=== PATIENT | female | born 1990 | race Caucasian/White ===

== ENCOUNTER 2019-04-21 07:59 | Outpatient (RCR) | payer MEDICAID, SELFPAY ==
[2019-04-21 08:03] VITALS: BMI 52.9
[2019-04-21 08:11] VITALS: BMI 52.9
== END 2019-07-20 23:59 | disposition home or self-care (01) ==
LOC: ANHDMC 07:59
PROVIDERS: Visit Provider Obstetrics & Gynecology
DX: R63.5 Abnormal weight gain (principal); Z71.3 Dietary counseling and surveillance
CPT/HCPCS: 97802

== ENCOUNTER 2019-05-15 21:52 | Observation (INO) | payer MEDICAID, SELFPAY ==
[2019-05-15 22:03] VITALS: BP 149/93; PULSE 116
[2019-05-15 22:16] VITALS: BP 131/81; PULSE 106
--- NOTE | 2019-05-15 22:16 | PC.NURSE ---
pt came into L&D c/o elevated blood sugars. pt states that she has GDM-diet controlled. She checked her blood sugar 1 hour after eating- 173 and rechecked it 1 hour later and it was 189. pt states that she hasnt had any problems with blood sugars until now.
[2019-05-15 22:31] VITALS: BP 116/70; PULSE 108
[2019-05-15 22:46] VITALS: BMI 52.2
--- NOTE | 2019-05-15 22:49 | LDADM ---
This patient, Franca Galvan, was admitted to [facility] on 05/15/19 at 21:52. Plans for labor, pain management and were discussed with patient. Patient/family oriented to hospital policies and general routines including ID bracelet, bed and alarms, visiting hours, pain management, procedures, bathroom and other care routines, personal items, smoking policy, room service/diet and guest tray routines, infant security routines, and visiting hours. Patient/Family are encouraged to report perceived risks to care and to ask questions if they do not understand what they are told or what they should do. See OBIX for further documentation.
--- NOTE | 2019-05-15 22:52 | PC.NURSE ---
[id number]- Dr. Espinal paged through call service [id number]- Dr. Espinal called back. informed of patient admission, lab results discussed. d/c pt home with instructions to continue to monitor BS's and bring the list into the office at the next scheduled office visit.
[2019-05-15 23:01] LABS: Glucose Point of Care 105 (65-105)
--- NOTE | 2019-05-17 13:18 | PM.OBTRLD ---
OB - Triage/Final Diagnosis Visit Information Reason for evaluation: threatened labor Evaluation Laboratory results: Laboratory Tests 05/15/19 22:08 POC Capillary Glucose 105
== END 2019-05-15 22:50 | disposition home or self-care (01) ==
PROVIDERS: Admitting Provider Obstetrics & Gynecology; Visit Provider Obstetrics & Gynecology
DX: O47.03 False labor before 37 completed weeks of gestation, third trimester (principal); Z3A.33 33 weeks gestation of pregnancy
CPT/HCPCS: G0378; G0379

== ENCOUNTER 2019-06-09 11:20 | Outpatient (RCR) | payer MEDICAID, SELFPAY ==
[2019-06-02 11:20] VITALS: BP 138/83; PULSE 94
--- NOTE | 2019-06-02 11:49 | PC.NURSE ---
BPP 10/20 on 06/02/2019
[2019-06-06 16:24] VITALS: BP 126/82; PULSE 95
--- NOTE | ~2019-06-09 | US_ITS ---
EXAMINATION: US OB BPP wo non-stress EXAM DATE: 06/02/2019 11:45 INDICATION: Gestational diabetes. Third trimester. TECHNIQUE: Pelvic obstetrical transabdominal sonogram was performed by a technologist. There are mu ltiple grayscale and Doppler images available for interpretation. FINDINGS: There is a single fetus identified in vertex presentation with a heart rate of 165 beats pe r minute. The placenta is located in the anterior fundal position. There is no sonographic evidence of retroplacental hemorrhage identified. BIOPHYSICAL PROFILE (performed by the technologist) breathing (30 sec sustained breathing in 30 minutes): 2 out of 2 movement (3 gross body movements in 30 minutes): 2 out of 2 tone (one episode of vpgdxjc-rvijmpquy-pmrxmwp limb movement): 2 out of 2 Amniotic fluid pocket (2 cm): 2 out of 2 Total score: 8 out of 8 IMPRESSION: 1. Single fetus with heart rate of 165 bpm. 2. Normal biophysical profile score of 8 out of 8. Reviewed, dictated and finalized at location A.
--- NOTE | ~2019-06-09 | US_ITS ---
EXAMINATION: US OB BPP wo non-stress DATE: 06/06/2019 16:28 INDICATION: Gestational diabetes. Third trimester. TECHNIQUE: Real-time pelvic ultrasound was performed. COMPARISON: Ultrasound 06/02/2019, 11/10/2018 FINDINGS: There is a single living fetus in vertex presentation. The placenta is fundal. heart rate is 1 44 beats per minute (bpm). Biophysical profile performed by the technologist: breathing (30 sec sustained breathing in 30 minutes): 2 out of 2 movement (3 gross body movements in 30 minutes): 2 out of 2 tone (one episode of lpmznds-tesgvcpby-nhlyoab limb movement): 2 out of 2 Amniotic fluid pocket (2 cm): 2 out of 2 Total score: 8 out of 8 IMPRESSION: 1. Single living fetus in vertex presentation. 2. Biophysical profile 8 out of 8. Reviewed, dictated and finalized at location A.
[2019-06-09 12:46] VITALS: BP 127/77; PULSE 103
== END 2019-06-13 14:47 | disposition home or self-care (01) ==
LOC: ANHOBOP 11:20
PROVIDERS: Visit Provider Obstetrics & Gynecology
DX: O24.419 Gestational diabetes mellitus in pregnancy, unspecified control (principal); Z3A.35 35 weeks gestation of pregnancy; Z3A.36 36 weeks gestation of pregnancy
CPT/HCPCS: 59025; 76819

== ENCOUNTER 2019-06-20 11:20 | Outpatient (RCR) | payer MEDICAID, OTHER, SELFPAY ==
[2019-06-13 12:45] VITALS: PULSE 98
--- NOTE | ~2019-06-20 | US_ITS ---
EXAMINATION: US OB BPP wo non-stress DATE: 06/20/2019 12:24 INDICATION: Gestational diabetes. Third trimester. TECHNIQUE: Real-time pelvic ultrasound was performed. COMPARISON: Ultrasound 06/13/2019 FINDINGS: There is a single living fetus in vertex presentation. The placenta is anterior. heart rate is 149 beats per minute (bpm). The amniotic fluid volume is subjectively normal. Biophysical profile performed by the technologist: breathing (30 sec sustained breathing in 30 minutes): 2 out of 2 movement (3 gross body movements in 30 minutes): 2 out of 2 tone (one episode of lecpdjh-nqbnbodiu-vbgyysm limb movement): 2 out of 2 Amniotic fluid pocket (2 cm): 2 out of 2 Total score: 8 out of 8 IMPRESSION: 1. Single living fetus in vertex presentation. 2. Biophysical profile 8 out of 8. Reviewed, dictated and finalized at location A.
--- NOTE | ~2019-06-20 | US_ITS ---
EXAMINATION: US OB limited w BPP DATE: 06/13/2019 13:12 INDICATION: Gestational diabetes, third trimester TECHNIQUE: Real-time pelvic ultrasound was performed. The interpreting radiologist was not present fo r the study. COMPARISON: 06/06/2019 FINDINGS: There is a single living fetus in vertex presentation. The placenta is anterior. heart rate is 157 beats per minute (bpm). The amniotic fluid index is 12.6 cm which is normal Biophysical profile performed by the technologist: breathing (30 sec sustained breathing in 30 minutes): 2 out of 2 movement (3 gross body movements in 30 minutes): 2 out of 2 tone (one episode of wxavdar-hxljtsfqg-mlepwrd limb movement): 2 out of 2 Amniotic fluid pocket (2 cm): 2 out of 2 Total score: 8 out of 8 IMPRESSION: 1. Single living fetus in vertex presentation. 2. Biophysical profile 8 out of 8. 3. Normal amniotic fluid index. Reviewed, dictated and finalized at location A.
[2019-06-20 12:23] VITALS: BP 136/82; PULSE 98
== END 2019-06-22 07:40 | disposition home or self-care (01) ==
LOC: ANHOBOP 11:20
PROVIDERS: Visit Provider Obstetrics & Gynecology
DX: O24.419 Gestational diabetes mellitus in pregnancy, unspecified control (principal); Z3A.37 37 weeks gestation of pregnancy; Z3A.38 38 weeks gestation of pregnancy
CPT/HCPCS: 59025; 76815; 76819

== ENCOUNTER 2019-06-21 10:13 | Inpatient (IN) | payer OTHER, SELFPAY ==
[2019-06-21] VITALS (42 sets, daily range): BP systolic 104–203; BP diastolic 66–186; PULSE 77–176; RESP 16–18; TEMP 35.9–36.9; O2SAT 98–100; BMI 56.0
--- NOTE | 2019-06-21 10:58 | WPDANESEPPF ---
Anes - Initial Pre Proc Eval Procedure: Operation Date: 06/28/19 12:00 Proposed Procedures p Primary Section - Shyam Espinal MD Date/Time: 06/21/19 10:58 Surgeon: Shyam Espinal MD Pre Op Diagnosis: hypertension in pregancy/c/s Patient Data Age: 28 Gender: F Height: Weight: Last Vital Signs Pulse 112 H 06/21/19 10:46 BP 157/91 H 06/21/19 10:46 Allergies Allergy/AdvReac Type Severity Reaction Status Date / Time diphenhydramine AdvReac Hyperactive Verified 06/05/19 12:30 [From Benadryl] Home Medications Medication Instructions Recorded Confirmed Type PNV cmb#95-ferrous fumarate-FA 1 tablet PO DAILY 06/05/19 06/06/19 History [] aripiprazole [Abilify] 10 mg PO DAILY 06/05/19 06/06/19 History aspirin [Aspirin Low Dose] 81 mg PO DAILY 06/05/19 06/06/19 History Patient hx anesthesia problems: post op nausea/vomiting Family hx anesthesia problems: none PMFSH Past Medical History Medical History Achalasia Anxiety Bipolar 1 disorder Diabetes Family History Family History Mother Multiple sclerosis Hypertension Grandparent Parkinson disease Father Colon cancer Sibling Kidney stones Social History Social History Substance use: never Spiritual care concerns: No Anes - Eval Final PreProcedure Day of Procedure 06/21/19 10:58 Patient weight: morbidly obese Heart: regular rate and rhythm Lungs: clear to auscultation Airway: Mallampati scale class III Neurological: alert and oriented Last oral intake: >/= 8 hours ASA classification: III Emergent: no Anesthetic plan: proceed Anesthesia type and monitoring: regional spinal and standard monitoring Informed Consent: The patient's anesthetic plan and its attendant risks and benefits were discussed with the patient/family/POA. Questions were solicited and answers provided to the satisfaction of the patient/family/POA.
[2019-06-21 11:09] LABS: Basophils Percent Auto 0.3 % (0.2-1.2); Eosinophils Absolute Auto 0.1 K/mm3 (0-0.3); Eosinophils Percent Auto 0.7 % (0-4.4); Hemoglobin 11.5 g/dL (12.0-15.0); Immature Granulocyte Absolute 0.09 K/mm3 (0.00-0.031); Immature Granulocyte Percent A 0.6 % (0-0.5); Lymphocytes Absolute Auto 2.45 K/mm3 (0.9-3.2); Lymphocytes Percent Auto 17.6 % (18.3-44.2); Mean Corpuscular HGB Conc 31.1 g/dl (32-36); Mean Corpuscular Hemoglobin 24.3 pg (26-34); Mean Corpuscular Volume 78.1 fl (80-100); Mean Platelet Volume 10.1 fl (7.4-10.4); Monocytes Absolute Auto 0.9 K/mm3 (0.1-0.6); Monocytes Percent Auto 6.7 % (2.6-8.5); Neutrophils Absolute Auto 10.3 K/mm3 (1.3-6.7); Neutrophils Percent Auto 74.1 % (45.5-73.1); Platelet Count Result 297 k/mm3 (150-375); Red Blood Count 4.74 M/mm3 (4.2-5.4); Red Cell Distribution Width 14.7 % (11.5-14.5)
--- NOTE | 2019-06-21 11:12 | LDADM ---
This patient, Franca Galvan, was admitted to Labor/Delivery/Recovery 119 on 06/21/19 at 10:13. Plans for labor, pain management and were discussed with patient. Patient/family oriented to hospital policies and general routines including ID bracelet, bed and alarms, visiting hours, pain management, procedures, bathroom and other care routines, personal items, smoking policy, room service/diet and guest tray routines, security routines, and visiting hours. Patient/Family are encouraged to report perceived risks to care and to ask questions if they do not understand what they are told or what they should do. See OBIX for further documentation.
--- NOTE | 2019-06-21 11:13 | PM.IMHP ---
H&P: HPI History of Present Illness Chief complaint: hypertension in pregancy/c/s Narrative: Franca Galvan is a 28 year old female 1 presents for primary section. Had been followed for gestational diabetes with testing growth scans and blood sugars all of which were normal. Presented the office today with elevated blood pressures swelling and proteinuria. We had been discussing due to macrosomia vaginal delivery versus section and today she does desire to proceed with primary section. No desire for trial of labor. Review of Systems Review of Systems: All systems reviewed & are unremarkable except as noted in HPI and below PMFSH Past Medical History Medical History Achalasia Anxiety Bipolar 1 disorder Diabetes Family History Family History Mother Multiple sclerosis Hypertension Grandparent Parkinson disease Father Colon cancer Sibling Kidney stones Social History Social History Substance use: never Spiritual care concerns: No Meds Home Medications and Allergies Home Medications Medication Instructions Recorded Confirmed Type PNV cmb#95-ferrous fumarate-FA 1 tablet PO DAILY 06/05/19 06/06/19 History [] aripiprazole [Abilify] 10 mg PO DAILY 06/05/19 06/06/19 History aspirin [Aspirin Low Dose] 81 mg PO DAILY 06/05/19 06/06/19 History Allergies Allergy/AdvReac Type Severity Reaction Status Date / Time diphenhydramine AdvReac Hyperactive Verified 06/05/19 12:30 [From Benadryl] Vital Signs Vital Signs - 24 hr 06/21/19 10:46 06/21/19 11:01 Pulse Rate 112 H 114 H Blood Pressure 157/91 H 139/121 H Exam Const: General: no acute distress Resp: Auscultation: clear to auscultation bilaterally Cardio: Rate: regular rate Rhythm: regular rhythm GI: Auscultation: normal bowel sounds Other: FH 40 FHT 150 Extrem: General: pedal edema Assessment and Plan Assessment and plan (1) Delivery by elective section: Code(s): O82 - Encounter for delivery without indication Status: Acute Assessment and Plan: Will proceed with baseline labs and follow with primary delivery. (2) Gestational [-induced] hypertension without significant proteinuria, complicating childbirth: Code(s): O13.4 - Gestational [-induced] hypertension without significant proteinuria, complicating childbirth Status: Acute (3) Gestational diabetes mellitus: Code(s): O24.419 - Gestational diabetes mellitus in , unspecified control Status: Acute
[2019-06-21 11:22] LABS: Alanine Aminotransferase 9 U/L (4-35); Albumin Level 3.3 g/dL (3.5-5.1); Alkaline Phosphatase 156 U/L (38-126); Aspartate Amino Transferase 20 U/L (14-36); Bilirubin,Total 0.4 mg/dL (0.2-1.3); Blood Urea Nitrogen 7 mg/dL (7-17); Calcium 9.3 mg/dL (8.4-10.2); Carbon Dioxide 18 mmol/L (22-30); Chloride 109 mmol/L (98-107); Estimated CRCL calculation 158 ml/min; Estimated Glomerular Filt Rate > 60; Glucose 94 mg/dL (65-105); Potassium 3.9 mmol/L (3.4-5.0); Sodium 135 mmol/L (137-145); Uric Acid 5.1 mg/dL (2.5-7.5)
[2019-06-21] MEDS: LACTATED RINGERS 1,000 ML 125 ML IV CONT ×2 (11:23→12:25)
[2019-06-21] MEDS: ceFAZolin 3 GM/D5W 100 ML 100 ML IVPB (12:46)
--- NOTE | 2019-06-21 13:40 | PM.OBPRVD ---
OB - Delivery Note Procedure Delivery date: 06/21/19 Procedure: Procedures Operation Date: 06/21/19 12:00 Actual Procedures Side Surgeon p Section Shyam Espinal MD events: Gestational Diabetes and Induced HTN Route of delivery: Specimen: Yes Estimated blood loss (mL): 550 Anesthesia type: Spinal Disposition: PACU Narrative: Patient was prepped and draped in usual manner for this procedure. Pfannenstiel incision was made and carried down to the fascia. Fascial incision was extended bilaterally the length of the skin incision. Superiorly and inferiorly dissected away from the rectus muscle which were then and peritoneum was readily entered. Bladder flap was developed. Uterus scored and incised in a low transverse manner. Vertex was delivered section naso-oropharynx rest of baby was delivered cord was clamped and cut placenta removed manually. Uterus was exteriorized cleared of membranes and clots and closed using 0 Monocryl running interlocking manner. Uterus was returned to the abdominal cavity and gutters were cleared of serosanguineous fluid and clots. All subfascial tissue was noted be hemostatic and the fascia was then approximated 0 Vicryl suture from left angle to the midline a running Sineff midline good approximation hemostasis noted. Subcutaneous tissue was approximated 0 plain suture. Carole used to approximate the skin edges. This point seizure was considered terminated immediate postop condition of mother and baby were both excellent. [place] Baby Weeks of gestation at delivery: 38 Infant gender: Male Weight (pounds): 10 Weight (ounces): 6 presentation: vertex Placenta delivery description: Manual Removal cord vessel description: 3 Vessels score one minute: 8 score five minutes: 9
[2019-06-21] MEDS: OXYTOCIN 30 UNITS/NS 500 ML 30 UNITS/500 ML BAG 125 UNITS IV CONT (15:54)
--- NOTE | 2019-06-21 16:00 | PC.NURSE ---
PT arrived on unit via stretcher accompanied by her mother and and taken to room 278. PT oriented to room and surrounding area. PT introductions made and plan of care discussed per post op c section, pain management, breast feeding, daily care activities. Welcome packet reviewed and discussed. PT verbalized understanding of such care.
[2019-06-21] MEDS: KETOROLAC 30 MG/ML VIAL (*BKC) IV PUSH (17:53)
[2019-06-21] MEDS: LANOLIN (LANSINOH) 7.5 GM CREAM 1 APPLIC TOPICAL (17:54)
[2019-06-21] MEDS: SIMETHICONE 80 MG TAB.CHEW PO (17:54)
[2019-06-21] MEDS: NALBUPHINE HCL 10 MG/ML AMPUL 4 MG IV PUSH (19:20)
[2019-06-21] MEDS: DEXTROSE 5%/0.45% SOD CHL 1,000 ML 125 ML IV CONT (21:23)
[2019-06-22] VITALS: BP 134/79; PULSE 84; RESP 18; TEMP 36.6; O2SAT 99
[2019-06-22] MEDS: KETOROLAC 30 MG/ML VIAL (*BKC) IV PUSH (00:30)
[2019-06-22] MEDS: TETANUS,DIPHTHERIA,AC PERTUSSIS ADULT (0.5 ML) BOOSTRIX IM (00:30)
[2019-06-22 05:00] VITALS: BP 120/74; PULSE 85; RESP 18; TEMP 36.9; O2SAT 99
[2019-06-22] MEDS: ACETAMINOPHEN 325 MG TABLET 650 MG PO (05:14)
[2019-06-22 05:46] LABS: Basophils Percent Auto 0.2 % (0.2-1.2); Eosinophils Absolute Auto 0.1 K/mm3 (0-0.3); Eosinophils Percent Auto 0.6 % (0-4.4); Hematocrit 29.5 % (37.0-47.0); Hemoglobin 9.2 g/dL (12.0-15.0); Immature Granulocyte Percent A 0.8 % (0-0.5); Lymphocytes Absolute Auto 2.38 K/mm3 (0.9-3.2); Mean Corpuscular HGB Conc 31.2 g/dl (32-36); Mean Corpuscular Hemoglobin 24.6 pg (26-34); Mean Corpuscular Volume 78.9 fl (80-100); Mean Platelet Volume 10.4 fl (7.4-10.4); Monocytes Percent Auto 8.7 % (2.6-8.5); Neutrophils Absolute Auto 8.3 K/mm3 (1.3-6.7); Neutrophils Percent Auto 69.7 % (45.5-73.1); Platelet Count Result 227 k/mm3 (150-375); Red Blood Count 3.74 M/mm3 (4.2-5.4); Red Cell Distribution Width 14.6 % (11.5-14.5); White Blood Count 11.9 K/mm3 (4.5-10.0)
--- NOTE | 2019-06-22 08:00 | PC.NURSE ---
Pt introductions made and plan of care discussed per post op c section, pain management, daily care activities. PT verbalized understanding of such care.
[2019-06-22 08:05] VITALS: BP 134/88; PULSE 88; RESP 18; TEMP 36.9; O2SAT 99
[2019-06-22 08:26] LABS: Rapid Plasma Reagin Non-Reactive (NonReactive)
--- NOTE | 2019-06-22 08:26 | PM.OBDSVD ---
DS: Diagnosis Admitting Diagnosis Admitting Diagnosis: Encounter for delivery without indication OB - DS: Summary OB Procedures : PIH Mgmt OB Procedures Intrapartum: OB Procedures: : None Peripartum Data Procedures: Procedures Operation Date: 06/21/19 12:00 Actual Procedures Side Surgeon p Section Bilateral Shyam Espinal MD Time Spent with Patient Time attestation: Total time spent providing and/or coordinating discharge services: DS: Data Data Completed and Pending Pending studies at discharge: Pending at discharge 06/21/19 13:25 Surgical [PTH] Routine Labs on day of discharge: Labs from last 24 hours 06/22/19 06/21/19 06/21/19 04:43 10:59 10:59 WBC 11.9 H RBC 3.74 L Hgb 9.2 L Hct 29.5 L MCV 78.9 L MCH 24.6 L MCHC 31.2 L RDW 14.6 H Plt Count 227 MPV 10.4 Immature Gran % (Auto) 0.8 H Neut % (Auto) 69.7 Lymph % (Auto) 20.0 Atlantic % (Auto) 8.7 H Eos % (Auto) 0.6 Baso % (Auto) 0.2 Lymph # (Auto) 2.38 [place] # (Auto) 1.0 H Eos # (Auto) 0.1 Baso # (Auto) 0.0 Abs Immat Gran (auto) 0.10 H Absolute Neuts (auto) 8.3 H Absolute Nucleated RBC 0.0 Nucleated RBC % 0.0 Sodium 135 L Potassium 3.9 Chloride 109 H Carbon Dioxide 18 L BUN 7 Creatinine 0.60 L Estim Creat Clear Calc 158 Estimated GFR > 60 Glucose 94 Uric Acid 5.1 Calcium 9.3 Total Bilirubin 0.4 AST 20 ALT 9 Alkaline Phosphatase 156 H Total Protein 7.0 Albumin 3.3 L RPR Blood Type O Positive Antibody Screen Negative 06/21/19 06/21/19 10:59 10:59 WBC 14.0 H RBC 4.74 Hgb 11.5 L Hct 37.0 MCV 78.1 L MCH 24.3 L MCHC 31.1 L RDW 14.7 H Plt Count 297 MPV 10.1 Immature Gran % (Auto) 0.6 H Neut % (Auto) 74.1 H Lymph % (Auto) 17.6 L Atlantic % (Auto) 6.7 Eos % (Auto) 0.7 Baso % (Auto) 0.3 Lymph # (Auto) 2.45 [place] # (Auto) 0.9 H Eos # (Auto) 0.1 Baso # (Auto) 0.0 Abs Immat Gran (auto) 0.09 H Absolute Neuts (auto) 10.3 H Absolute Nucleated RBC 0.0 Nucleated RBC % 0.0 Sodium Potassium Chloride Carbon Dioxide BUN Creatinine Estim Creat Clear Calc Estimated GFR Glucose Uric Acid Calcium Total Bilirubin AST ALT Alkaline Phosphatase Total Protein Albumin RPR Pending Blood Type Antibody Screen Discharge Plan Discharge Discharging Clinician: Shyam Espinal Patient Disposition: Home, Self-Care Activity: as tolerated Diet: as tolerated Wound Care Instructions: incision open to air Discharge Instructions: office wednesday for staple removal Patient Instructions: Antibiotic Form Stand Alone Forms: General Discharge Information Follow-up/Referrals: Shyam Espinal MD [Physician] - 3 Weeks Discharge Medications: New hydrocodone-acetaminophen 5-325 mg Tablet 1 tab PO Q3H PRN (Reason: Moderate Pain (4-6)) Qty: 20 RF: 0 ibuprofen 600 mg Tablet 600 mg PO Q6H PRN (Reason: Cramping) Qty: 30 RF: 0 Continued aripiprazole [Abilify] 10 mg Tablet 10 mg PO DAILY RF: 0 PNV cmb#95-ferrous fumarate-FA [] 28 mg iron- 800 mcg Tablet 1 tablet PO DAILY RF: 0 Discontinued aspirin [Aspirin Low Dose] 81 mg Tablet,Delayed Release (Dr/Ec) 81 mg PO DAILY RF: 0 Date of admission: 06/21/19 10:13 Primary Care Provider: UNKNOWN,DOCTOR Admitting Provider: Shyam Espinal Attending physician on admission: Shyam Espinal
--- NOTE | 2019-06-22 08:55 | PC.NURSE ---
Consulted with patient,mother reports infant was sleepy during the night and was bottle fed. Mother wishes to continue to supplement after . Reviewed infant feeding cues, frequencies, duration of feedings, feeding elimination flow sheet, and signs of adequate intake. Demonstrated stimulation techniques to wake infant for feeding. Assisted with to breast. Reviewed positioning/alignment in cross cradle, holding breast in U hold and guided asymmetrical latch on. Discussed rational for each. Infant was able to latch correctly within a few attempts. Advised to stimulate to keep infant awake and nursing effectively and for increased intake and assist with maintaining deep latch. Infant nursed eagerly, with steady draws and frequent swallowing noted. Reviewed signs of a correct latch, effective nursing and suck swallow ratio. Nipple care reviewed. Instructed mother to call out for RN assistance if she is unable to latch infant for feeding or she has discomfort with nursing. Instructed feeding should be initiated three hours from start of last feeding or if feeding cues are noted before. Mother voiced understanding of information shared.
[2019-06-22] MEDS: SIMETHICONE 80 MG TAB.CHEW PO ×2 (10:51→15:02)
[2019-06-22] MEDS: POLYSACCHARIDE IRON COMPLEX 150 MG CAPSULE PO ×2 (10:51→18:21)
[2019-06-22] MEDS: MULTIVIT/MIN/PREN/FOL AC/IRON TABLET 1 TAB PO (10:51)
[2019-06-22] MEDS: DOCUSATE SODIUM 100 MG CAPSULE PO ×2 (10:51→18:21)
[2019-06-22 10:52] VITALS: PULSE 87; RESP 18; O2SAT 98
[2019-06-22] MEDS: IBUPROFEN 600 MG TABLET PO ×2 (10:52→15:01)
[2019-06-22 12:00] VITALS: BP 134/89; PULSE 87; RESP 18; TEMP 36.6; O2SAT 98
[2019-06-22] MEDS: ARIPIPRAZOLE 10 MG TABLET PO (15:01)
--- NOTE | 2019-06-22 17:00 | WPDANLDNPN2 ---
Anes-Prog Note L&D-Neuraxial Date/Time: 06/22/19 17:00 Neuraxial medications: intrathecal PF morphine Opiod-related complaints: none Patient feedback: Patient satisfied with post-operative pain management.
--- NOTE | 2019-06-22 19:24 | PC.NURSE ---
Instructed pt to feed baby more frequently and to call for assistance with feedings. PT also instructed to be ambulatory and walk in room to facilitate gas expulsion. PT became tearful and stated that it was a frustration to feed that baby . Attempted to answer questions and to encourage pt regarding the breast feeding experience and policy and that we wanted to support and assist her in whatever feeding choice she made for her baby.PT seemed to stop crying and stated that she was just tired. PT was encouraged to nap and to get the rest she needed but to ambulate and shower this evening as well as ask for assistance with feedings. PT verbalized understanding of such instructions.
[2019-06-22 20:25] VITALS: BP 117/73; PULSE 97; RESP 18; TEMP 36.6; O2SAT 99
[2019-06-23] MEDS: IBUPROFEN 600 MG TABLET PO ×2 (00:17→09:40)
[2019-06-23] MEDS: SIMETHICONE 80 MG TAB.CHEW PO (00:17)
[2019-06-23 07:35] VITALS: BP 152/89; PULSE 96; RESP 16; TEMP 37; O2SAT 100
--- NOTE | 2019-06-23 09:30 | PC.NURSE ---
Mother continues to independently attempt to latch infant each feeding. Mother demonstrates appropriate positioning/alignment. Infant makes eager attempts at times; mother will supplement EBM/formula to after each attempt. She denies any nipple discomfort, with feeding or pumping. Infant is more awake and making eager attempts latching for several minutes each feeding. is currently meeting outcomes for weight, output, jaundice and feeding frequencies. Mother states she feels confident to continue her /bottle feeding plan at home. Reviewed transition to breast milk, signs of adequate intake, and engorgement/relief. Instructed to call ICP if intake/output less than required. Reviewed regular medications mother is taking. Information provided per [facility]. Reviewed community resources on the [facility] website and in the Mom/Baby guide. Mother has a Medela pump for home use. Information on outpatient services provided. Mother is also a [facility] client, advised mother to contact [place] or call for [facility] if questions or concerns. Mother has no further questions at this time.
[2019-06-23] MEDS: POLYSACCHARIDE IRON COMPLEX 150 MG CAPSULE PO (09:39)
[2019-06-23] MEDS: ARIPIPRAZOLE 10 MG TABLET PO (09:39)
[2019-06-23] MEDS: MULTIVIT/MIN/PREN/FOL AC/IRON TABLET 1 TAB PO (09:39)
[2019-06-23] MEDS: DOCUSATE SODIUM 100 MG CAPSULE PO (09:39)
[2019-06-24 10:20] VITALS: BP 155/93; PULSE 97; RESP 20; TEMP 36.8; O2SAT 100
--- NOTE | 2019-06-26 20:28 | PM.OBDSVD ---
DS: Diagnosis Admitting Diagnosis Admitting Diagnosis: Encounter for delivery without indication OB - DS: Summary OB Procedures : None OB Procedures Intrapartum: OB Procedures: : None Peripartum Data Procedures: Procedures Operation Date: 06/21/19 12:00 Actual Procedures Side Surgeon p Section Bilateral Shyam Espinal MD Time Spent with Patient Time attestation: Total time spent providing and/or coordinating discharge services: DS: Data Data Completed and Pending Completed studies during hospitalization: Pending at discharge 06/21/19 13:25 Surgical [PTH] Routine Discharge Plan Discharge Consulting providers: Neal Wilson ; Adam Braden Discharging Clinician: Shyam Espinal Patient Disposition: Home, Self-Care Activity: as tolerated Diet: as tolerated Wound Care Instructions: incision open to air Discharge Instructions: Education: Mom and Baby Guide Given to: Patient Follow-Up: Call your delivering provider's office for an appointment to be seen in: Wednesday06/26/2019 Mom and baby should come to the [facility] for the follow-up appointment. Appointment Date/Time: Wednesday06/24/2019 at 10:00 am Call [phone] if you are unable to keep your appointment time. BREAST CARE: 1. Wear a snug supportive bra. 2. For engorgement discomfort: Breast Feeding: A. Apply warm moist washcloths B. Express milk as needed to relieve engorgement C. Wear loose clothing Bottle Feeding: A. May apply ice packs 3. For sore nipples: A. Identify correct latch-on B. Apply warm moist washcloths before and after nursing C. Air dry nipples after nursing D. May apply Lansinoh cream to nipples ABDOMINAL INCISION: (if applicable) 1. Allow incision to air dry 2. Do NOT use lotions for powders on your incision 3. When showering, allow soap and water to run over the incision, but do not wash incision PERINEAL CARE: 1. Until bleeding stops, use your nu bottle after urinating 2. Change your pad frequently throughout the day 3. No tub baths until seen by your physician - You may shower ACTIVITY: 1. Rest as much as possible. 2. Do not exercise or lift anything heavier than your baby (such as laundry or other children.) 3. Avoid stairs or driving as much as possible. 4. Do not put anything into the vagina. No douching, tampons, or sexual activity until seen by physician. NOTIFY PHYSICIAN IF YOU HAVE ANY QUESTIONS OR IF ANY OF THE FOLLOWING SYMPTOMS OCCUR: 1. If your episiotomy or incision becomes red, swollen, or more painful than what you have experienced in the hospital. 2. If your vaginal bleeding becomes foul smelling. 3. If your vaginal bleeding becomes more heavy than a period or if your bleeding changes from pink to bright red. However, you may pass an occasional walnut-sized clot once or twice for the first week . 4. If you experience a sharp, shooting pain in you calves. 5. If you discover a hard, reddened area on your breast or if you experience flu-like symptoms. DIET: 1. Eat regular, well-balanced meals. 2. Drink plenty of fluids daily. If , drink to thirst.office wednesday for staple removal Follow-up/Referrals: Shyam Espinal MD [Physician] - 3 Weeks Discharge Medications: New hydrocodone-acetaminophen 5-325 mg Tablet 1 tab PO Q3H PRN (Reason: Moderate Pain (4-6)) Qty: 20 RF: 0 ibuprofen 600 mg Tablet 600 mg PO Q6H PRN (Reason: Cramping) Qty: 30 RF: 0 Continued aripiprazole [Abilify] 10 mg Tablet 10 mg PO DAILY RF: 0 PNV cmb#95-ferrous fumarate-FA [] 28 mg iron- 800 mcg Tablet 1 tablet PO DAILY RF: 0 Discontinued aspirin [Aspirin Low Dose] 81 mg Tablet,Delayed Release (Dr/Ec) 81 mg PO DAILY RF: 0 Date of admission: 06/21/19 10:13
== END 2019-06-23 15:01 | disposition home or self-care (01) | DRG 540 ==
LOC: ANHLDR 11:04 → ANHOB2 16:49
PROVIDERS: Admitting Provider Obstetrics & Gynecology; Visit Provider Obstetrics & Gynecology
DX: O13.4 Gestational [pregnancy-induced] hypertension without significant proteinuria, complicating childbirth (principal); Z37.0 Single live birth; Z3A.38 38 weeks gestation of pregnancy; O24.429 Gestational diabetes mellitus in childbirth, unspecified control; O99.214 Obesity complicating childbirth; E66.01 Morbid (severe) obesity due to excess calories; O99.344 Other mental disorders complicating childbirth; F31.9 Bipolar disorder, unspecified; F41.9 Anxiety disorder, unspecified
CPT/HCPCS: 36415; 80053; 84550; 85025; 86592; 86850; 86900; 86901; 88307; 90715; A9270; J0131; J0690; J1885; J2274; J2300; J2370; J2405; J2590; J7120

== ENCOUNTER 2020-04-02 09:55 | Emergency (ER) | payer OTHER, SELFPAY ==
--- NOTE | ~2020-04-02 | US_ITS ---
EXAMINATION: US OB <=14 wk fetus w TV DATE: 04/02/2020 11:02 INDICATION: Spotting. TECHNIQUE: Real-time transabdominal and transvaginal pelvic ultrasound was performed. COMPARISON: None. FINDINGS: TRANSABDOMINAL ULTRASOUND: The uterus measures 9.0 x 6.5 x 5.0 cm. TRANSVAGINAL ULTRASOUND: There is a cyst in the endometrial complex with mean diameter of 1.1 cm with intradecidual sign. There is a small hematoma in the endometrial complex adjacent to this cyst. A cu rvilinear echo in the cyst may be a yolk sac. No pole is identified. The right ovary measures 3 .6 x 2.3 x 1.7 cm. The left ovary measures 3.6 x 2.3 x 1.8 cm. There is no free fluid in the pelvis. IMPRESSION: 1. Cyst in the endometrial complex that may be a gestational sac with small subchorionic hematoma wi th estimated gestational age of 5 weeks and 5 days and estimated date of delivery of 11/28/2020. Ectop ic and spontaneous are not excluded. Serial beta-hCGs are recommended. Reviewed, dictated and finalized at location B. SFUSION NURSE IMPRESSION: 1. Cyst in the endometrial complex that may be a gestational sac with small osorio bchorionic hematoma with estimated gestational age of 5 weeks and 5 days and es timated date of delivery of 11/28/2020. Ectopic and spontaneous aborti on are not excluded. Serial beta-hCGs are recommended.
[2020-04-02 10:05] VITALS: BP 153/95; PULSE 88; RESP 16; TEMP 36.7; O2SAT 97
--- NOTE | 2020-04-02 10:50 | ED.GENADULT ---
HPI - General Adult General Chief complaint: Vaginal Bleeding Stated complaint: 8 wks , spotting Time Seen by Provider: 04/02/20 10:07 Source: patient Mode of arrival: ambulatory Limitations: no limitations History of Present Illness HPI narrative: Patient G2, P1 presents with chief complaint of vaginal spotting over the past 4 days. Patient's last menstrual period was 02/02/2019. Her [employer]ACT[employer] PROFESSOR is Dr. Espinal and when she called his office to inform her of her symptoms accompanied by mild pelvic cramping right worse than left, she was instructed to present for outpatient ultrasound. Patient states that she presented to the imaging center here in [place] however there was issues getting prior authorization by the insurance so she was told by imaging center staff to come to the emergency department. Patient states she has had mild headache but otherwise denies any nausea, vomiting, passage of blood clots, changes in stools, chest pain, shortness of breath or any other symptoms. Patient states that her last was 9 months ago and resulted in healthy live . Patient reports her only chronic medical condition is achalasia. Patient reports taking a daily vitamin. Related Data Home Medications Medication Instructions Recorded Confirmed PNV b#95-ferrous fumarate-FA 1 tablet PO DAILY 06/05/19 06/21/19 [] Allergies Allergy/AdvReac Type Severity Reaction Status Date / Time diphenhydramine AdvReac Hyperactive Verified 04/02/20 10:09 [From Carlos] Review of Systems Review of Systems: Narrative: CONSTITUTIONAL: Denies fever, chills, or sweats. EYES: Denies visual changes, redness, or discharge. ENT: Denies rhinorrhea, congestion, sore throat, or otalgia. CARDIOVASCULAR: Denies chest pain, palpitations, or edema. RESPIRATORY: Denies cough or dyspnea. GASTROINTESTINAL: Denies abdominal pain, nausea, vomiting, or diarrhea. GENITOURINARY: Reports vaginal bleeding and pelvic cramping denies dysuria or hematuria. SKIN: Denies rash or itching. MUSCULOSKELETAL: Denies back pain, joint pain, or myalgia. NEUROLOGIC: Denies headache, numbness, dizziness, or weakness. PSYCHIATRIC: Denies anxiety or depression. [facility] Past Medical History Medical History (Updated 04/02/20 @ 12:53 by Maru Lopez PA-C) Achalasia Anxiety Bipolar 1 disorder Diabetes Family History Family History Mother Multiple sclerosis Hypertension Grandparent Parkinson disease Father Colon cancer Sibling Kidney stones Social History Social History Smoking status: Never smoker Substance use: never Spiritual care concerns: No Exam Narrative: Exam Narrative: GENERAL: Well-appearing, well-nourished, and in no acute distress. Patient talking & smiling during exam. HEAD: Normocephalic, atraumatic. EYES: PERRLA and EOMI. CHEST: Clear to auscultation. No respiratory distress. No wheezes rales or rhonchi. HEART: Regular rate and rhythm. ABDOMEN: Soft, nontender, nondistended, normal active bowel sounds. Pelvic declined. EXTREMITIES: Normal range of motion. No edema. SKIN: Warm, dry, no rash. NEURO: No focal deficits. Alert and oriented x3. PSYCH: Normal mood and affect. Course Vital Signs Vital signs: Vital Signs Temperature 98.1 F 04/02/20 10:05 Pulse Rate 88 04/02/20 10:05 Respiratory Rate 16 04/02/20 10:05 Blood Pressure 153/95 H 04/02/20 10:05 Pulse Oximetry 97 04/02/20 10:05 Temperature 98.1 F 04/02/20 10:05 Pulse Rate 88 04/02/20 10:05 Respiratory Rate 16 04/02/20 10:05 Blood Pressure 153/95 H 04/02/20 10:05 Pulse Oximetry 97 04/02/20 10:05 Medical Decision Making MDM Narrative Medical decision making narrative: Consult with Dr. Espinal regarding patient's presentation, lab work, ultrasound. He states that there is not any additional wor
[2020-04-02 11:11] LABS: Basophils Percent Auto 0.4 % (0.2-1.2); Eosinophils Absolute Auto 0.3 K/mm3 (0-0.3); Eosinophils Percent Auto 2.8 % (0-4.4); Hemoglobin 14.9 g/dL (12.0-15.0); Immature Granulocyte Absolute 0.06 K/mm3 (0.00-0.031); Immature Granulocyte Percent A 0.6 % (0-0.5); Lymphocytes Absolute Auto 2.83 K/mm3 (0.9-3.2); Lymphocytes Percent Auto 26.5 % (18.3-44.2); Mean Corpuscular HGB Conc 31.7 g/dl (32-36); Mean Corpuscular Volume 88.2 fl (80-100); Mean Platelet Volume 9.3 fl (7.4-10.4); Monocytes Absolute Auto 0.7 K/mm3 (0.1-0.6); Monocytes Percent Auto 6.6 % (2.6-8.5); Neutrophils Absolute Auto 6.8 K/mm3 (1.3-6.7); Neutrophils Percent Auto 63.1 % (45.5-73.1); Platelet Count Result 326 k/mm3 (150-375); Red Blood Count 5.33 M/mm3 (4.2-5.4); Red Cell Distribution Width 13.6 % (11.5-14.5); White Blood Count 10.7 K/mm3 (4.5-10.0)
[2020-04-02 11:18] LABS: Add Urine Microscopic? YES; Appearance Urine Clear (Clear); Bacteria Urine Trace /hpf; Bilirubin Urine Negative (Negative); Blood Urine 2+ (Negative); Color Urine Straw (Yellow); Glucose Urine UA Negative (Negative); Ketones Urine Negative (Negative); Leukocyte Esterase Ur Negative LEU/UL (Negative); Mucus Urine Rare /lpf; Nitrate Urine Negative (Negative); Protein Urine Negative (Negative); Specific Grav Ur 1.009 (1.001-1.035); Squamous Epithelial Cell Urine Occasional /hpf (Few); Urobilinogen Urine Negative mg/dL (<2.0); WBC Urine 0-3 /hpf
[2020-04-02 11:22] LABS: Alanine Aminotransferase 20 U/L (4-35); Albumin Level 4.2 g/dL (3.5-5.1); Alkaline Phosphatase 75 U/L (38-126); Anion Gap 6 mmol/L (8-16); Aspartate Amino Transferase 24 U/L (14-36); Bilirubin,Total 0.9 mg/dL (0.2-1.3); Blood Urea Nitrogen 8 mg/dL (7-17); Carbon Dioxide 24 mmol/L (22-30); Chloride 104 mmol/L (98-107); Estimated CRCL calculation 119 ml/min; Estimated Glomerular Filt Rate > 60; Glucose 97 mg/dL (65-105); Potassium 4.2 mmol/L (3.4-5.0); Sodium 134 mmol/L (137-145)
== END 2020-04-02 13:41 | disposition home or self-care (01) ==
PROVIDERS: Physician Assistant; Emergency Provider Emergency Medicine; PCP Obstetrics & Gynecology
DX: O20.9 Hemorrhage in early pregnancy, unspecified (principal); Z3A.01 Less than 8 weeks gestation of pregnancy
CPT/HCPCS: 36415; 76801; 76817; 80053; 81001; 84702; 85025; 99284

== ENCOUNTER 2020-04-04 18:19 | Emergency (ER) | payer OTHER, SELFPAY ==
[2020-04-04 19:49] VITALS: BP 173/90; PULSE 92; RESP 18; TEMP 36.4; O2SAT 100
[2020-04-04 20:03] LABS: Basophils Absolute Auto 0.1 K/mm3 (0.0-0.1); Basophils Percent Auto 0.4 % (0.2-1.2); Eosinophils Absolute Auto 0.4 K/mm3 (0-0.3); Eosinophils Percent Auto 3.1 % (0-4.4); Hematocrit 44.1 % (37.0-47.0); Hemoglobin 14.3 g/dL (12.0-15.0); Immature Granulocyte Absolute 0.07 K/mm3 (0.00-0.031); Immature Granulocyte Percent A 0.5 % (0-0.5); Lymphocytes Absolute Auto 3.63 K/mm3 (0.9-3.2); Lymphocytes Percent Auto 26.8 % (18.3-44.2); Mean Corpuscular HGB Conc 32.4 g/dl (32-36); Mean Corpuscular Hemoglobin 27.8 pg (26-34); Mean Corpuscular Volume 85.8 fl (80-100); Mean Platelet Volume 9.2 fl (7.4-10.4); Monocytes Absolute Auto 0.9 K/mm3 (0.1-0.6); Monocytes Percent Auto 6.9 % (2.6-8.5); Neutrophils Absolute Auto 8.4 K/mm3 (1.3-6.7); Neutrophils Percent Auto 62.3 % (45.5-73.1); Platelet Count Result 325 k/mm3 (150-375); Red Blood Count 5.14 M/mm3 (4.2-5.4); Red Cell Distribution Width 13.4 % (11.5-14.5); White Blood Count 13.5 K/mm3 (4.5-10.0)
--- NOTE | 2020-04-04 22:01 | ED.FEMALEGU ---
HPI - Female Genitourinary General Chief complaint: Vaginal Bleeding Stated complaint: Vaginal Bleeding/Cramping Time Seen by Provider: 04/04/20 21:08 Source: patient Mode of arrival: ambulatory Limitations: no limitations History of Present Illness HPI Narrative: A 29-year-old female comes into the emergency department tonight with complaints of pelvic pain, vaginal bleeding and stating that she is very sure she is having a miscarriage. Patient was seen here the other day, worked up and evaluated. She stated that her pain started earlier today along with a vaginal bleeding. She notes a quarter to larger sized clots along with what she thought may have been tissue. Related Data Home Medications Medication Instructions Recorded Confirmed 04/04/20 Allergies Allergy/AdvReac Type Severity Reaction Status Date / Time diphenhydramine AdvReac Hyperactive Verified 04/04/20 19:54 [From Carlos] Review of Systems Review of Systems: Narrative: CONSTITUTIONAL: Denies fever, chills, or sweats. EYES: Denies visual changes, redness, or discharge. ENT: Denies rhinorrhea, congestion, sore throat, or otalgia. CARDIOVASCULAR: Denies chest pain, palpitations, or edema. RESPIRATORY: Denies cough or dyspnea. GASTROINTESTINAL: Denies abdominal pain, nausea, vomiting, or diarrhea. GENITOURINARY: Endorses pelvic pain and vaginal bleeding. SKIN: Denies rash or itching. MUSCULOSKELETAL: Denies back pain, joint pain, or myalgia. NEUROLOGIC: Denies headache, numbness, dizziness, or weakness. PSYCHIATRIC: Denies anxiety or depression. [facility] Past Medical History Medical History (Updated 04/04/20 @ 22:30 by Frandy Strong DO) Achalasia Anxiety Bipolar 1 disorder Diabetes Family History Family History Mother Multiple sclerosis Hypertension Grandparent Parkinson disease Father Colon cancer Sibling Kidney stones Social History Social History Smoking status: Never smoker Substance use: never Gender identity (if verbalized by the patient): Female Spiritual care concerns: No Exam Narrative: Exam Narrative: GENERAL: Well-appearing, well-nourished, and in no acute distress. HEAD: Normocephalic, atraumatic. EYES: PERRLA and EOMI. ENT: Nares clear, no rhinorrhea or epistaxis. Mucous membranes moist. Oropharynx without tonsillar hypertrophy exudate or other lesions. Bilateral TMs pearly buckner nonbulging NECK: Supple. No adenopathy or masses. No carotid bruits or JVD CHEST: Clear to auscultation. No respiratory distress. No wheezes rales or rhonchi HEART: Regular rate and rhythm. No murmur heard. Normal peripheral pulses. ABDOMEN: Soft, nontender, nondistended, normal active bowel sounds. : (Chaperoned by Melissa LOPEZ) dilated os, cervical bleeding, small clots seen. EXTREMITIES: Normal range of motion. No edema. SKIN: Warm, dry, no rash. NEURO: No focal deficits. Alert and oriented x3. PSYCH: Normal mood and affect. Course Reevaluation(s) Reevaluation #1: Pelvic exam did confirm active miscarriage. Patient educated on symptomatic management. Time: 22:28 Vital Signs Vital signs: Vital Signs Temperature 36.4 C L 04/04/20 19:49 Pulse Rate 92 04/04/20 19:49 Respiratory Rate 18 04/04/20 19:49 Blood Pressure 173/90 H 04/04/20 19:49 Pulse Oximetry 100 04/04/20 19:49 Temperature 36.4 C L 04/04/20 19:49 Pulse Rate 92 04/04/20 19:49 Respiratory Rate 18 04/04/20 19:49 Blood Pressure 173/90 H 04/04/20 19:49 Pulse Oximetry 100 04/04/20 19:49 MDM - Female Genitourinary MDM Narrative Medical decision making narrative: A 29-year-old female in brief came in to the emergency department with complaints of pelvic pain and vaginal bleeding. It does appear unfortunately as the patient is actively miscarrying. hCG levels today compared to the other day are declining. She has
[2020-04-04] MEDS: IBUPROFEN 600 MG TABLET PO (22:29)
[2020-04-04] MEDS: oxyCODONE/ACETAMINOPHEN (*CRX) 5-325 MG TABLET 1 TABLET PO (22:29)
[2020-04-04 22:44] VITALS: BP 146/97; PULSE 87; RESP 16; TEMP 36.8; O2SAT 99
== END 2020-04-04 22:48 | disposition home or self-care (01) ==
PROVIDERS: Emergency Medicine; Emergency Provider Emergency Medicine; PCP Obstetrics & Gynecology
DX: O03.9 Complete or unspecified spontaneous abortion without complication (principal); E11.9 Type 2 diabetes mellitus without complications
CPT/HCPCS: 36415; 84702; 85025; 85461; 99284; A9270

== ENCOUNTER 2021-02-24 20:07 | Observation (INO) | payer OTHER, SELFPAY ==
[2021-02-24] VITALS (17 sets, daily range): BP systolic 140–156; BP diastolic 71–92; PULSE 86–98; TEMP 36.8; O2SAT 98–100; BMI 64.0
--- NOTE | 2021-02-24 22:00 | OBADM ---
This patient, Franca Buck, admitted to the OB room Labor/Delivery/Recovery 119 for observation. Patient/family oriented to hospital policies and general routines including ID bracelet, bed and alarms, visiting hours, pain management, procedures, bathroom and other care routines, personal items, smoking policy, room service/diet, and visiting hours. Patient/Family are encouraged to report perceived risks to care and to ask questions if they do not understand what they are told or what they should do.
--- NOTE | 2021-02-26 13:48 | PM.OBTRLD ---
OB - Triage/Final Diagnosis Visit Information Comments/Additional reasons for admission: I have assessed the risk for this patient, Franca Buck, and determined that she would benefit from observation care. Final Diagnosis (1) Uterine contractions: Code(s): O47.9 - False labor, unspecified Status: Acute
== END 2021-02-24 21:54 | disposition home or self-care (01) ==
PROVIDERS: Admitting Provider Obstetrics & Gynecology; Visit Provider Obstetrics & Gynecology
DX: O47.9 False labor, unspecified (principal); Z3A.00 Weeks of gestation of pregnancy not specified
CPT/HCPCS: G0378; G0379

== ENCOUNTER 2021-03-03 14:37 | Outpatient (CLI) | payer OTHER, SELFPAY ==
--- NOTE | 2021-03-03 | ECHO_ITS ---
Patient Info Name: Franca Galvan Age: 30 years : 1990 Gender: Female Ht: 62 in Wt: 330 lbs BSA: 2.67 m2 HR: 88 bpm BP: 173 / 96 mmHg Heart Rhythm: Sinus Rhythm Technical Quality: Fair Exam Date: 03/03/2021 3:34 PM Exam Location: [facility] Pulmonary Patient Status: Outpatient Admit Date: 03/03/2021 Staff Ordering Physician: Karen De La Torre Staff Technologist: Lety Fermin RDCS Attending Provider: Karen De La Torre Exam Type: CA echo doppler color flow Study Info Indications - sob 36 weeks gestational Complete two-dimensional, color flow and Doppler transthoracic echocardiogram is performed. Summary 1. Complete two-dimensional, color flow and Doppler transthoracic echocardiogram is performed. 2. Normal left ventricular size with mild concentric hypertrophy and good systolic function of all segments. Ejection fraction is 65-70%. No segmental wall motion abnormalities. Grade 2 diastolic dysfunction is present. 3. Left atrial chamber dimension is mildly enlarged. 4. There is mild mitral valve regurgitation. 5. Pulmonary pressure could not be evaluated well in this study because of lack of sufficient tricuspid regurgitant jet. 6. Normal sinus rhythm. 7. Elevated blood pressure, 173/96 mmHg. 8. Cannot exclude a small PFO noted by color flow. Consider a limited exam with a bubble study to re-evaluate, if clinically indicated. Left Ventricle Left ventricular chamber dimension is normal. Left ventricular systolic function is normal, estimated at 65-70%. There is mildly increased left ventricular wall thickness. Left ventricular septal wall motion is normal. The left ventricular diastolic function is grade II diastolic dysfunction. Right Ventricle Right ventricular chamber dimension is normal. Right ventricular systolic function is normal. Left Atria Left atrial chamber dimension is mildly enlarged. Right Atria Right atrial chamber dimension is normal. Aortic Valve The aortic valve is trileaflet. There is no aortic valve sclerosis. There is no aortic valve stenosis. There is no aortic valve regurgitation. Pulmonic Valve The pulmonic valve is normal. There is no pulmonic valve stenosis. There is no pulmonic regurgitation. Mitral Valve The mitral valve has normal leaflets. There is no mitral valve stenosis. There is mild mitral valve regurgitation. Tricuspid Valve The tricuspid valve leaflets are normal. There is no significant tricuspid valve stenosis. There is trace tricuspid valve regurgitation. No pulmonary hypertension, estimated pulmonary arterial systolic pressure is Empty. Pericardium/Pleural The pericardium appears normal. There is no pericardial effusion. Inferior Vena Cava Normal inferior vena cava with >50% collapse upon inspiration consistent with Empty right atrial pressure, Empty. Aorta The aortic root size at the sinus of Valsalva is normal. The prox ascending aorta size is normal. Left Ventricular Outflow Tract Name Value Normal LVOT 2D LVOT Diameter 2.0 cm LVOT Doppler LVOT Peak Gradient 10 mmHg
== END 2021-03-03 14:38 | disposition home or self-care (01) ==
LOC: ANHCARD 14:42
DX: R06.02 Shortness of breath (principal)
CPT/HCPCS: 93306

== ENCOUNTER 2021-03-07 08:26 | Outpatient (RCR) | payer OTHER, SELFPAY ==
[2021-02-07 10:25] VITALS: BP 147/91; PULSE 97
[2021-03-07 09:07] VITALS: BP 133/79; PULSE 90
== END 2021-05-08 23:59 | disposition home or self-care (01) ==
LOC: ANHOBOP 08:26
PROVIDERS: Visit Provider Obstetrics & Gynecology
DX: O24.419 Gestational diabetes mellitus in pregnancy, unspecified control (principal); O16.3 Unspecified maternal hypertension, third trimester; Z3A.32 32 weeks gestation of pregnancy; Z3A.36 36 weeks gestation of pregnancy
CPT/HCPCS: 59025

== ENCOUNTER 2021-10-03 16:04 | Emergency (ER) | payer OTHER, SELFPAY ==
[2021-10-03 16:11] VITALS: BP 140/103; PULSE 103; RESP 18; TEMP 37.1; O2SAT 99
[2021-10-03 16:19] VITALS: BP 140/103; PULSE 103; RESP 18; TEMP 37.1; O2SAT 99
--- NOTE | 2021-10-03 16:22 | ED.LOWEXIN ---
HPI - Extremity Injury (Lower) General Chief Complaint: Extremity Injury, Lower Stated Complaint: Left Knee Pain Time Seen by Provider: 10/03/21 16:15 Source: patient and RN notes reviewed History of Present Illness HPI Narrative: Patient is a 30-year-old female who presents the urgent care with complaints of left knee pain radiating down the left calf. Patient states that started on Wednesday without any injury or trauma. Denies any shortness of breath or chest pain. Patient states that she has taken Tylenol for the pain without any relief. No other acute complaints. Denies of history of DVT. No acute distress noted. Patient aware of the plan of care. Some parts of this dictation were generated by voice recognition software and may contain typographical and/or grammatical inaccuracies. Related Data Home Medications Medication Instructions Recorded Confirmed amlodipine 10 mg tablet 10 mg PO DAILY 09/17/21 10/03/21 Allergies Allergy/AdvReac Type Severity Reaction Status Date / Time diphenhydramine AdvReac Hyperactive Verified 10/03/21 16:19 [From Carlos] Review of Systems Review of Systems: CONSTITUTIONAL: Denies fever, chills, or sweats. EYES: Denies visual changes, redness, or discharge. ENT: Denies rhinorrhea, congestion, sore throat, or otalgia. CARDIOVASCULAR: Denies chest pain, palpitations, or edema. RESPIRATORY: Denies cough or dyspnea. GASTROINTESTINAL: Denies abdominal pain, nausea, vomiting, or diarrhea. GENITOURINARY: Denies dysuria or hematuria. SKIN: Denies rash or itching. MUSCULOSKELETAL: Reports of left knee pain radiating to the left lower leg NEUROLOGIC: Denies headache, numbness, or weakness. All other systems reviewed are negative, except as documented in HPI. [facility] Past Medical History Medical History Achalasia Anxiety Bipolar 1 disorder Depression Diabetes Gestational diabetes mellitus Gestational [-induced] hypertension without significant proteinuria, complicating childbirth History of PCOS Surgical History Surgical History History of appendectomy History of 06/21/19 03/10/21 History of esophageal hernia repair (~2012) Family History Family History Mother Multiple sclerosis Hypertension Malignant neoplasm of uterus Grandparent Parkinson disease Father Colon cancer Sibling Kidney stones Social History Social History Smoking status: Never smoker Alcohol intake: never Substance use: never Substance use type: does not use Additional living arrangements comments: 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 There is no relevant family history pertinent to the patient complaint. Exam Narrative: GENERAL: This is a well-nourished, well-developed patient, in no apparent distress. HEAD: normocephalic, atraumatic. EYES: PERRL. Sclera clear/white. Vision is grossly intact. EARS: External ears normal NOSE: External nose normal with no obvious nasal discharge, nares without redness, no rhinorrhea. THROAT: Mucous membranes moist NECK: Neck supple CARDIOVASCULAR: Regular rate and rhythm without murmurs, gallops, or rubs. RESPIRATORY: Clear to auscultation. Breath sounds equal bilaterally. No wheezes, rales, or rhonchi. SKIN: warm, intact with no suspicious lesions or rash, good texture and turgor. NEURO: awake, alert, and oriented to person, place and time. There were no obvious focal neurologic abnormaliti
== END 2021-10-03 16:50 | disposition short-term general hospital (02) ==
PROVIDERS: Emergency Provider Nurse Practitioner Family
DX: M25.562 Pain in left knee (principal); M79.662 Pain in left lower leg; E28.2 Polycystic ovarian syndrome
CPT/HCPCS: 99213; G0463

== ENCOUNTER 2021-12-04 01:04 | Day surgery (SDC) | payer OTHER, SELFPAY ==
[2021-11-27 14:15] VITALS: BMI 58.6
--- NOTE | 2021-11-27 14:34 | SUR.PREOP ---
Report to the Outpatient Waiting Room, entrance under the green pavilion located off [facility], at time 0800 on date 12/04/2021. OR Time: 1000. Time changes happen often and if your time is changed the preop area will call you the afternoon before. - You and your visitor will be asked to self-screen and do not enter if you have any COVID symptoms. - Only one visitor and NO children visitors are allowed at this time. - The patient visitor is requested to leave or wait in car when not with patient due to restrictions. - A mask is required within the hospital. Patients may have clear liquids (water, carbonated beverages, clear teas, apple juice) until 3 hours prior to surgery (0700) with a maximum of 20 ounces. - No food from midnight until time of surgery - Infants may have breast milk until 4 hours before surgery, infant formula 6 hours prior to surgery. - Children will be allowed to drink immediately following surgery. If applicable, please bring a bottle or sippy cup to assist with drinking. Juice, water, soda, and popsicles are readily available. For infants on formula, please bring formula the day of surgery. Pacifiers are allowed. Take the following medications with a SIP of water the morning of surgery: N/A Medications to discontinue per physician N/A Date to take last dose N/A Please no make-up, nail welsh, hairspray, perfume, deodorant, or body powder the day of surgery. No jewelry (including any body piercings) or valuables the day of surgery, leave them at home. Please take a shower or bath the night before, or the morning of, surgery with an antibacterial soap. Wear comfortable, loose fitting clothing. Children are encouraged to wear pajamas. - Jewelry must be removed prior to entering the operating room. Rings and piercings that are not removed may be cut off. - The hospital will not accept responsibility for valuables. - Please leave all valuables, including medications, at home the day of surgery. If you are going home after surgery, a licensed security patrol driver must drive you home. - NO public transportation without another adult. - We recommend that an adult stay with you for 24 hours following discharge. - We also recommend that you do not drive, make important decision, drink alcoholic beverages, or take any drugs that were not prescribed by your health care provider for at least 24 hours after your discharge time. For Pediatric surgeries, we recommend two adults accompany the child home (only one inside the building at this time). Follow any additional instructions given to you from your surgeon. If you or anyone in your household have experienced Covid symptoms in the past week, please notify your surgeon or the nurse liaison at the phone number below for possible testing. Telephone instructions given to patient and asked if any additional questions and then verbalized understanding. Patient advised to call surgeon office or pre surgery nurse liaison [phone] if any additional questions.
--- NOTE | 2021-12-03 16:27 | PM.IMHP ---
H&P: HPI History of Present Illness Date/Time: 12/03/21 16:27 31-year-old female presents for evaluation of heavy vaginal bleeding as well as abnormality on ultrasound. Cycles lasting 5-7 days with 3-5 days very heavy clotting cramping. Ultrasound revealed thickened endometrial cavity a 15mm, which will proceed with evaluation tissue sample. Eventually with like to proceed with endometrial ablation and tubal ligation but this will be scheduled in the future. Chief Complaint: Menometrorrhagia PMFSH Past Medical History Medical History Achalasia Anxiety Bipolar 1 disorder Depression Diabetes Gestational diabetes mellitus Gestational [-induced] hypertension without significant proteinuria, complicating childbirth History of PCOS Surgical History Surgical History History of appendectomy History of 06/21/19 03/10/21 History of esophageal hernia repair (~2012) Family History Family History Mother Multiple sclerosis Hypertension Malignant neoplasm of uterus Grandparent Parkinson disease Father Colon cancer Sibling Kidney stones Social History Social History Years smoked: 2 Smoking status: Current every day smoker Tobacco type: e-cigarettes/vaping Alcohol intake: current Alcohol use details: Very rarely Substance use: never Substance use type: does not use Living arrangements: with family Additional living arrangements comments: 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 Gender identity (if verbalized by the patient): Female Sexual Orientation (if Verbalized by the Patient): Straight or Heterosexual Spiritual care concerns: No Meds Home Medications and Allergies Home Medications Medication Instructions Recorded Confirmed Type amlodipine 10 mg tablet 10 mg PO DAILY 09/17/21 11/27/21 History aripiprazole 5 mg tablet 5 mg PO USEASDIRECTD 11/27/21 11/27/21 History Allergies Allergy/AdvReac Type Severity Reaction Status Date / Time latex Allergy Intermediate Rash Verified 11/27/21 14:13 diphenhydramine AdvReac Mild Hyperactive Verified 11/27/21 14:13 [From Benadryl] Exam Const: General: cooperative, healthy appearing and comfortable Resp: Effort & Inspection: normal respiratory effort Auscultation: clear to auscultation bilaterally Cardio: Rate: regular rate Rhythm: regular rhythm GI: Inspection: normal to inspection Auscultation: normal bowel sounds : External Female Exam: normal external appearance Speculum Exam - Vagina: normal appearance of the vagina Speculum Exam - Cervix: normal appearance of the cervix Bimanual exam- vagina & uterus: enlarged Bimanual Exam- Adnexa, other: normal adnexae Assessment and Plan Assessment and plan (1) Menometrorrhagia: Code(s): N92.1 - Excessive and frequent menstruation with irregular cycle Status: Acute (2) Endometrial thickening on ultrasound: Code(s): R93.89 - Abnormal findings on diagnostic imaging of other specified body structures Status: Acute Plan proceed with hysteroscopy with uterine curettings for tissue sample.
[2021-12-04] VITALS (9 sets, daily range): BP systolic 125–146; BP diastolic 74–94; PULSE 75–93; RESP 13–20; TEMP 37.1–37.2; O2SAT 96–100
--- NOTE | 2021-12-04 08:54 | WPDHPUPDATE1 ---
History and Physical Update Update Date/Time: 12/04/21 08:54 History and Physical has been reviewed, including an updated exam of the patient. There are NO changes in the patient's condition. Risks, benefits, and alternatives have been discussed and questions answered. Patient agrees to proceed with procedure.
[2021-12-04] MEDS: ACETAMINOPHEN 500 MG TABLET 1000 MG PO (08:57)
--- NOTE | 2021-12-04 09:45 | WPDANESEPPF ---
Anes - Initial Pre Proc Eval Procedure: Operation Date: 12/04/21 10:30 Proposed Procedures p Hysteroscopy with Dilation and Curettage - Shyam Espinal MD Date/Time: 12/04/21 09:45 Surgeon: Shyam Espinal MD Pre Op Diagnosis: Endometrial Hyperplasia Patient Data Age: 31 Gender: F Height: 1.57 m Weight: 146.4 kg Last Vital Signs Temp 37.1 C 12/04/21 09:19 Pulse 93 12/04/21 09:19 Resp 18 12/04/21 09:19 BP 129/74 12/04/21 09:19 Pulse Ox 99 12/04/21 09:19 O2 Del Method Room Air 12/04/21 09:19 Allergies Allergy/AdvReac Type Severity Reaction Status Date / Time latex Allergy Intermediate Rash Verified 12/04/21 09:00 diphenhydramine AdvReac Mild Hyperactive Verified 12/04/21 09:00 [facility] Home Medications Medication Instructions Recorded Confirmed Type amlodipine 10 mg tablet 10 mg PO DAILY 09/17/21 12/04/21 History aripiprazole 5 mg tablet 5 mg PO USEASDIRECTD 11/27/21 12/04/21 History tamsulosin 0.4 mg capsule (Flomax) 0.4 mg PO DAILY 12/04/21 12/04/21 History Patient hx anesthesia problems: none Family hx anesthesia problems: none Results Review: All pre-operative results and documents have been reviewed as part of the pre-operative evaluation. [facility] Past Medical History Medical History Achalasia Anxiety Bipolar 1 disorder Depression Diabetes Gestational diabetes mellitus Gestational [-induced] hypertension without significant proteinuria, complicating childbirth History of PCOS Surgical History Surgical History History of appendectomy History of 06/21/19 03/10/21 History of esophageal hernia repair (~2012) Family History Family History Mother Multiple sclerosis Hypertension Malignant neoplasm of uterus Grandparent Parkinson disease Father Colon cancer Sibling Kidney stones Social History Social History Years smoked: 2 Smoking status: Current every day smoker Tobacco type: e-cigarettes/vaping Alcohol intake: current Alcohol use details: Very rarely Substance use: never Substance use type: does not use Living arrangements: with family Additional living arrangements comments: 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 Gender identity (if verbalized by the patient): Female Sexual Orientation (if Verbalized by the Patient): Straight or Heterosexual Spiritual care concerns: No Anes - Eval Final PreProcedure Day of Procedure 12/04/21 09:45 Patient weight: super morbidly obese Heart: regular rate and rhythm Lungs: clear to auscultation Airway: Mallampati scale class III Neurological: alert and oriented Last oral intake: >/= 8 hours Anesthetic plan: proceed Anesthesia type and monitoring: general LMA Results Review: All pre-operative results and documents have been reviewed as part of the pre-operative evaluation. Informed Consent: The patient's anesthetic plan and its attendant risks and benefits were discussed with the patient/family/POA. Questions were solicited and answers provided to the satisfaction of the patient/family/POA.
[2021-12-04] MEDS: LACTATED RINGERS 1,000 ML 30 ML IV CONT (09:57)
--- NOTE | 2021-12-04 10:52 | W.PM.PROC2 ---
Procedure Note - Detailed Date of Procedure 12/04/21 Pre-op Diagnosis Endometrial Hyperplasia Post-op Diagnosis Same Procedure Performed 1. Hysteroscopy with uterine curettings Surgeon Shyam Espinal MD Anesthesia MAC Findings Hypervascularity polypoid appearing endometrial cavity tissue. Description of Procedure Patient prepped drains manner for this procedure. Cervix was dilated to allow the hysteroscope placed. Findings were noted as above with hypervascular the anterior wall as well as polypoid appearing lesions on posterior wall. Curettings were obtained with a moderate amount of tissue removed. Patient tolerated the procedure well and was sent to the recovery in stable condition. Estimated Blood Loss 20 Drains No Packing No Pathology Yes Complications No immediate complications Condition Stable Disposition PACU [facility] Billing Surgery - Charge Forward: Surgery Billing
[2021-12-04] MEDS: fentaNYL CITRATE INJ (*CRX) 100 MCG/2 ML VIAL 25 MCG IV PUSH (11:09)
== END 2021-12-04 12:52 | disposition home or self-care (01) ==
PROVIDERS: Visit Provider Obstetrics & Gynecology
PROC: 0U5B8ZZ Destruction of Endometrium, Via Natural or Artificial Opening Endoscopic (ICD-10-PCS; CPT 58563; principal; 2021-12-04 10:30)
DX: N92.1 Excessive and frequent menstruation with irregular cycle (principal); F31.9 Bipolar disorder, unspecified; F41.9 Anxiety disorder, unspecified; E11.9 Type 2 diabetes mellitus without complications; F17.290 Nicotine dependence, other tobacco product, uncomplicated; E66.01 Morbid (severe) obesity due to excess calories; Z68.43 Body mass index [BMI] 50.0-59.9, adult
CPT/HCPCS: 58558; 88305; A9270; J1100; J2250; J2405; J2704; J3010; J7120

== ENCOUNTER 2021-12-19 09:20 | Outpatient (CLI) | payer OTHER, SELFPAY ==
--- NOTE | 2021-12-19 09:32 | ECG_ITS ---
Measurements Intervals [place] Rate: 89 P: 31 NC: 162 QRS: 14 QRSD: 94 T: 45 QT: 369 QTc: 449 Interpretive Statements SINUS RHYTHM FOR R-WAVE PROGRESSION OTHERWISE UNREMARKABLE ECG NO PREVIOUS ECG AVAILABLE FOR COMPARISON Electronically Signed On 12-19-2021 13:45:14 CDT by Gucci Wayne M.D.
== END 2021-12-19 09:21 | disposition home or self-care (01) ==
LOC: ANHSURGERY 09:26
PROVIDERS: Visit Provider Obstetrics & Gynecology
DX: Z01.810 Encounter for preprocedural cardiovascular examination (principal); I10 Essential (primary) hypertension
CPT/HCPCS: 93005

== ENCOUNTER 2021-12-25 03:05 | Day surgery (SDC) | payer OTHER, SELFPAY ==
[2021-12-15 14:57] VITALS: BMI 59.6
--- NOTE | 2021-12-15 15:32 | PC.NURSE ---
Report to the Outpatient Waiting Room, entrance under the green pavilion located off [facility], at time _0700_ on date 12/15/21. OR Time: _0900__. Time changes happen often and if your time is changed the preop area will call you the afternoon before. - You and your visitor will be asked to self-screen and do not enter if you have any COVID symptoms. - Only one visitor and NO children visitors are allowed at this time. - The patient visitor is requested to leave or wait in car when not with patient due to restrictions. - A mask is required within the hospital. Patients may have clear liquids (water, carbonated beverages, clear teas, apple juice) until 3 hours prior to surgery with a maximum of 20 ounces. - No food from midnight until time of surgery - Take the following medications with a SIP of water the morning of surgery: _AMLODIPINE Medications to discontinue per physician N/A Date to take last dose Please no make-up, nail slovenian, hairspray, perfume, deodorant, or body powder the day of surgery. No jewelry (including any body piercings) or valuables the day of surgery, leave them at home. Please take a shower or bath the night before, or the morning of, surgery with an antibacterial soap. Wear comfortable, loose fitting clothing. - Jewelry must be removed prior to entering the operating room. Rings and piercings that are not removed may be cut off. - The hospital will not accept responsibility for valuables. - Please leave all valuables, including medications, at home the day of surgery. If you are going home after surgery, a licensed escort car driver must drive you home. - NO public transportation without another adult. - We recommend that an adult stay with you for 24 hours following discharge. - We also recommend that you do not drive, make important decision, drink alcoholic beverages, or take any drugs that were not prescribed by your health care provider for at least 24 hours after your discharge time. Follow any additional instructions given to you from your surgeon. If you or anyone in your household have experienced Covid symptoms in the past week, please notify your surgeon or the nurse liaison at the phone number below for possible testing. Telephone instructions given to __TASHA and asked if any additional questions and then verbalized understanding. Patient advised to call surgeon office or pre surgery nurse liaison [phone] if any additional questions.
--- NOTE | 2021-12-24 13:36 | WPDHPUPDATE1 ---
History and Physical Update Update Date/Time: 12/24/21 13:36 31-year-old female presents for endometrial ablation and tubal ligation. Was seen 3 weeks ago for hysteroscope D and C which revealed benign tissue. Today treatment of her menometrorrhagia in the form of endometrial ablation, as well as tubal ligation via electrocautery for sterilization. no change in physical exam and no other significant changes noted other than the pathology report noted from her procedure 3 weeks ago. History and Physical has been reviewed, including an updated exam of the patient. There are NO changes in the patient's condition. Risks, benefits, and alternatives have been discussed and questions answered. Patient agrees to proceed with procedure.
[2021-12-25] VITALS (8 sets, daily range): BP systolic 132–149; BP diastolic 82–97; PULSE 85–94; RESP 12–20; TEMP 37.1–37.7; O2SAT 98–100
[2021-12-25] MEDS: LACTATED RINGERS 1,000 ML 30 ML IV CONT ×2 (07:10→09:22)
--- NOTE | 2021-12-25 07:26 | P.HPUP_ITS ---
History and Physical Update Update Date/Time: 12/25/21 07:26 As per 12 24 update we will be proceeding with endometrial ablation with hysteroscopic exam as well as bilateral tubal ligation via electrocautery. History and Physical has been reviewed, including an updated exam of the maria eugenia ent. There are NO changes in the patient's condition. Risks, benefits, and alternatives have been discussed and questions answered. Patient agrees to proceed with procedure.
[2021-12-25] MEDS: ACETAMINOPHEN 500 MG TABLET 1000 MG PO (07:30)
--- NOTE | 2021-12-25 07:31 | P.PNAN_ITS ---
Anes - Initial Pre Proc Eval Procedure: Operation Date: 12/25/21 08:30 Proposed Procedures p Hysteroscopy, [place] Endometrial Ablation, Bilateral Laparoscopic Tubal Ligation - Shyam Espinal MD Date/Time: 12/25/21 07:31 Surgeon: Shyam Espinal MD Pre Op Diagnosis: Menometrorrhagia, Desire Sterilization Patient Data Age: 31 Gender: F Height: 1.57 m Weight: 148 kg Allergies Allergy/AdvReac Type Severity Reaction Status Date / Time latex Allergy Intermediate Rash Verified 12/04/21 09:00 diphenhydramine AdvReac Mild Hyperactive Verified 12/04/21 09:00 [From Benadryl] Home Medications Medication Instructions Recorded Confirmed Type amlodipine 10 mg tablet 10 mg PO DAILY 09/17/21 12/15/21 History aripiprazole 5 mg tablet 10 mg PO USEASDIRECTD 11/27/21 12/15/21 History Patient hx anesthesia problems: none Family hx anesthesia problems: none Results Review: All pre-operative results and documents have been reviewed as part of the pre- operative evaluation. [facility] Past Medical History Medical History Achalasia Anxiety Bipolar 1 disorder Depression Diabetes Gestational diabetes mellitus Gestational [-induced] hypertension without significant proteinuria, complicating childbirth History of PCOS Surgical History Surgical History History of appendectomy History of 06/21/19 03/10/21 History of esophageal hernia repair (~2012) History of hysteroscopy (12/04/21) Hscope D&C Family History Family History Mother Multiple sclerosis Hypertension Malignant neoplasm of uterus Grandparent Parkinson disease Father Colon cancer Sibling Kidney stones Social History Social History Years smoked: 2 Smoking status: Current some day smoker Tobacco type: e-cigarettes/vaping Alcohol intake: current Alcohol use details: Very rarely Substance use: never Substance use type: does not use Living arrangements: with family Additional living arrangements comments: 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 Gender identity (if verbalized by the patient): Female Sexual Orientation (if Verbalized by the Patient): Straight or Heterosexual Spiritual care concerns: No Anes - Eval Final PreProcedure Day of Procedure 12/25/21 07:31 Patient weight: super morbidly obese Heart: regular rate and rhythm Lungs: clear to auscultation Airway: Mallampati scale class III Neurological: alert and oriented ASA classification: III Emergent: no Anesthetic plan: proceed Anesthesia type and monitoring: general ETT and standard monitoring Results Review: All pre-operative results and documents have been reviewed as part of the pre-operative evaluation. Informed Consent: The patient's anesthetic plan and its attendant risks and benefits were discussed with the patient/family/POA. Questions were solicited and answers provided to the satisfaction of the patient/family/POA.
[2021-12-25] MEDS: KETOROLAC 15 MG/ML VIAL (*BKC) IV PUSH (07:45)
[2021-12-25] MEDS: fentaNYL CITRATE INJ (*CRX) 100 MCG/2 ML VIAL 25 MCG IV PUSH ×4 (09:45→10:05)
--- NOTE | 2021-12-25 10:09 | W.PM.PROC2 ---
Procedure Note - Detailed Date of Procedure 12/25/21 Pre-op Diagnosis Menometrorrhagia, Desire Sterilization Post-op Diagnosis Same Procedure Performed 1. Laparoscopic bilateral tubal ligation via electrocautery 2. Hysteroscopy with endometrial ablation Surgeon Shyam Espinal MD Anesthesia General Findings 1. Endometrial cavity without abnormality 2. Uterus tubes ovaries without abnormality other than small adhesions of the uterus to the anterior abdominal wall Description of Procedure Patient was prepped in usual manner for this procedure and cervical instruments placed for uterine mobility throughout the case. Abdominal trocar sites were placed under direct visualization and the patient was placed in Trendelenburg position. Using electrocautery on both tubes in 3 places the tubes were cauterized. Care was taken to not come into contact with normal adjacent tissue during the cautery process. Gas was allowed to escape trocars removed incisions approximated using 4-0 Monocryl. Cervix was then dilated to allow the hysteroscope to be placed and after evaluation of the cavity the endometrial ablation instrument was placed as well. Cavity assessment was performed and the instrument was activated. At the end the procedure destruction was noted throughout the endometrial cavity. At this point the patient was sent to recovery room in stable condition. Estimated Blood Loss 20 Drains No Packing No Pathology None sent Complications No immediate complications Condition Stable Disposition PACU [facility] Billing Surgery - Charge Forward: Surgery Billing
[2021-12-25] MEDS: oxyCODONE HCL (*CRX) 5 MG TAB IR PO (10:52)
== END 2021-12-25 11:40 | disposition home or self-care (01) ==
PROVIDERS: Visit Provider Obstetrics & Gynecology
PROC: 0UDB8ZZ Extraction of Endometrium, Via Natural or Artificial Opening Endoscopic (ICD-10-PCS; CPT 58558; principal; 2021-12-25 08:30)
DX: N92.1 Excessive and frequent menstruation with irregular cycle (principal); Z30.2 Encounter for sterilization; N73.6 Female pelvic peritoneal adhesions (postinfective); F31.9 Bipolar disorder, unspecified; F17.290 Nicotine dependence, other tobacco product, uncomplicated; E66.01 Morbid (severe) obesity due to excess calories; Z68.44 Body mass index [BMI] 60.0-69.9, adult
CPT/HCPCS: 58670; 58563; A9270; J0330; J1100; J1885; J2250; J2405; J2704; J3010; J7120

== ENCOUNTER 2024-08-05 11:14 | Outpatient (CLI) | payer OTHER, SELFPAY ==
--- OUTSIDE RECORDS SUMMARY | 2024-08-05 11:17 | XMS_ITS | Referral Summary ---
Author Organization [facility] Address [address] [place] [address] Care Team Providers Care Fuel Verification Technician Name Role Phone Jyothi Villegas DO Unavailable No, Physician Primary Care Provider [phone] Encounters Date Type Department Care Team Description 05/10/2024 9:15 AM DIRECTOR TRADE Office Visit [facility] [address] [place] [address] Zenobia Guerrero, KAREN Acute bacterial sinusitis (Primary Dx); Non-recurrent acute suppurative otitis media of right ear without spontaneous rupture of tympanic membrane; Acute swimmer's ear of right side; Bronchitis from Last 3 Months Allergies Active Allergy Reactions Criticality Noted Date Comments Diphenhydramine Agitation,Rash,Unknown Medium 04/16/19 13 hyperactivity Hyperactivity, pt st. hyperactivity Hyperactivity, pt st. hyperactivity Hyperactivity, pt st. Latex Rash Medium 12/17/2017 Medications 25/iron fum/folic/dha (-1 ORAL) Take by mouth Active aspirin 81 mg enteric coated tablet Take 81 mg by mouth 2 (two) times a day Active OneTouch Verio strip U TO TEST D UTD 0 Active Dexcom G6 Sensor device CHANGE SENSOR EVERY 10 DAYS DIRECTED 1 Active labetaloL (NORMODYNE,GIRON DATE) 300 mg tablet Take 300 mg by mouth 3 (three) times a day 1 Active metFORMIN XR (GLUCOPHAGE XR) 500 mg 24 hr tablet Take 500 mg by mouth 2 (two) times a day 1 Active HumaLOG 100 unit/mL pen for injectionIndica tions:Gestation al Diabetes Mellitus 34 units with breakfast 44 units with lunch 68 units with dinner 1 Active HumuLIN N 100 unit/mL (3 mL) pen for injection 34 units in the morning 30 units at noon 88 units at bedtime 1 Active Ferrex 150 150 mg iron capsule 1 Active ARIPiprazole (Abilify) 20 mg tablet Take 1 tablet (20 mg total) by mouth daily Active atorvastatin (LIPITOR) 10 mg tablet Take 1 tablet (10 mg total) by mouth daily 4 Active buPROPion XL (WELLBUTRIN XL) 300 mg 24 hr tablet Take 1 tablet (300 mg total) by mouth daily 5 Active ketoconazole (NIZORAL) 2 % cream Apply topically daily 3 Active Vyvanse 70 mg capsule Take 1 capsule (70 mg total) by mouth every morning Active lisinopriL (PRINIVIL,ZESTR IL) 20 mg tablet Take 1 tablet (20 mg total) by mouth daily 4 Active naltrexone (DEPADE) 50 mg tablet Take 1 tablet (50 mg total) by mouth daily 5 Active triamcinolone (KENALOG) 0.1 % cream Apply topically as needed 3 Active Victoza 2-Neil 0.6 mg/0.1 mL (18 mg/3 mL) injection Inject 0.6 mg under the skin daily 5 05/16/19 26 Active albuterol HFA (PROVENTIL HFA,VENTOLIN HFA,PROAIR HFA) 90 mcg/actuation inhalerIndicati ons:Bronchitis Inhale 2 puffs every 4 (four) hours as needed for wheezing or shortness of breath (cough) 18 g 5 Active inhalational spacing device (Aerochamber MV) spacerIndicatio ns:Bronchitis Use with albuterol inhaler 1 each 5 Active Active Problems Problem Noted Date Diagnosed Date Gestational diabetes mellitus (GDM) in third [facility] [place] 05/05/2019 Overview (05/05/2019): Recently diagnosed via abnormal 3 hour Fastings adequately controlled and 1 hours adequately controlled Will give logs so she can email to use SmartMove Currently diet controlled only Binge eating disorder 04/07/2019 Overview (05/05/2019): Has a history of binge eating disorder, now with 40 lbs weight gain since beginning of Established with psychiatry, planning to see in next week to evaluate for therapeutic options Mood good Antepartum excessive growth 04/07/2019 Overview (05/05/2019): - 04/07: EFW 1505 g, 99%ile, AC 98%ile -05/05/2019 2654 grams >99%ile S/p counseling, aware of risk of primary CS if continued accelerated growth [ ] Growth US q 4 weeks Assessment & Plan (04/07/2019 12:04 PM DIRECTOR TRADE): We discussed that the current growth pattern is consistent with accelerated growth, and this is often seen with GDM. Ms. Galvan has an elevated 1 hr GTT and will be getting her 3 hr GTT early next week. We discussed a potential recommendation for primary CS if EFW near delivery is > 5000 g (no GDM) or >66856 g (with GDM). We discussed the risk of labor dystocia and shoulder dystocia with macrosomia. There is also a risk of metabolic abnormalities with accelerated growth. Supervision of high-risk , [facility] 04/04/2019 Overview (05/05/2019): [x] Co-management vs. [] Full [facility] Care; Referring Provider: Dr Villegas #[phone] [] Dating Criteria: [x] Labs: [12/06/2018]Rh O+ , Ab neg, Rubella Im , HIV neg , HepBSAg neg , RPR NR, GC/CT [not avail] [] Genetic Screening: [x] CBC/Hgb electrophoresis (if indicated) 12/06/2018 H/H 42.5/13.7, plat. 300 [] Early 1hr GTT (if indicated) HA1C 5.6% [12/06/2018] [] UCx [x] Pap: NILM 08/30/2017 [] LD ASA (if indicated) starting at 12 weeks [] EPDS ; PNBHS referral (if indicated) 2nd Tri Labs: [] Anatomy ultrasound [x] CBC/1hr gtt at 24-28wks: abnl 3 hour--GDM [] Flu Shot (Nov-Feb) [] Tdap (27-36wks) [] Rhogam at 28 wks (if Rh neg): 3rd Tri Labs: [] CBC/HIV/RPR/T&S [] GBS [] GC/CT (if indicated) Counselling [] MOD: [] Place of delivery: [] MOC: [] Method of feeding: [] Stringed Instrument Repairer: [] PP Depression Discussed, EPDS Possible cHTN 12/06/2018 Overview (04/07/2019): S/p MFM consult on 12/06/18 Normotensive today Baseline labs normal Suspect prior elevation may have been due to donta Will continue to monitor E-cigarettes/Vaping use 12/06/2018 Overview (05/05/2019): Previously conseled Has decreased significantly - as of 03/10/19 almost off and plans to quit by mid Bulmaro Encouraged cessation and congratulated her on decrease Obesity with body mass index 30 or greater 07/17 Overview (05/05/2019): Weight gain a little high so far Discussed today works two jobs and eats some fast food Discussed healthy choices but right now prioritizing mental health and stop vaping Continue to follow Normal A1C BMI 52 Total weight gain as of 04/07/19 ~40 lbs (pre- weight 243 lbs) [ ] Continue growth ultrasounds every 4 weeks --LGA grwoth [ ] Recommend NSTs starting at 32 weeks (discussed on 04/07)--started [ ] Can consider anesthesia consultation prior to delivery [ ] Recommend safety administrator visit (pt to schedule next week) [ ] Recommend meeting with psychiatrist re: binge eating disorder and excessive weight gain- options for therapy. Pt trying to get reestablished with psychiatrist Assessment & Plan (04/07/2019 11:53 AM DIRECTOR TRADE): We discussed that excessive weight gain and maternal obesity is associated with gestational diabetes, macrosomia, and intrapartum complications such as increased risk of section and dysfunctional labor. Further, hypertensive diseases in are more commonly diagnosed in obese women. Achalasia, esophageal 05/13/2016 Bipolar affective disorder 07/29/2013 Overview (05/05/2019): Previously counseled S/p use of Abilify and Vyvanse Restarted Abilify and doing much better. Lost insurance so has to find a new psychiatrist and new counselor which the patient is working on. Follow mood Will need close surveillance Polycystic ovaries 07/29/2013 Eczema 10/07/2011 Resolved Problems Problem Noted Date Diagnosed Date Resolved Date High risk due to s moking in first trimester 11/29/2018 12/06/2018 Overview (11/29/2018): [] Co-management vs. [] Full [facility] Care; Referring Provider: Jyothi Villegas [phone] [x] Dating Criteria: LMP 08/16/18 JOSÉ ANTONIO 05/23/19 [] Labs: Rh [O+], Ab [negative], Rubella [immune], HIV [negative], HepBSAg [negative], RPR [non-reactive], GC/CT [ ] [] Genetic Screening: [x] CBC/Hgb e14.0/43.4/plt 313 [] Early 1hr GTT (if indicated) [] UCx: [x] Pap: 08/30/17 negative [] LD ASA (if indicated) starting at 12 weeks: [] EPDS [ ]; PNBHS referral (if indicated) 2nd Tri Labs: [] Anatomy ultrasound: [] CBC/1hr gtt at 24-28wks: [] Flu Shot (Nov-Feb): [] Tdap (27-36wks): [] Rhogam at 28 wks (if Rh neg): 3rd Tri Labs: [] CBC/HIV/RPR/T&S: [] GBS: [] GC/CT (if indicated): Counselling [] MOD: [] Place of delivery: [] MOC: [] Method of feeding: [] Stringed Instrument Repairer: [] PP Depression Discussed: Achalasia of esophagus 05/27/201608/30 Immunizations Immunization Administration Dates Next Due Influenza, Split 12/20/2009 Influenza, Unspecified 11/28/2020 Social History Tobacco Use Types Packs/Day Years Used Date Smoking Tobacco: Never Cigarettes E-cigarettes Smokeless Tobacco: Current Tobacco Cessation:Ready to Q uit: No; Counseling Given: No Comments:e cig Alcohol Use Standard Drinks/Week Comments Not Currently 0 (1 standard drink = 0.6 oz pur e alcohol) AUDIT-C Answer Date Recorded Q1: How often do you have a drink containing alc ohol? 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 Not on file Not on yuli e Last Filed Vital Signs Vital Sign Reading Time Taken Comments Blood Pressure 134/86 05/10/2024 9:20 AM DIRECTOR TRADE Pulse 87 05/10/2024 9:20 AM DIRECTOR TRADE Temperature 36.4 C (97.6 F) 05/10/2024 9:20 AM DIRECTOR TRADE Respiratory Rate 18 05/10/2024 9:20 AM DIRECTOR TRADE Oxygen Saturation 98% 05/10/2024 9:20 AM DIRECTOR TRADE Inhaled Oxygen Concentration - - Weight 145.2 kg (320 lb) 05/10/2024 9:20 AM DIRECTOR TRADE Height 157.5 cm (5' 2 ) 05/10/2024 9:20 AM DIRECTOR TRADE Body Mass Index 58.53 05/10/2024 9:20 AM DIRECTOR TRADE Plan of Treatment Not on file Procedures Procedure Name Priority Date/Time Associated Diagnosis Comments EGFR STAT 10/03/2021 5:48 PM CDT HEMOGLOBIN A1C Routine 12/06/2018 2:40 PM CDT Obesity, unspecified classification, unspecified obesity type, unspecified whether serious comorbidity present Bipolar affective disorder, remission status unspecified (HCC) THINPREP IMAGING PAP REFLEX HPV MRNA E6/E7 Routine 08/30/2017 1:03 PM CDT from Last 3 Months or Most Recently Relevant to Health Maintenance Results * eGFR (10/03/2021 5:48 PM CDT) eGFR 123 mL/min/1. 73 m2 [facility] [place] Comment: Interpretive Data Reference Interval Normal >/= 90 mL/min/1.73m2 Mildly decreased* 60 - 89 mL/min/1.73m2 Mildly to moderately decreased 45 - 59 mL/min/1.73m2 Moderately to severely decreased 30 - 44 mL/min/1.73m2 Severely decreased 15 - 29 mL/min/1.73m2 Kidney Failure < 15 mL/min/1.73m2 *Relative to young adult level Estimated glomerular filtration rate is determined by the 2020 CKD-EPI equation recommended by the National Kidney Foundation (A Unifying Approach to GFR Estimation: Recommendations of the NKF-ASK Task Force on Reassessing the Inclusion of Race in Diagnosing Kidney Disease, JASN 2020). The CKD-EPI equation should not be used for patients with unstable renal function and has not been validated in children and those over 70. Current interpretive data was last reviewed 2021. Blood 10/03/2021 5:48 PM CDT 10/03/2021 5:51 PM CDT us Narcisa Diaz BOOKMOBILE CLERK LAB BLOOD ORDERABLES Final R esult [facility] 1 [facility] [place] [address] * Hemoglobin A1c (12/06/2018 2:40 PM CDT) Hgb A1C 5.6 4.0 - 5.6 % [facility] Estimated Average Glucose 114 mg/dL [facility] Comment: The ADA recommends reporting an estimated Average Glucose (eAG) with all Hemoglobin A1c results using the equation derived from a study of 507 normal and diabetic adults. Minority populations were underrepresented and children were not included. (Diabetes Care 31:9081-9454, 2008). The eAG is not equivalent to a fasting glucose. Blood specimen (specimen) 12/06/2018 2:40 PM CDT 12/06/2018 3:37 PM CDT us Ethan Gil MD LAB BLOOD ORDERABLES Final Result Performing Organization Address City/State/[facility] Co de Phone Number [facility] [address] [place] [address] * ThinPrep Imaging Pap Reflex HPV mRNA E6/E7 (08/30/2017 1:03 PM CDT) Report status [facility]CELED [facility] [place] Comment:Result canceled by t tali ancillary CLINICAL INFORMATION: [facility] [place] Comment:Routine exam LMP APR 2017 [facility] [place] Previous Pap NONE GIVEN [facility] Prev. Bx NONE GIVEN [facility] SOURCE: [facility] Comment:Cervix, Endocervix Pap, specimen adequacy [facility] [place] Comment: Satisfactory for evaluation. Endocervical/transformation zone component absent. Age and/or menstrual status not provided Pap, general categorization [facility]CELED [facility] [place] Comment:Result canceled by t tali ancillary HPV interp [facility] [place] Comment:Negative for intraep ithelial lesion or malignancy. Infection: CANCELED [facility] [place] Comment:Result canceled by t he ancillary COMMENTS [facility] [place] Comment: This Pap test has been evaluated with computer assisted technology. Spot Sprayer [facility] - Comment: MLO, CT(ASCP) CT screening location: [place] [address] [place] [address] Review brush cutter CANCELED [facility] [place] Comment:Result canceled by t tali ancillary Pathologist [facility]CELED [facility] [place] Comment:Result canceled by t he ancillary Comment [facility] [place] Comment: EXPLANATORY NOTE: The Pap is a screening test for cervical cancer. It is not a diagnostic test and is subject to false negative and false positive results. It is most reliable when a satisfactory sample, regularly obtained, is submitted with relevant clinical findings and history, and when the Pap result is evaluated along with historic and current clinical information. 08/30/2017 1:03 PM CDT 08/31/2017 5:23 AM CDT Narrative Resulting Agency Comment Performing Organization Information: Site ID: [place] Name: [facility] Address: [address] [place] [address] Director: Ibrahima Cook Addis Walker MD LAB PATHOLOGY ORDER ANILA Final Result [facility] [place] Kumar from Last 3 Months or Most Recently Relevant to Health Maintenance Insurance [facility] COUNT INCLUDES THE [facility] Advance Directives For more information, please contact: [phone] * Full Code (Latest Code Status on File) Date Activated Date Inactivated Comments 11/02/2018 11:38 AM 11/02/2018 5:16 PM * Full Code Date Activated Date Inactivated Comments 08/26/2017 11:12 AM 08/26/2017 3:04 PM Care Teams Fuel Verification Technician Relationship Specialty Start Date End Date No, Physician PCP - General 03/10/19 Jyothi Villegas DO [address] [facility] [id number] [place] [address] Referring Physician Obstetrics and Gynecology 11/09/18
--- OUTSIDE RECORDS SUMMARY | 2024-08-05 11:17 | XMS_ITS | Clinical Summary ---
Author Organization [facility] Address [address] [place] [address] Care Team Providers Care Ore Crushing Dust Collector Name Role Phone Jyothi Villegas DO Unavailable No, Physician Primary Care Provider [phone] Allergies Active Allergy Reactions Criticality Noted Date [...] Date Gestational diabetes mellitus (GDM) [facility] 05/05/2019 Overview (05/05/2019): Recently diagnosed via abnormal 3 hour Fastings adequately controlled and 1 hours adequately controlled Will give logs so she can email to use Webroot Currently diet controlled only Binge eating disorder [...] weeks Assessment & Plan (04/07/2019 12:04 PM NETWORK SUPPORT TECHNICIAN): We discussed that the current growth pattern is consistent with accelerated growth, and this is often seen with GDM. Ms. Galvan has an elevated 1 hr GTT and will be getting her 3 hr GTT early next week. We discussed a potential recommendation for primary CS if EFW near delivery is > 5000 g (no GDM) or >24259 g (with GDM). We discussed the risk of labor dystocia and shoulder dystocia with macrosomia. There is also a risk of metabolic abnormalities with accelerated growth. Supervision of high-risk , third [facility] ter 04/04/2019 Overview (05/05/2019): [x] Co-management vs. [] Full [facility] Care; Referring Provider: Dr Villegas #[phone] [] Dating Criteria: [x] Labs: [12/06/2018]Rh O+ [...] [] MOC: [] Method of feeding: [] Intake Clerk: [] PP Depression Discussed, EPDS Possible cHTN [...] consultation prior to delivery [ ] Recommend scrum coach visit (pt to schedule next week) [ ] Recommend meeting with psychiatrist re: binge eating disorder and excessive weight gain- options for therapy. Pt trying to get reestablished with psychiatrist Assessment & Plan (04/07/2019 11:53 AM NETWORK SUPPORT TECHNICIAN): We discussed that excessive weight gain and [...] Overview (11/29/2018): [] Co-management vs. [] Full [facility] Care; Referring Provider: Jyothi Villegas [phone] [x] Dating Criteria: LMP 08/16/18 JOSÉ ANTONIO [...] [] MOC: [] Method of feeding: [] Intake Clerk: [] PP Depression Discussed: Achalasia of esophagus 05/27/201608/30 Encounters Date Type Department Care Team Description 05/10/2024 9:15 AM NETWORK SUPPORT TECHNICIAN Office Visit [facility] [place] [address] [place] [address] Zenobia Guerrero, KAREN Acute bacterial sinusitis (Primary Dx); Non-recurrent acute suppurative otitis media of right ear without spontaneous rupture of tympanic membrane; Acute swimmer's ear of right side; Bronchitis from Last 3 Months Immunizations Immunization Administration Dates Next Due Influenza, Split 12/20/2009 Influenza, Unspecified 11/28/2020 Surgical History Surgery Date Site/Laterality Comments APPENDECTOMY 01/14/2012 - 02/12/2012 LAPAROSCOPIC HELLER MYOTOMY 06/13/2016 - 07/12/2016 LAPAROSCOPIC APPENDECTOMY 03/15/2011 - 03/14/2012 SECTION 2019 Medical History Medical History Date Comments Achalasia 2017 Eczema PCOS (polycystic ovarian syndrome) Seasonal allergies Anxiety and depression Bipolar disorder (HCC) Binge eating disorder GERD (gastroesophageal reflux disease) ADHD (attention deficit hyperactivity disorder) Diabetes mellitus (HCC) Chronic kidney disease Complication of anesthesia intra ctable nausea Hypertension gestational Abnormal Pap smear of cervix whe n 18 y.o. 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 Not on yuli e Obstetrics History Para Term AB IAB SAB Ectopic Multiple Livin g Live Births 3 1 1 0 1 0 0 0 0 1 1 Date Outcome GA Total Labor Labor/2nd/3rd Weight Sex Type Anes PTL Ame A1 A5 Name Clin Term AB Last Filed Vital Signs Vital Sign Reading Time Taken Comments Blood Pressure 134/86 05/10/2024 9:20 AM NETWORK SUPPORT TECHNICIAN Pulse 87 05/10/2024 9:20 AM NETWORK SUPPORT TECHNICIAN Temperature 36.4 C (97.6 F) 05/10/2024 9:20 AM NETWORK SUPPORT TECHNICIAN Respiratory Rate 18 05/10/2024 9:20 AM NETWORK SUPPORT TECHNICIAN Oxygen Saturation 98% 05/10/2024 9:20 AM NETWORK SUPPORT TECHNICIAN Inhaled Oxygen Concentration - - Weight 145.2 kg (320 lb) 05/10/2024 9:20 AM NETWORK SUPPORT TECHNICIAN Height 157.5 cm (5' 2 ) 05/10/2024 9:20 AM NETWORK SUPPORT TECHNICIAN Body Mass Index 58.53 05/10/2024 9:20 AM NETWORK SUPPORT TECHNICIAN Plan of Treatment Health Maintenance Due Date Last Done Comments Albumin Creatinine Ratio, Urine 1988 Hepatitis C Screening 1988 Dilated Eye Exam 1988 Foot Exam 1988 Lipid Panel 1988 Varicella Vaccines (1 of 2 - 13+ 2-dose series) 2001 Hepatitis B Screening 2006 Pneumococcal vaccine <65 (1 of 2 - PCV) 10/29/2007 Depression Screening 09/24/2017 09/24/2016, 08/26/19 17 Cervical Cancer Screening 08/30/20182017, 08/25/2016, 08/25/2016, Additional history exists Regular Well Visit/Exam 18-64 08/30/2018 08/30/2017, 08/25/2016 Hemoglobin A1C 09/11/2022 03/14/2022, 11/0 03/2020, 12/06/2018 eGFR 10/03/2022 10/03/2021, 02/25/2021 Influenza Vaccine (Season Ended) 2024 03/23/2023, 11/28/2020, 01/06/2019, Additional history exists DTaP/Tdap/Td Vaccine (3 - Td or Tdap) 02/28/2031 02/28/2021, 06/22/2019 HPV Vaccines Aged Out No longer eligi ble based on patient's age to complete this topic Procedures Procedure Name Priority Date/Time Associated Diagnosis [...] eGFR 123 mL/min/1. 73 m2 [facility] ([place]) Comment: Interpretive Data Reference Interval Normal >/= [...] 10/03/2021 5:51 PM CDT us Narcisa Diaz NP LAB BLOOD ORDERABLES Final R esult [facility] ([place]) 1 [facility] Department [place] [address] * Hemoglobin A1c (12/06/2018 2:40 [...] and children were not included. (Diabetes Care 31:2785-2975, 2008). The eAG is not equivalent to a fasting glucose. Blood specimen (specimen) 12/06/2018 2:40 PM CDT 12/06/2018 3:37 PM CDT Ethan Gil MD LAB BLOOD ORDERABLES Final Result [facility] [address] [facility] [place] [address] * ThinPrep Imaging Pap Reflex HPV mRNA [...] [facility] - [place] Comment:Result canceled by t ancillary COMMENTS [facility] [place] Comment: This Pap test has been evaluated with computer assisted technology. [place] [facility] - Comment: MLO, CT(ASCP) CT screening location: [place] [address] [place] [address] Review trim machine operator [facility]CELED [facility] [place] Comment:Result canceled by t tali ancillary Pathologist [facility] [place] Comment:Result canceled by t tali ancillary Comment [facility] [place] Comment: [...] Agency Comment Performing Organization Information: Site ID: Name: [facility] Address: [address] [place] [address] Director: Ibrahima Cook Addis Walker MD LAB PATHOLOGY ORDER ANILA Final Result [facility] [place] Kumar from Last 3 Months or Most Recently Relevant to Health Maintenance Insurance [facility] Advance Directives For more information, please contact: [phone] * Full Code (Latest Code Status on File) Date Activated Date Inactivated Comments 11/02/2018 11:38 AM 11/02/2018 5:16 PM * Full Code Date Activated Date Inactivated Comments 08/26/2017 11:12 AM 08/26/2017 3:04 PM Care Teams Ore Crushing Dust Collector Relationship Specialty Start Date End Date No, Physician PCP - General 03/10/19 Jyothi Villegas DO [address] [facility] [id number] [place] [address] Referring Physician Obstetrics and Gynecology 11/09/18
--- OUTSIDE RECORDS SUMMARY | 2024-08-05 11:17 | XMS_ITS | Clinical Summary ---
Author Organization 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,non-owned Affiliates and Associated Physician Practices is amultiple site organization consisting of ambulatory clinics and hospital sitesin [place], [place], [place] and [place]. This disclosure is being madepursuant to the Care Everywhere program and may not contain all information available regarding this patient. Last updated 17.[facility] Allergies Active Allergy Reactions Criticality Noted Date Comments Diphenhydramine Urticaria,Rash,Other ,Unk nown,Dizziness,Psychiatr ic Medium 04/16/2012 agitation Latex Rash Medium 12/17/2017 Dulaglutide Rash Medium 04/17/2024 injection site reaction Medications * This document contains information received from the source organization and may not represent a complete record from that organization. * Be aware that medications may not be up to date on this document. Alwaysverify current medications with the patient. Blood Pressure Monitoring (BLOOD PRESSURE CUFF) MISC Use 1 Units 2 times daily Use to check blood pressure at home twice daily. 1 Each 021 Active triamcinolone acetonide (Kenalog) 0.1 % creamIndications :Other eczema Apply to affected areas on trunk & extremities up to twice daily as needed. Avoid on face/armpits/geronimo in. Limit use to 2 weeks per month. 30 days supply. 454 g 5 023 Active ketoconazole (Nizoral) 2 % creamIndications :Intertrigo Apply to groin/abdomen twice daily until clear, then continue twice weekly as maintenance. 30 days supply. 60 g 5 023 Active Ferrous Gluconate (Ferate) 240 (27 Fe) MG tabletIndication s:Iron deficiency anemia, unspecified iron deficiency anemia type,Fatigue, unspecified type Take 2 (two) tablets by mouth once daily for 90 days 180 tablet 3 024 Active Additional Information Patient not taking.Reason: Patient adjusted, Reported on 07/18/2024 atorvastatin (Lipitor) 10 MG tabletIndication s:Type 2 diabetes mellitus without complication, unspecified whether alf insulin use (HCC) Take 1 (one) tablet by mouth once daily 100 tablet 4 024 Active lisinopril (Prinivil; Zestril) 20 MG tabletIndication s:Essential hypertension Take 1 (one) tablet by mouth once daily 100 tablet 4 024 Active buPROPion XL 24hr (Wellbutrin-XL) 300 MG tabletIndication s:Depression Take 1 (one) tablet by mouth once daily Reasons: Depression 30 tablet 3 025 Active TRUEplus 5-Bevel Pen [place] 31G X 6 MM MISC 1 (ONE) EACH BY INJECTION ROUTE ONCE DAILY 025 Active Semaglutide(0.25 or 0.5MG/DOS) 2 MG/3ML Solution Pen-injector (Ozempic (0.25 or 0.5 MG/DOSE))Indicat ions:Type 2 diabetes mellitus with stage 3 chronic kidney disease, without long-term current use of insulin, unspecified whether stage 3a or 3b CKD ([facility]) Inject 0.5 mg subcutaneously every 7 days 3 mL 5 025 Active Additional Information Patient not taking.Reason: Other, Reported on 07/18/2024 ARIPiprazole (Abilify) 10 MG tabletIndication s:Manic Phase of Bipolar Mood Disorder Take 1 (one) tablet by mouth once daily for 90 days Reasons: Manic Phase of Manic-Depression 90 tablet 025 2024 Active lisdexamfetamine (Vyvanse) 70 MG capsuleIndicatio ns:Attention Deficit Hyperactivity Disorder,Binge Eating Disorder Take 1 (one) capsule by mouth every morning Reasons: Attention Deficit Hyperactivity Disorder, Binge Eating Disorder 30 capsule 025 Active lisdexamfetamine (Vyvanse) 70 MG capsuleIndicatio ns:Attention Deficit Hyperactivity Disorder,Binge Eating Disorder Take 1 (one) capsule by mouth every morning Reasons: Attention Deficit Hyperactivity Disorder, Binge Eating Disorder 30 capsule 025 Active lisdexamfetamine (Vyvanse) 70 MG capsuleIndicatio ns:Attention Deficit Hyperactivity Disorder,Binge Eating Disorder Take 1 (one) capsule by mouth every morning Reasons: Attention Deficit Hyperactivity Disorder, Binge Eating Disorder 30 capsule 025 Active liraglutide (Victoza) 18 MG/3ML penIndications:T ype 2 diabetes mellitus with stage 3 chronic kidney disease, without long-term current use of insulin, unspecified whether stage 3a or 3b CKD (HCC) Inject 1.8 mg subcutaneously once daily for 30 days 9 mL 5 025 2024 Active ARIPiprazole (Abilify) 20 MG tabletIndication s:Manic Phase of Bipolar Mood Disorder Take 1 (one) tablet by mouth once daily Reasons: Manic Phase of Manic-Depression 60 tablet 1 025 2024 Discontinued naltrexone (Revia) 50 MG tablet Take 1 (one) tablet by mouth once daily 30 tablet 4 025 2024 Discontinued(L ist Clean-Up) liraglutide (Victoza) 18 MG/3ML penIndications:T ype 2 diabetes mellitus with stage 3 chronic kidney disease, without long-term current use of insulin, unspecified whether stage 3a or 3b CKD (HCC) Inject 0.6 mg subcutaneously once daily for 28 days, THEN 1.2 mg once daily. 9 mL 3 025 2024 Discontinued(L ist Clean-Up) lisdexamfetamine (Vyvanse) 70 MG capsuleIndicatio ns:Attention Deficit Hyperactivity Disorder,Binge Eating Disorder Take 1 (one) capsule by mouth every morning Reasons: Attention Deficit Hyperactivity Disorder, Binge Eating Disorder 30 capsule 025 2024 Discontinued Active Problems Patient Care Coordination No te Formatting of this note migh t be different from the original. [employer] form completed. Diapers given. 04/24/2021 Problem Noted Date Diagnosed Date Severe binge-eating disorder 03/31/2024 Secondary nephrogenic diabetes insipidus 024 Essential hypertension 12/14/2023 Leg edema 12/14/2023 Edema of both lower extremit ies due to peripheral venous insufficiency 03/23/2023 Tachycardia 03/23/2023 Shortness of breath 03/23/2023 Metabolic syndrome 02/10/2023 Type 2 diabetes mellitus wit h stage 3 chronic kidney disease, without long-term current use of insulin, unspecified whether stage 3a or 3b CKD 10/02/2022 Metabolic dysfunction-associ ated steatotic liver disease (MASLD) 03/06/2022 Overview (04/04/2024): 12/03/21 CT: severe steatosis 03/31/24 Fibroscan CAP 374, LSM 21.8 kPa Class 3 severe obesity with serious comorbidity and body mass index (BMI) of 40.0 to 44.9 in adult 03/06/2022 Prediabetes 03/06/2022 Kidney stones 03/06/2022 Other specified dermatitis 04/29/2021 Dyspnea 02/12/2021 Nonintractable headache 02/12/2021 Bipolar disorder 01/15/2021 ADHD 01/15/2021 Chronic hypertension affecting 021 Overview (12/04/2020): 24 hour urine: 247mg of protein, 11/15 CMP: creatinine: 0.57. AST: 19, ALT: 13. BUN: 10 11/28/20 labs: CMP: creatinine: 0.59, AST: 16, ALT: 13, BUN: 8 CBC: H/H/P 12.2/37.2/238 Assessment & Plan (01/29/2021 5:55 PM BEEF GRINDER): Recent 24 hour urine [Jan 2021] without macroproteinuria. No convincing signs of superimposed preeclampsia. Started on nifedipine within the last week. BP within goal on nifedipine 30 mg daily. Having new-onset headaches-likely side effect of nifedipine. Recommendations 1. magnesium for headache prevention--prescription provided 2. BP goal 130-154/70-94--no dose adjustment needed for nifedipine today 3. Monitor for the development of superimposed preeclampsia 1. serum laboratory criteria, persistent preeclampsia symptoms or severe uncontrolled hypertension is the preferred criteria for the diagnosis of superimposed preeclampsia, rather than mild gradual increases in blood pressure, in the 3rd trimester, with a need for medication adjustments 4. Twice weekly NST and weekly BPP 5. Delivery initiation at 39 weeks 6. Would benefit from Assessment & Plan (11/27/2020 4:20 PM CDT): 24 hour urine: 247mg of protein, 11/15 CMP: creatinine: 0.57. AST: 19, ALT: 13. BUN: 10, 11/08 Labile home blood pressure values with some severe range systolic values. Asymptomatic for preeclampsia. Home cuff assessed in our office too, and elevated value that was normal with manual evaluation. Objective criteria may need to be office values. Recommendations: Baseline 24 urine for total protein, CMP: completed. Should be seen by provider weekly at this juncture for blood pressure log review and assessment. Goal blood pressures <150/100, per Dr. Jean-Baptiste. Instructed to seek evaluation or call primary OB with elevated values, if >160/110, should seek evaluation. Discussed when we would add antihypertensive medications. Aspirin ( 162 mg) to be continued Serial growth every four weeks after 24 weeks Daily kick count starting at 28 weeks Weekly 10 point biophysical profile starting at 32 weeks Serum laboratory criteria, persistent preeclampsia symptoms or severe uncontrolled hypertension is the preferred criteria for the diagnosis of superimposed preeclampsia, rather than mild gradual increases in blood pressure, in the 3rd trimester, with a need for medication adjustments Delivery initiation at 39 weeks Would benefit from Pruritus 11/27/2020 Overview (12/11/2020): Bile acids: 7. 11/28 Dermatology appointment: 12/23 Assessment & Plan (11/27/2020 4:11 PM CDT): Intense itching, worse at night and awakens her. PUPPP rash present with striae on her abdomen. No vesicles noted or areas concerning for infection. Also having eczema flare on forearms, hands, feet, does not have spouter. Recommendations: CMP and bile acids, prefer fasting values. Likely not cholestasis of , but will assess. More likely PUPPP rash and exacerbation of eczema. Dermatology referral. RX provided for Ursodiol as this can help with pruritis even if not cholestasis. Hydroxyzine as needed, and topical steroid. Insulin controlled gestation al diabetes mellitus (GDM) in third trimester 10/29/2020 Overview (01/14/2021): (08/14/20) 1 hr GCT: 216 3hr GTT: (10/02/20) HgA1c: 6.2 (01/13/21) HgA1c: 6.0 Assessment & Plan (01/29/2021 5:51 PM BEEF GRINDER): Diabetes difficult to control. Now on TID NPH and TIDAC novolog. Improved fasting values and a low today. Still with some difficulty with postprandial dinner elevations. Recommendations 1. See Pizza Chef note for insulin changes 2. Continue checking blood glucose 4 times daily and keeping a food diary and blood glucose log 3. Send diary and logs weekly for review to the Diabetic Nurse Educator 4. Twice weekly nonstress tests, with weekly BPP due to cHTN 5. Serial growth every 4 weeks with last assessment at 38 weeks for mode of delivery 6. Delivery initiation between 39-40 weeks 7. Would benefit from and weight loss 8. Diabetes testing 4-5 weeks after delivery with review at 6 week visit Assessment & Plan (01/15/2021 12:11 PM CDT): Continued hyperglycemia with fasting and most post prandial values. True fasting values appear to be at 0600 when range is 80-90. May be having late kvng affect. Now wearing CGM (continuous glucose monitor) Reports diagnosis of PCOS at early age. No medications prior to . Compliant with insulin regimen. AGA growth with incomplete survey, 12/27. echocardiogram with pediatric cardiology, 01/06: Structurally normal heart Mild color flow turbulence across the aortic valve/ascending aorta. Recommend outpatient cardiology follow up at 1 mo of age. Recommendations: Perform 4 times daily blood glucose measurements Close contact with our community nutrition educator to optimize glycemic control on at least once weekly basis Insulin: [place] regimen: NPH 66 units in the morning and 88 units at bedtime. Novalog with meals to be: 22 units with breakfast, 28 lunch, 38 dinner. Advised to give NPH later in the night to see if that improves fasting values. Insulin changes reviewed with Dr. Mcdonald's input today. Will hold Metformin at 500mg BID given GI side effects with starting medication. Reviewed continuous glucose monitor readings with patient, again advised to treat hypoglycemia and seek evaluation if not increasing appropriately with intervention. Again encouraged adherence to carbohydrate counting, showed pattern of elevations on CGM with meals, especially dinner. Praised her efforts with carbohydrate counting this week. Dilated retinal exam: reports completed, we have not received kick counts twice daily, seek evaluation with decreased movement Twice weekly surveillance starting at 32 weeks. Reviewed this today, will begin in 3 weeks. Close surveillance for preeclampsia Typical delivery recommended at 39 weeks in uncomplicated diabetic ; further recommendations on timing of delivery will depend on glycemic control and surveillance. Asprin 162 mg daily to be continued. Assessment & Plan (12/11/2020 1:39 PM CDT): GDM vs. Prediabetes Continued hyperglycemia with fasting and most post prandial values. Inconsistent with carbohydrate counting. Eager to improve glucose control. Reports diagnosis of PCOS at early age. No medications prior to . AGA growth today with incomplete survey. Recommendations: Perform 4 times daily blood glucose measurements Close contact with our community nutrition educator to optimize glycemic control on at least once weekly basis Insulin: Increase Lantus: to 50 units BID. Increase Novalog with meals to 12 units with breakfast, 18 lunch, 22 dinner. Start Metformin titration. Reviewed possible GI side effects. Encouraged adherence to carbohydrate counting, especially when eating out. Encouraged exercise, consider swimming if walking is challenging. Discussed we can provide a PT referral as well. Discussed we may consider a pump if there is continued need to increase insulin dosages. Dilated retinal exam: encouraged to complete. Reviewed risk of stillbirth with persistent elevations. Alert us promptly of any hypoglycemia, reviewed treatment. Baseline labs: 24-hour urine collection for protein, CMP, TSH: completed. Comprehensive scan at 18 to 20 weeks and echocardiogram is scheduled for 12/13. kick counts twice daily at 28 weeks. Twice weekly surveillance starting at 32 weeks. Close surveillance for gestational hypertension and preeclampsia Typical delivery recommended at 39 weeks in uncomplicated diabetic ; further recommendations on timing of delivery will depend on glycemic control and surveillance. Asprin 162 mg daily to be continued. Assessment & Plan (11/27/2020 4:26 PM CDT): Continued hyperglycemia with fasting and most post prandial values. Reports following diet well. AGA growth today with incomplete survey. Recommendations: Perform 4 times daily blood glucose measurements Close contact with our community nutrition educator to optimize glycemic control on at least once weekly basis Insulin: Increase Lantus: to 36 units BID. Increase Novalog with meals to 8 units with breakfast, lunch, dinner. Dilated retinal exam: encouraged to complete. Alert us promptly of any hypoglycemia, reviewed treatment. Baseline labs: 24-hour urine collection for protein, CMP, TSH: completed. Comprehensive scan at 18 to 20 weeks and echocardiogram is scheduled for 12/13. Twice weekly surveillance starting at 32 weeks. Close surveillance for gestational hypertension and preeclampsia Typical delivery recommended at 39 weeks in uncomplicated diabetic ; further recommendations on timing of delivery will depend on glycemic control and surveillance. Asprin 162 mg daily to be continued. Supervision of high-risk of lina vazquez 10/29/2020 Overview (10/29/2020): O+, Negative, Immune, Rpr-NR, Hbsag-NR, HIV-NR H/h/p: 13.8, 42.6, 293 Maternal morbid obesity, antepartum 10/23/2020 Assessment & Plan (11/27/2020 4:28 PM CDT): See plans for cHTN and gestational diabetes. 3lb interval weight gain since last office visit. Recommendations: Limit weight gain to 15 pounds. testing driven by other co-morbidities. Would benefit from and weight reduction. History of macrosomia in inf ant in prior , currently in second trimester 10/23/2020 Assessment & Plan (01/29/2021 6:03 PM BEEF GRINDER): Last AC measurement at the 95th percentile. History of 10/23/2020 Resolved Problems Problem Noted Date Diagnosed Date Resolved Date malpresentation 03/03/20212024 33 weeks gestation of 02/25/2021 03/03/2021 35 weeks gestation of 02/12/2021 03/03/2021 Encounter for screenin g for congenital cardiac abnormalities 03/03/2021 24 weeks gestation of 01/15/2021 Encounters * This document contains information received from the source organization and may not represent a complete record from that organization. Date Type Department Care Team Description 07/25/2024 Telephone [facility] - Internal Med [address] [place] [address] Bigg Saavedra III, MD Medication Prior Auth Request 07/18/2024 Travel 07/17/2024 10:30 AM CDT Office Visit [facility] - Internal Med [address] [place] [phone] Bigg Saavedra III, MD Type 2 diabetes mellitus with stage 3 chronic kidney disease, without long-term current use of insulin, unspecified whether stage 3a or 3b CKD (HCC) (Primary Dx); Menorrhagia with regular cycle; Metabolic dysfunction-associat ed steatotic liver disease (MASLD); Class 3 severe obesity with serious comorbidity and body mass index (BMI) of 40.0 to 44.9 in adult, unspecified obesity type (HCC); Metabolic syndrome; Routine health maintenance; Family history of colon cancer in father; Polydipsia 07/17/2024 Travel 07/03/2024 Telephone [facility] - Centralized Scheduling [address] [place] [phone] Anel Land MD Appointment 06/05/2024 4:00 PM CDT Office Visit [facility] - Sleep Services [address] [place] [address] Naeem Lay MD Iron deficiency (Primary Dx); Elevated ALT measurement 06/05/2024 Travel from Last 3 Months Immunizations Immunization Administration Dates Next Due INFLUENZA VACCINE 01/06/2019,01/27/2017 INFLUENZA VACCINE, QUADR. (A FLURIA, FLUZONE QUADRIVALENT; 6MO+) (IIV4) 12/20/2009 INFLUENZA VACCINE, QUADR. (F LUZONE; FLULAVAL; FLUARIX; AFLURIA QUADRIVALENT; 6MO+), 0.5 ML (IIV4) 03/23/2023 MMR 03/12/2021() PNEUMOCOCCAL PCV20 CONJ VAC IM 06/14/2023 TDAP (7yrs+) 03/12/2021(Deferred: See Comments - has had),02/28/2021,06/22/2019 Family History Medical History Relation Name Comments None Known Brother Diabetes - Type 2 Father None Known Maternal Aunt None Known Maternal Grandfather None Known Maternal Grandmother None Known Maternal Uncle Hypertension Mother None Known Other None Known Paternal Aunt None Known Paternal Grandfather None Known Paternal Grandmother None Known Paternal Uncle None Known Sister Asthma Neg Hx CVA Neg Hx Cancer - Breast Neg Hx Cancer - Other Neg Hx Cancer - Skin, Melanoma Neg Hx Cancer - Skin, Non Melanoma Neg Hx Eczema Neg Hx Hemophilia Neg Hx Psoriasis Neg Hx Relation Name Status Comments Brother Father Maternal Aunt Maternal Grandfather Maternal Grandmother Maternal Uncle Mother Alive Other Paternal Aunt Paternal Grandfather Paternal Grandmother Paternal Uncle Sister Alive Social History Tobacco Use Types Packs/Day Years Used Date Smoking Tobacco: Never Smokeless Tobacco: Current Tobacco Cessation:Ready to Q uit: Not Asked; Counseling Given: Not Answered Alcohol Use Standard Drinks/Week Comments Not Currently 0 (1 standard drink = 0.6 oz pur e alcohol) almost never PHQ-2 Answer Date Recorded Patient Health Questionnaire-2 Score 2 07/18/2024 [place] Depression Scale Answer Date Recorded RETIRED 04/22/2022 Total Score 6 12/2021 Last EPDS Self Harm Result Not on file 04/24 Comments No Sex and Gender Information Value Date Recorded Sex Assigned at Not on file Legal Sex Female 4:02 PM CDT Gender Identity Not on file Sexual Orientation Not on file Occupation Industry Job Start Date Job End Date [employer] Not on file Not on file Not on file Last Filed Vital Signs Vital Sign Reading Time Taken Comments Blood Pressure 127/81 07/18/2024 9:07 AM CDT Pulse 107 07/18/2024 9:07 AM CDT Temperature 37 C (98.6 F) 07/17/2024 10:20 AM CDT Respiratory Rate 16 01/19/2024 9:39 AM BEEF GRINDER Oxygen Saturation 100% 07/18/2024 9:07 AM CDT Inhaled Oxygen Concentration - - Weight 145.2 kg (320 lb) 07/18/2024 9:07 AM CDT Height 157.5 cm (5' 2 ) 07/17/2024 10:20 AM CDT Body Mass Index 58.53 07/17/2024 10:20 AM CDT Plan of Treatment Upcoming Encounters Date Type Department Care Team (Latest Contact Info) Description 09/11/2024 6:30 AM CDT Appointment [facility] MRI [address] [place] [address] Bigg Saavedra III, MD [address] [place] [address] [address] [place] [phone] 10/10/2024 10:30 AM CDT Hospital Encounter [facility] ENDOSCOPY [address] [place] [phone] Zacarias Saleh MD [address] [place] [address] [address] [place] [address] Surgery General 10/10/2024 10:30 AM CDT - 10/10/2024 11:15 AM CDT Surgery [facility] [address] [place] [phone] Zacarias Saleh MD [address] [place] [address] [address] [place] [address] COLONOSCOPY SCREEN---PAT needed 10/16/2024 9:00 AM CDT Office Visit [facility] - Internal Med [address] [place] [address], [place] [address] Ivette Palma PA-C [address] [place] [address] DEPT [place] [phone] 10/25/2024 9:00 AM CDT Office Visit [facility] - GI [address] [place] [address], [place] [phone] Osiris Herring MD [address] [place] [address] 12/06/2024 4:00 PM CDT Office Visit [facility] - Sleep Services [address] [place] [address] Naeem Lay MD [address] DIV OF PULMONARY/[place] [address] Scheduled Procedures Name Priority Associated Diagnoses Date/Ti me COLONOSCOPY SCREEN Family history of colon cancer 10/10/2024 10:30 AM CDT Health Maintenance Due Date Last Done Comments COVID-19 VACCINE ( season) 2023 11/28/2020, 10/30/2020 DIABETES - URINE PROTEIN SCREENING 03/15/2024 02/01/2024, 03/10/2021, 02/12/2021, Additional history exists INFLUENZA VACCINE (Season Ended) 2024 03/23/2023, 11/28/2020, 01/06/2019, Additional history exists DIABETES-HGB A1C 01/17/2025 07/17/2024, 03/2024, 04/17/2024, Additional history exists DIABETES RETINOPATHY SCREENING 06/13/2025 06/14/2023 DIABETES-SERUM CREATININE 07/13/20252024, 07/13/2024, 07/13/2024, Additional history exists DIABETES-FOOT EXAM WITH MONOFILAMENT 07/17/2025 07/17/2024, 06/14/2023, 06/14/2023 PAP SMEAR 01/19/2026 01/19/2023 (Done Outside Per Report) DTAP/TDAP/TD VACCINES (3 - Td or Tdap) 02/28/2031 02/28/2021, 06/22/2019 ZOSTER VACCINE (1 of 2) 2038 HEPATITIS C SCREENING Completed 10/06/2022 HIV SCREENING Completed 10/06/2022, 01/13/2021 PNEUMOCOCCAL VACCINE Completed 06/14/2023 HEPATITIS B VACCINE Discontinued HIB VACCINE Aged Out No longer eligi ble based on patient's age to complete this topic HPV VACCINE Aged Out No longer eligi ble based on patient's age to complete this topic MENINGOCOCCAL (Group B) VACCINE SHARED DECISION-MAKING Aged Out No longer eligible based on patient's age to complete this topic MENINGOCOCCAL GROUPS A/C/Y/W VACCINE Aged Out No longer eligible based on patient's age to complete this topic Procedures Procedure Name Priority Date/Time Associated Diagnosis Comments HEMOGLOBIN A1C - POINT OF CARE (AMB) [facility] Routine 07/17/2024 10:30 AM CDT Type 2 diabetes mellitus with stage 3 chronic kidney disease, without long-term current use of insulin, unspecified whether stage 3a or 3b CKD (HCC) COMPREHENSIVE METABOLIC PANEL 02/01/2024 7:47 AM BEEF GRINDER MICROALB/CREAT RATIO URINE RANDOM PANEL 02/01/2024 7:43 AM BEEF GRINDER PROC OPH DIAB BILAT RET SCRN WCOMP INTERP Routine 06/14/2023 12:04 PM CDT Type 2 diabetes mellitus without complication, 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 HEPATITIS C AB W/RFLX TO HCV RNA QN PCR 10/06/2022 9:58 AM CDT HIV-1 HIV-2 ANTIBODY + HIV P24 AG PANEL 10/06/2022 9:58 AM CDT from Last 3 Months or Most Recently Relevant to Health Maintenance Results * HEMOGLOBIN A1C - POINT OF CARE (AMB) [facility] (07/17/2024 10:30 AM CDT) Hemoglobin A1c POCT 7.2 % [facility] [address] [place] [address] BLOOD SPECIMEN / Unknown 07/17/2024 10:30 AM CDT Bigg Saavedra III, MD LAB - POINT OF CARE ORDER ANILA Final Result [facility] [address] [place] [address] [address] [facility], [place] [address], [facility] [phone] * (ABNORMAL) COMPREHENSIVE METABOLIC PANEL (02/01/2024 7:47 AM BEEF GRINDER) Glucose 141(H) 65 - 99 mg/dL [facility] Comment: Fasting reference interval For someone without known diabetes, a glucose value >125 mg/dL indicates that they may have diabetes and this should be confirmed with a follow-up test. BUN 10 7 - 25 mg/dL [facility] Creatinine 0.68 0.50 - 0.97 mg/dL [facility] eGFR by Cystatin C 116 > OR = 60 mL/min/1. 73m2 [facility] BUN/Creatinine Ratio SEE NOTE: 6 - 22 (calc) [facility] Comment: Not Reported: BUN and Creatinine are within reference range. Sodium 138 135 - 146 mmol/L [facility] Potassium 4.6 3.5 - 5.3 mmol/L [facility] Chloride 104 98 - 110 mmol/L [facility] CO2 25 20 - 32 mmol/L [facility] Calcium 8.9 8.6 - 10.2 mg/dL [facility] Protein Total 6.9 6.1 - 8.1 g/dL [facility] Albumin 4.0 3.6 - 5.1 g/dL [facility] Globulin Total 2.9 1.9 - 3.7 g/dL (calc) [facility] Albumin/Globulin Ratio 1.4 1.0 - 2.5 (calc) [facility] Bilirubin Total 0.6 0.2 - 1.2 mg/dL [facility] Alkaline Phosphatase 68 31 - 125 U/L [facility] AST 32(H) 10 - 30 U/L [facility] ALT 25 6 - 29 U/L [facility] Comment: REPORT COMMENT: FASTING:YES Test Performed at: [address] [facility] [address] [place] [id number] AMY DAVIDSON MD 02/01/2024 7:47 AM BEEF GRINDER 02/01/2024 7:47 AM BEEF GRINDER Norma Márquez MD LAB - CHEMISTRY ORDERABL ES Final Result [facility] [id number] [place] [address] * MICROALB/CREAT RATIO URINE RANDOM PANEL (02/01/2024 7:43 AM BEEF GRINDER) Creatinine Urine 168 20 - 275 mg/dL [facility] Microalbumin Urine 1.5 mg/dL [facility] Comment: Reference Range Not established Microalbumin/Creat inine Ratio 9 <30 mg/g creat [facility] Comment: The ADA defines abnormalities in albumin excretion as follows: Albuminuria Category Result (mg/g creatinine) Normal to Mildly increased <30 Moderately increased 30-299 Severely increased > OR = 300 The ADA recommends that at least two of three specimens collected within a 3-6 month period be abnormal before considering a patient to be within a diagnostic category. REPORT COMMENT: FASTING:YES Test Performed at: [facility] [address] [facility] [place] [address] AMY DAVIDSON MD 02/01/2024 7:43 AM BEEF GRINDER 02/01/2024 7:43 AM BEEF GRINDER Bigg Saavedra III, MD LAB - URINE CHEMISTRY ORD ERABLES Final Result Performing Organization Address [facility] Co de Phone Number [facility] [address] [place] [phone] * Diabetes Retinopathy Screening (06/14/2023 12:04 PM CDT) [facility] IDX DR SCREEN No Diabetic Retinopathy Detected: ETDRS level 20 or lower and no Diabetic Macular Edema [facility] Comment: Next Steps: Retest in 12 months IDx Submission ID: [id number] Results were produced by a system that provides an artificial intelligence (AI) interpretation A positive result indicates a high risk of diabetic retinopathy with a severity of ETDRS level 35 or higher and/or macular edema. IDx-DR diabetic retinopathy exam does not replace a comprehensive eye exam. 06/14/2023 12:0 4 PM CDT Bigg Saavedra III, MD PROCEDURE/MINOR SURGICAL ORDERABLES Final Result Performing Organization Address City/[facility]/ZIP Co de Phone Number [facility] DR [facility] * HEPATITIS C AB W/RFLX TO HCV RNA QN PCR (10/06/2022 9:58 AM CDT) [facility] Hepatitis C Antibody NON-REACTI VE NON-REACT LISANDRA [facility] Comment: HCV antibody was non-reactive. There is no laboratory evidence of HCV infection. In most cases, no further action is required. However, if recent HCV exposure is suspected, a test for HCV RNA (test code 39779) is suggested. For additional information please refer to http://Litehouse.Verenium/faq/BHG06m7 (This link is being provided for informational/ educational purposes only.) Test Performed at: [facility] [place] [address] AMY DAVIDSON MD 10/06/2022 9:58 AM CDT 10/06/2022 9:59 AM CDT Bigg Saavedra III, MD LAB - CHEMISTRY ORDERABLE S Final Result Performing Organization Address City/State/[facility] Co de Phone Number [facility] [address] [place] [address] * HIV-1 HIV-2 ANTIBODY + HIV P24 AG PANEL (10/06/2022 9:58 AM CDT) Pathologist [facility] HIV Screen 4th Generation w Reflex NON-REACT LISANDRA NON-REACT LISANDRA [facility] Comment: HIV-1 antigen and HIV-1/HIV-2 antibodies were not detected. There is no laboratory evidence of HIV infection. PLEASE NOTE: This information has been disclosed to you from records whose confidentiality may be protected by state law. If your state requires such protection, then the state law prohibits you from making any further disclosure of the information without the specific written consent of the person to whom it pertains, or as otherwise permitted by law. A general authorization for the release of medical or other information is NOT sufficient for this purpose. For additional information please refer to http://Litehouse.Verenium/faq/HPY293 (This link is being provided for informational/ educational purposes only.) The performance of this assay has not been clinically validated in patients less than 2 years old. Test Performed at: [facility] [address] [place] [address] AMY DAVIDSON MD 10/06/2022 9:58 AM CDT 10/06/2022 9:59 AM CDT Bigg Saavedra III, MD LAB - CHEMISTRY ORDERABLE S Final Result [facility] [address] [place] [address] from Last 3 Months or Most Recently Relevant to Health Maintenance Insurance [facility] Advance Directives * Full Code (Latest Code Status on File) Date Activated Date Inactivated Comments 04/14/2021 3:42 PM 04/14/2021 8:14 PM * Full Code Date Activated Date Inactivated Comments 03/10/2021 9:05 PM 03/12/2021 7:22 AM * Full Code Date Activated Date Inactivated Comments 03/10/2021 8:18 PM 03/10/2021 9:05 PM * Full Code Date Activated Date Inactivated Comments 02/26/2021 4:02 PM 02/28/2021 5:51 PM * Full Code Date Activated Date Inactivated Comments 01/26/2021 3:41 AM 01/27/2021 4:28 PM Care Teams [employer]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
--- OUTSIDE RECORDS SUMMARY | 2024-08-05 11:17 | XMS_ITS | Clinical Summary ---
Author Organization [facility] [employer] [facility] Address [address] [place] [address] [address] [place], [place] [address] Phone Care Team Providers Care Substance Abuse Specialist Name Role Phone Unavailable Primary Care Provider Unavailabl e Allergies Active Allergy Reactions Criticality Noted Date Comments Diphenhydramine Hcl Other (See Comments) 2012 Hyperactivity, pt st. Medications No known medications Active Problems Problem Noted Date Diagnosed Date Dysphagia, idiopathic 05/06/2016 Family History Medical History Relation Name Comments Healthy Mother Hypertension Mother Relation Name Status Comments Father Mother Alive Social History Tobacco Use Types Packs/Day Years Used Date Smoking Tobacco: Never Smokeless Tobacco: Never Alcohol Use Standard Drinks/Week Comments No 0 (1 standard drink = 0.6 oz pur e alcohol) rare Comments No Sex and Gender Information Value Date Recorded Sex Assigned at Not on file Legal Sex Female 10:23 AM LEARNING CENTER COORDINATOR Gender Identity Not on file Sexual Orientation Not on file Occupation Industry Job Start Date Job End Date Not on file Not on file Not on file Not on file Last Filed Vital Signs Vital Sign Reading Time Taken Comments Blood Pressure 148/87 05/12/2016 12:07 PM LEARNING CENTER COORDINATOR Pulse 61 05/12/2016 12:07 PM LEARNING CENTER COORDINATOR Temperature 36.6 C (97.8 F) 05/12/2016 11:57 AM LEARNING CENTER COORDINATOR Respiratory Rate 16 05/12/2016 12:07 PM LEARNING CENTER COORDINATOR Oxygen Saturation 100% 05/12/2016 12:07 PM LEARNING CENTER COORDINATOR Inhaled Oxygen Concentration - - Weight 88.5 kg (195 lb) 05/12/2016 11:09 AM LEARNING CENTER COORDINATOR Height 157.5 cm (5' 2 ) 05/08/2016 2:18 PM LEARNING CENTER COORDINATOR Body Mass Index 35.67 05/08/2016 2:18 PM LEARNING CENTER COORDINATOR Plan of Treatment Health Maintenance Due Date Last Done Comments DTAP/TDAP/TD VACCINES (1 - Tdap) 10/29/2007 HEPATITIS B VACCINES (1 of 3 - 19+ 3-dose series) 10/29/2007 HPV/Cotest (21-29) 2009 CERVICAL CANCER SCREENING 2018 HPV/Cotest (30-65) 2018 PAP SMEAR 2018 INFLUENZA VACCINE (#1) 2023 HPV VACCINES Aged Out No longer eligi ble based on patient's age to complete this topic Insurance O Advance Directives For more information, please contact: [phone] * Full Code (Latest Code Status on File) Date Activated Date Inactivated Comments 05/12/2016 11:27 AM 05/12/2016 2:27 PM * Full Code Date Activated Date Inactivated Comments 05/12/2016 11:01 AM 05/12/2016 11:27 AM
--- OUTSIDE RECORDS SUMMARY | 2024-08-05 11:17 | XMS_ITS | Clinical Summary ---
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 90 Tablet 2 Active Additional Information Patient taking differently:10 mg OralEVERY MORNING, Reported on 03/18/2022 ARIPiprazole (ABILIFY) 10 MG Tablet 20 mg every morning. 2 Active Lisdexamfetamin e Dimesylate (Vyvanse) 30 MG Capsule Take 30 mg by mouth every morning. Active metFORMIN (GLUCOPHAGE) 500 MG Tablet Take 500 mg by mouth 2 times daily (with meals). Active Vyvanse 50 MG Capsule TAKE 1 (ONE) CAPSULE BY MOUTH EVERY MORNING FOR 30 DAYS REASONS: BINGE EATING DISORDER 3 Active Progesterone 200 MG Capsule 3 Active lamoTRIgine (LaMICtal) 100 MG Tablet TAKE 1 (ONE) TABLET BY MOUTH ONCE DAILY FOR 90 DAYS 3 Active HYDROcodone-kit taminophen (NORCO) 5-325 MG TabletIndicatio ns:Kidney stone Take 1 Tablet by mouth every 6 hours as needed for Moderate or more severe pain. 12 Tablet 5 Active ondansetron (ZOFRAN) 4 MG TabletIndicatio ns:Nausea and Vomiting Take 1 Tablet by mouth every 8 hours as needed for Nausea - 1st line. Indications: Nausea and Vomiting 10 Tablet 5 Active Active Problems No known active problems Encounters Date Type Department Care Team Description 07/13/2024 7:11 PM CDT - 07/13/2024 9:58 PM CDT Emergency [facility] Emergency [address] [place] [address] Kalen Thacker, SCARLET Polydipsia Discharge Disposition: Discharged to home or Selfcare 07/13/2024 Travel 06/21/2024 7:58 AM CDT - 06/21/2024 10:48 AM CDT Emergency [facility] Emergency [address] [place] [address] Uday Mazariegos MD Kidney stone Discharge Disposition: Discharged to home or Selfcare 06/21/2024 Travel from Last 3 Months Family History Medical History Relation Name Comments Diabetes Father Hypertension Mother Multiple Sclerosis Mother Relation Name Status Comments Father Mother Alive Social History Tobacco Use Types Packs/Day Years Used Date Smoking Tobacco: Former Cigarettes Q uit: 2018 Smokeless Tobacco: Never Alcohol Use Standard Drinks/Week Comments Yes 0 (1 standard drink = 0.6 oz pur e alcohol) RARELY Sexually Active Control Partners Comments Yes Surgical Male Comments No Sex and Gender Information Value Date Recorded Sex Assigned at Not on file Legal Sex Female 10:48 PM CDT Gender Identity Not on file Sexual Orientation Not on file Last Filed Vital Signs Vital Sign Reading Time Taken Comments Blood Pressure 139/84 07/13/2024 9:45 PM CDT Pulse 85 07/13/2024 9:45 PM CDT Temperature 36.3 C (97.4 F) 07/13/2024 6:09 PM CDT Respiratory Rate 16 07/13/2024 9:45 PM CDT Oxygen Saturation 98% 07/13/2024 9:45 PM CDT Inhaled Oxygen Concentration - - Weight 145.2 kg (320 lb) 07/13/2024 6:07 PM CDT Height 157.5 cm (5' 2 ) 07/13/2024 6:07 PM CDT Body Mass Index 58.53 07/13/2024 6:07 PM CDT Plan of Treatment Health Maintenance Due Date Last Done Comments Hepatitis C Virus (HCV) Screening 1988 Hepatitis B Immunization (1 of 3 - 19+ 3-dose series) 10/29/2007 Pap Smear 2009 Cervical Cancer Screening (CCS) 2018 HPV/Cotest 2018 SARS-COV-2 Immunization (2023- season) 2023 11/28/2020, 10/30/2020 Influenza Immunization (Season Ended) 2024 03/23/2023, 11/28/2020, 01/06/2019, Additional history exists Respiratory Syncytial Virus (RSV) Immunization (Adult) (1 - 1-dose 75+ series) 10/29/2063 DTaP/Tdap/Td Immunization Discontinued 02/28/2021, 11/2019 TdaP Immunization Completed 02/28/2021, 06/22/2019 Pneumococcal Immunization Combined Aged Out 06/14/2023 No longer eligible based on patient's age to complete this topic Human Papillomavirus (HPV) Immunization Aged Out No longer eligible based on patient's age to complete this topic Meningococcal Immunization (ACWY) Aged Out No longer eligible based on patient's age to complete this topic Rotavirus Immunization Aged Out No lo nger eligible based on patient's age to complete this topic Procedures Procedure Name Priority Date/Time Associated Diagnosis Comments URINE DRUG SCREEN STAT 07/13/2024 7:4 0 PM CDT URINALYSIS REFLEX IF INDICATED BY ABNORMAL RESULTS STAT 07/13/2024 7:40 PM CDT CBC WITH AUTO DIFFERENTIAL STAT 07/13/2024 6:12 PM CDT HEMOGLOBIN A1C W/ ESTIMATED GLUCOSE STAT 07/13/2024 6:12 PM CDT THYROID STIMULATING HORMONE (TSH) STAT 07/13/2024 6:12 PM CDT CMP (COMPREHENSIVE METABOLIC PANEL) STAT 07/13/2024 6:12 PM CDT COMPLETE BLOOD COUNT (CBC) WITH DIFF STAT 07/13/2024 6:12 PM CDT POCT GLUCOSE STAT 07/13/2024 6:[address] RENAL STONE STUDY (ABDOMEN AND PELVIS W/O CONTRAST) Stat with Interpretation 06/21/2024 9:19 AM CDT URINALYSIS REFLEX IF INDICATED BY ABNORMAL RESULTS STAT 06/21/2024 8:20 AM CDT GOLD TOP TUBE STAT 06/21/2024 8:07 AM CDT BLUE TOP TUBE STAT 06/21/2024 8:07 AM CDT CBC WITH AUTO DIFFERENTIAL STAT 06/21/2024 8:07 AM CDT EXTRA TUBES STAT 06/21/2024 8:07 AM CDT LIPASE STAT 06/21/2024 8:07 AM CDT MAGNESIUM (MG) STAT 06/21/2024 8:07 AM CDT CMP (COMPREHENSIVE METABOLIC PANEL) STAT 06/21/2024 8:07 AM CDT COMPLETE BLOOD COUNT (CBC) WITH DIFF STAT 06/21/2024 8:07 AM CDT POCT URINE HCG () STAT 06/21/2024 8:06 AM CDT from Last 3 Months Results * (ABNORMAL) Urinalysis w/ Reflex (07/13/2024 7:40 PM CDT) Only the most recent of2 resultswithin the time period is included. SPECIFIC GRAVITY 1.025 1.003 - 1.030 07/13/2024 8:14 PM CDT [facility] URINE PH 6.0 5.0 - 9.0 07/13/2024 8:14 PM CDT [facility] WBC ESTERASE Negative Negative 07/13/2024 8:14 PM CDT [facility] NITRITE Negative Negative 07/13/2024 8:14 PM CDT [facility] PROTEIN, RANDOM URINE 15 mg/dL(A) Negative 07/13/2024 8:14 PM CDT [facility] URINE GLUCOSE, QUAL Negative Negative 07/13/2024 8:14 PM CDT [facility] URINE KETONES Negative Negative 07/13/2024 8:14 PM CDT [facility] UROBILINOGEN Normal Normal mg/dL 07/13/2024 8:14 PM CDT [facility] URINE BLOOD Negative Negative kiet/ul 07/13/2024 8:14 PM CDT [facility] URINALYSIS COLOR Yellow 07/14/19 8:14 PM CDT [facility] URINALYSIS CLARITY Slightly Cloudy 07/13/2024 8:14 PM CDT [facility] Urine URINE SPECIMEN / Unknown Non-Phlebotomy Collection / Unknown 07/13/2024 7:40 PM CDT 07/13/2024 7:54 PM CDT us Kalen Thacker PAC URINE ORDERABLES Fin al Result Performing Organization Address City/State/[facility] Co de Phone Number [facility] [address] [place] [address] * (ABNORMAL) Urine Drug Screen (07/13/2024 7:40 PM CDT) [facility] UR AMPHETAMINE DETECTED(A) NON DETECTED 07/13/2024 8:28 PM CDT [facility] Comment: FOR MEDICAL USE ONLY. CUTOFF CONCENTRATION FOR DETECTED RESULT: AMPHETAMINE: 500 NG/ML UR BENZODIAZEPINES NON DETECTED NON DETECTED 07/13/2024 8:28 PM CDT [facility] Comment: FOR MEDICAL USE ONLY. CUTOFF CONCENTRATION FOR DETECTED RESULT: BENZODIAZAPINE: 200 NG/ML UR COCAINE METABOLITE NON DETECTED NON DETECTED 07/13/2024 8:28 PM CDT [facility] Comment: FOR MEDICAL USE ONLY. CUTOFF CONCENTRATION FOR DETECTED RESULT: COCAINE: 150 NG/ML UR OPIATES NON DETECTED NON DETECTED 07/13/2024 8:28 PM CDT [facility] Comment: FOR MEDICAL USE ONLY. CUTOFF CONCENTRATION FOR DETECTED RESULT: OPIATES: 300 NG/ML UR PHENCYCLIDINE NON DETECTED NON DETECTED 07/13/2024 8:28 PM CDT [facility] Comment: FOR MEDICAL USE ONLY. CUTOFF CONCENTRATION FOR DETECTED RESULT: PCP: 25 NG/ML UR CANNABINOID NON DETECTED NON DETECTED 07/13/2024 8:28 PM CDT [facility] Comment: FOR MEDICAL USE ONLY. CUTOFF CONCENTRATION FOR DETECTED RESULT: THC (MARIJUANA): 50 NG/ML UR BARBITURATE NON DETECTED NON DETECTED 07/13/2024 8:28 PM CDT [facility] Comment: FOR MEDICAL USE ONLY. CUTOFF CONCENTRATION FOR DETECTED RESULT: BARBITUATES: 200 NG/ML UR FENTANYL NON DETECTED NON DETECTED 07/13/2024 8:28 PM CDT [facility] Comment: FOR MEDICAL USE ONLY. CUTOFF CONCENTRATION FOR DETECTED RESULT: FENTANYL: 1.0 NG/ML Urine Non-Phlebotomy Collection / Unknown 07/13/2024 7:40 PM CDT 07/13/2024 8:15 PM CDT us Kalen Thacker PAC URINE ORDERABLES Fin al Result [facility] [address] [place] [address] * (ABNORMAL) Hemoglobin A1C w/ Estimated Glucose (07/13/2024 6:12 PM CDT) HGB-A1C 7.0(H) 4.0 - 6.0 % 07/13/2024 9:27 PM CDT [facility] Est Average Glucose 154.2 mg/dL 07/13/2024 9:27 PM CDT [facility] Blood Venipuncture / Unknown 07/13/2024 6:12 PM CDT 07/13/2024 6:21 PM CDT Narrative [facility] - 07/13/2024 9:27 PM CDT HEMOGLOBIN A1C: DIABETIC PATIENTS: WELL-CONTROLLED: 6.2 - 7.0 INTERMEDIATE WELL-CONTROLLED: 7.0 - 9.0 POORLY-CONTROLLED: >9.0 Specimens containing greater than 5% of Hemoglobin F may result in lower than expected % HbA1C results. us Kalenекатерина Duckworth Kedar PAC CHEMISTRY ORDERABLES Final Result [facility] [address] [place] [address] * (ABNORMAL) CBC with Auto Differential (07/13/2024 6:12 PM CDT) Only the most recent of2 resultswithin the time period is included. WBC 11.07 4.00 - 12.00 10(3)/mcL 07/13/2024 6:24 PM CDT [facility] RBC 4.84 3.80 - 5.30 10(6)/mcL 07/13/2024 6:24 PM CDT [facility] HEMOGLOBIN (HGB) 13.6 12.0 - 15.8 g/dL 07/13/2024 6:24 PM CDT [facility] HEMATOCRIT (HCT) 41.5 36.0 - 47.0 % 07/13/2024 6:24 PM CDT [facility] MCV 85.7 82.0 - 96.0 fL 07/13/2024 6:24 PM CDT [facility] MCH 28.1 26.0 - 34.0 pg 07/13/2024 6:24 PM CDT [facility] MCHC 32.8 31.0 - 36.0 g/dL 07/13/2024 6:24 PM CDT [facility] PLATELET COUNT 326 140 - 440 10(3)/mcL 07/13/2024 6:24 PM CDT [facility] RDW 13.3 11.8 - 15.5 % 07/13/2024 6:24 PM CDT [facility] MPV 9.6(L) 9.7 - 12.4 fL 07/13/2024 6:24 PM CDT [facility] NEUTROPHILS 60.0 47.0 - 73.0 % 07/13/2024 6:24 PM CDT [facility] LYMPHOCYTES 32.2 18.0 - 42.0 % 07/13/2024 6:24 PM CDT [facility] MONOCYTES 6.2 4.0 - 12.0 % 07/13/2024 6:24 PM CDT [facility] EOSINOPHILS 1.1 0.0 - 5.0 % 07/13/2024 6:24 PM CDT [facility] BASOPHILS 0.5 0.0 - 1.0 % 07/13/2024 6:24 PM CDT [facility] ABSOLUTE NEUTROPHILS 6.65 1.60 - 7.70 10(3)/[facility] 07/13/2024 6:24 PM CDT [facility] ABSOLUTE LYMPHOCYTES 3.56(H) 1.30 - 3.20 10(3)/[facility] 07/13/2024 6:24 PM CDT [facility] ABSOLUTE MONOCYTES 0.69 0.20 - 1.00 10(3)/[facility] 07/13/2024 6:24 PM CDT [facility] ABSOLUTE EOSINOPHIL 0.12 0.00 - 0.40 10(3)/[facility] 07/13/2024 6:24 PM CDT [facility] ABSOLUTE BASOPHILS 0.05 0.00 - 0.10 10(3)/[facility] 07/13/2024 6:24 PM CDT [facility] NRBC PER 100 WBC 0 07/14/19 6:24 PM [facility] Blood Venipuncture / Unknown 07/13/2024 6:12 PM CDT 07/13/2024 6:21 PM CDT us Uday Mazariegos MD HEMATOLOGY ORDERABLES Fin al Result [facility] [address] [place] [address] * Thyroid Stimulating Hormone (TSH) [id number] (07/13/2024 6:12 PM CDT) Pathologist [facility] TSH 1.682 0.300 - 5.000 mIU/L 07/13/2024 8:02 PM CDT [facility] Blood Venipuncture / Unknown 07/13/2024 6:12 PM CDT 07/13/2024 6:21 PM CDT us Kalen Thacker PAC CHEMISTRY ORDERABLES Final Result Performing Organization Address City/[facility]/ZIP Co de Phone Number [facility] [address] [place] [address] * (ABNORMAL) Comprehensive Metabolic Panel (Cmp) [id number] (07/13/2024 6:12 PM CDT) Only the most recent of2 resultswithin the time period is included. Pathologist [facility] SODIUM 133(L) 136 - 145 mmol/L 07/13/2024 6:43 PM CDT [facility] POTASSIUM 4.2 3.5 - 5.1 mmol/L 07/13/2024 6:43 PM CDT [facility] CHLORIDE 102 98 - 107 mmol/L 07/13/2024 6:43 PM CDT [facility] CO2, VENOUS 22 22 - 30 mmol/L 07/13/2024 6:43 PM CDT [facility] ANION GAP 13.2 <18.0 mmol/L 07/13/2024 6:43 PM CDT [facility] GLUCOSE 131(H) 70 - 99 mg/dL 07/13/2024 6:43 PM CDT [facility] BUN 14 5 - 18 mg/dL 07/13/2024 6:43 PM CDT [facility] CREATININE, BLOOD 0.83 0.60 - 1.00 mg/dL 07/13/2024 6:43 PM CDT [facility] BUN/CREATININE RATIO 17 12 - 20 ratio 07/13/2024 6:43 PM CDT [facility] TOTAL PROTEIN 7.9 6.0 - 8.0 g/dL 07/13/2024 6:43 PM CDT [facility] ALBUMIN 4.1 3.5 - 5.0 g/dL 07/13/2024 6:43 PM T [facility] A/G RATIO 1.1 1.0 - 2.2 07/13/2024 6:43 PM CDT [facility] CALCIUM 9.6 8.7 - 10.5 mg/dL 07/13/2024 6:43 PM CDT [facility] T BILI 0.7 0.2 - 1.2 mg/dL 07/13/2024 6:43 PM T [facility] SGOT (AST) 51(H) <43 U/L 07/13/2024 6:43 PM [facility] SGPT (ALT) 41 <56 U/L 07/13/2024 6:43 PM [facility] ALKALINE PHOSPHATASE 70 40 - 150 U/L 07/13/2024 6:43 PM T [facility] GFR, ESTIMATED >60 >=60 07/13/2024 6:43 PM T [facility] Comment: Creatinine Clearance is the preferred criteria for selecting drug dose adjustments in renally impaired patients. The GFR is provided as additional pertinent clinical information. GFR is reported in mL/min/1.73 sq m. Calculation based on the Chronic Kidney Disease Epidemiology Collaboration (CKD- EPI) equation refit without adjustment for race. GFR, EST. >60 >=60 025 6:43 PM T [facility] GFR, EST. NONAFRICAN >60 >=60 07/13/2024 6:43 PM CDT [facility] Blood Venipuncture / Unknown 07/13/2024 6:12 PM CDT 07/13/2024 6:21 PM CDT us Uday Mazariegos MD CHEMISTRY ORDERABLES Carline l Result Performing Organization Address [facility] Co de Phone Number [facility] [address] [place] [address] * (ABNORMAL) POCT Glucose (07/13/2024 6:07 PM CDT) GLUCOSE,BEDSID E POCT 125(H) 70 - 99 mg/dL 07/13/2024 6:13 PM CDT [facility] Comment:Patient RN Performed Blood 07/13/2024 6:07 PM CDT 07/13/2024 6:13 PM CDT us None Provider POINT OF CARE TESTING Final Resu lt Performing Organization Address [facility] Co de Phone Number [facility] [address] [place] [address] * CT RENAL STONE STUDY (ABDOMEN AND PELVIS W/O CONTRAST) (06/21/2024 9:19 AM CDT) Anatomical Region Laterality Modality Abdomen N/A Computed Tomogra phy 06/21/2024 10:2 2 AM CDT Impressions 06/21/2024 10:25 AM CDT IMPRESSION: 4 mm calculus in the distal right ureter at the level of the UVJ with associated mild right hydronephrosis. Narrative 06/21/2024 10:25 AM CDT EXAM DESCRIPTION: CT RENAL STONE STUDY (ABDOMEN AND PELVIS W/O CONTRAST) REASON FOR STUDY: pt c/o RT flank pain that radiates into abd, increased frequency with dribbling/straining, with some N/V thats started this morning. TECHNIQUE: CT scan of the abdomen and pelvis performed without intravenous and without oral contrast using helical scanning technique. Reconstructed coronal and sagittal MPR images reviewed. All images stored on PACS. Automated exposure control was used as a dose optimization technique for this examination. COMPARISON: CT abdomen pelvis 12/03/2021 FINDINGS: The sensitivity for detection of visceral lesions is diminished without the use of intravenous contrast. LOWER CHEST: No significant pulmonary abnormalities. No effusion. LIVER: Decreased attenuation as seen with fibrofatty changes GALLBLADDER: Stones. No wall thickening or pericholecystic fluid BILE DUCTS: No intrahepatic or extrahepatic ductal dilatation. SPLEEN: Normal size. No focal lesions. PANCREAS: No identified cystic or solid masses. No significant calcifications. No adjacent inflammation or peripancreatic fluid collections. Pancreatic duct not dilated. ADRENALS: Normal. KIDNEYS/URINARY TRACT: Previously seen 4 mm calculus in the right kidney appears to have migrated into the distal right ureter at the level of the UVJ (4/150). There is associated mild right hydronephrosis. No suspicious renal lesion bilaterally.. Urinary bladder is unremarkable. GI: No dilated bowel loops. No obvious wall thickening. No significant diverticular disease. PERITONEUM: No ascites or free air. RETROPERITONEUM: No mass or adenopathy. REPRODUCTIVE: No significant abnormality. VASCULATURE: No abdominal aortic aneurysm. MUSCULOSKELETAL: Fat containing anterior abdominal wall hernia. No suspicious osseous findings OTHER: No other abnormality. THIS IS AN ELECTRONICALLY VERIFIED FINAL REPORT 06/21/2024 10:22 AM - Electronically signed by Roxana Paula M.D. FT: FT Report ID: [id number] Reading Location: [place] [address] Procedure Note Roxana Duran MD - 06/21/2024 EXAM DESCRIPTION: CT RENAL STONE STUDY (ABDOMEN AND PELVIS W/O CONTRAST) REASON FOR STUDY: pt c/o RT flank pain that radiates into abd, increased frequency with dribbling/straining, with some N/V thats started this morning. TECHNIQUE: CT scan of the abdomen and pelvis performed without intravenous and without oral contrast using helical scanning technique. Reconstructed coronal and sagittal MPR images reviewed. All images stored on PACS. Automated exposure control was used as a dose optimization technique for this examination. COMPARISON: CT abdomen pelvis 12/03/2021 FINDINGS: The sensitivity for detection of visceral lesions is diminished without the use of intravenous contrast. LOWER CHEST: No significant pulmonary abnormalities. No effusion. LIVER: Decreased attenuation as seen with fibrofatty changes GALLBLADDER: Stones. No wall thickening or pericholecystic fluid BILE DUCTS: No intrahepatic or extrahepatic ductal dilatation. SPLEEN: Normal size. No focal lesions. PANCREAS: No identified cystic or solid masses. No significant calcifications. No adjacent inflammation or peripancreatic fluid collections. Pancreatic duct not dilated. ADRENALS: Normal. KIDNEYS/URINARY TRACT: Previously seen 4 mm calculus in the right kidney appears to have migrated into the distal right ureter at the level of the UVJ (4/150). There is associated mild right hydronephrosis. No suspicious renal lesion bilaterally.. Urinary bladder is unremarkable. GI: No dilated bowel loops. No obvious wall thickening. No significant diverticular disease. PERITONEUM: No ascites or free air. RETROPERITONEUM: No mass or adenopathy. REPRODUCTIVE: No significant abnormality. VASCULATURE: No abdominal aortic aneurysm. MUSCULOSKELETAL: Fat containing anterior abdominal wall hernia. No suspicious osseous findings OTHER: No other abnormality. THIS IS AN ELECTRONICALLY VERIFIED FINAL REPORT 06/21/2024 10:22 AM - Electronically signed by Roxana Paula M.D. FT: FT Report ID: [id number] Reading Location: [id number] IMPRESSION: 4 mm calculus in the distal right ureter at the level of the UVJ with associated mild right hydronephrosis. Uday Mazariegos MD IMG CT ORDERABLES Final R esult * Gold Top Tube (06/21/2024 8:07 AM CDT) Blood No Phlebotomy Charged / Unknown 06/21/2024 8:07 AM CDT 06/21/2024 9:20 AM CDT Uday Mazariegos MD CHEMISTRY ORDERABLES Carline alvares Result [facility] [address] [place] [address] * Blue Top Tube (06/21/2024 8:07 AM CDT) Blood No Phlebotomy Charged / Unknown 06/21/2024 8:07 AM CDT 06/21/2024 9:20 AM CDT us Uday Mazariegos MD HEMATOLOGY ORDERABLES Fin al Result Performing Organization Address City/[facility]/ZIP Co de Phone Number [facility] [address] [place] [address] * Magnesium (06/21/2024 8:07 AM CDT) MAGNESIUM 1.8 1.6 - 2.6 mg/dL 06/21/2024 9:25 AM CDT [facility] Blood Venipuncture / Unknown 06/21/2024 8:07 AM CDT 06/21/2024 8:45 AM CDT us Uday Mazariegos MD CHEMISTRY ORDERABLES Carline l Result Performing Organization Address City/[facility] Co de Phone Number [facility] [address] [place] [address] * Lipase (06/21/2024 8:07 AM CDT) LIPASE 24 8 - 78 U/L 06/21/2024 9:25 AM CDT [facility] Blood Venipuncture / Unknown 06/21/2024 8:07 AM CDT 06/21/2024 8:45 AM CDT us Uday Mazariegos MD CHEMISTRY ORDERABLES Carline l Result Performing Organization Address City/[facility]/ZIP Co de Phone Number [facility] [address] [place] [address] * POCT Urine HCG () (06/21/2024 8:06 AM CDT) POC URINE Negative POC URINE CONTROL [employer]yl[employer] Urine 06/21/2024 8:06 AM CDT Uday Mazariegos MD POINT OF CARE TESTING (DON JARVIS) Final Result from Last 3 Months Insurance MEDICAID [place] Care Teams Waiter/Waitress Cafeteria Relationship Specialty Start Date End Date Provider, Not On File [place] PCP - General 03/14/23 Carl Leblanc MD [address] [facility] [address] [place] [address] Consulting Physician Urology 12/09/21
--- NOTE | 2024-08-05 11:28 | ECG_ITS ---
Test Date: 2024-08-05 11:42:04 Measurements Intervals [place] Rate: 76 P: 33 IN: 148 QRS: 5 QRSD: 91 T: 41 QT: 366 QTc: 414 Interpretive Statements SINUS RHYTHM LOW QRS VOLTAGE IN PRECORDIAL LEADS [QRS DEFLECTION < 1.0 mV IN CHEST LEADS] No previous ECG available for comparison Electronically Signed On 08-05-2024 17:17:08 CDT by Kleber Yanes M.D.
[2024-08-05 11:32] LABS: Hematocrit 42.4 % (37.0-47.0); Hemoglobin 13.6 g/dL (12.0-15.0); Mean Corpuscular HGB Conc 32.1 g/dl (32-36); Mean Corpuscular Hemoglobin 27.8 pg (26-34); Mean Corpuscular Volume 86.7 fl (80-100); Mean Platelet Volume 9.1 fl (7.4-10.4); Platelet Count Result 291 k/mm3 (150-375); Red Blood Count 4.89 M/mm3 (4.2-5.4); Red Cell Distribution Width 13.3 % (11.5-14.5); White Blood Count 7.6 K/mm3 (4.5-10.0)
[2024-08-05 11:47] LABS: Anion Gap 9 mmol/L (4-12); Blood Urea Nitrogen 12 mg/dL (7-17); Calcium 9.2 mg/dL (8.4-10.2); Carbon Dioxide 26 mmol/L (22-30); Chloride 102 mmol/L (98-107); Estimated Glomerular Filt Rate > 60; Glucose 149 mg/dL (65-110); Potassium 4.7 mmol/L (3.4-5.0); Sodium 137 mmol/L (137-145)
== END 2024-08-05 11:15 | disposition home or self-care (01) ==
LOC: ANHLAB 11:16
PROVIDERS: Referring Provider Obstetrics & Gynecology; Visit Provider Anesthesiology
DX: N92.6 Irregular menstruation, unspecified (principal); E11.9 Type 2 diabetes mellitus without complications; I10 Essential (primary) hypertension
CPT/HCPCS: 36415; 80048; 85027; 86850; 86900; 86901; 93005

== ENCOUNTER 2024-08-10 03:01 | Day surgery (SDC) | payer OTHER, SELFPAY ==
[2024-08-01 10:25] VITALS: BMI 58.6
--- NOTE | 2024-08-01 10:32 | PC.NURSE ---
Report to the Outpatient Waiting Room, entrance under the green pavilion located off [facility], at time _0600_ on date _[id number]_. Planned Procedure Time: _0730_.? Time changes happen often and if your time is changed the preop area will call you the afternoon before. - You and your visitor will be asked to self-screen and do not enter if you have any COVID symptoms. Please call surgeon if you need to reschedule. - A mask is optional within the hospital at this time. Patients may have clear liquids (water, carbonated beverages, clear teas, apple juice) until 3 hours prior to surgery with a maximum of 20 ounces. - No food from midnight until time of surgery and no smoking, or chewing tobacco (or any form of nicotine). No chewing gum, candy or mints. Take only the following medications with a SIP of water on the morning of surgery: ___None DO NOT STOP ANY OF YOUR OTHER PRESCRIPTION MEDICATIONS PRIOR TO SURGERY EXCEPT THE FOLLOWING Hold all vitamins and supplements for 3 days per anesthesiologist. Medications to discontinue per physician Date to take last dose Please no make-up, nail burundian, hairspray, perfume, deodorant, or body powder the day of surgery.? No jewelry (including any body piercings) or valuables the day of surgery, leave them at home.? Please take a shower or bath the night before, or the morning of, surgery with an antibacterial soap.? Wear comfortable, loose fitting clothing.? - Jewelry must be removed prior to entering the operating room.? Rings and piercings that are not removed may be cut off. - The hospital will not accept responsibility for valuables.? - Please leave all valuables, including medications, at home the day of surgery. If you are going home after surgery, a licensed explosives truck driver must drive you home.? - NO public transportation without another adult if you receive anesthesia. - We recommend that an adult stay with you for 24 hours following discharge. - We also recommend that you do not drive, make important decision, drink alcoholic beverages, or take any drugs that were not prescribed by your health care provider for at least 24 hours after your discharge time. Follow any additional instructions given to you from your surgeon. Telephone instructions given to __Franca___and asked if any additional questions and then verbalized understanding. Patient advised to call surgeon office or pre surgery nurse liaison [phone] if any additional questions.
[2024-08-10] VITALS (17 sets, daily range): BP systolic 105–137; BP diastolic 51–88; PULSE 58–78; RESP 16–23; TEMP 36.4–36.9; O2SAT 92–100; BMI 58.1
--- OUTSIDE RECORDS SUMMARY | 2024-08-10 03:03 | XMS_ITS | Clinical Summary ---
Author Organization [facility] Address [address] [place] [address] Phone Care Team Providers Care Cyber Incident Responder Name Role Phone Carl Leblanc MD Unavailable [...] 07/13/2024 9:58 PM CDT Emergency [facility] Emergency [address] [place] [address] Kalen Thacker, SCARLET Polydipsia Discharge Disposition: Discharged to home or Selfcare 07/13/2024 Travel 06/21/2024 7:58 AM CDT - 06/21/2024 10:48 AM CDT Emergency [facility] Emergency [address] [place] [address] Uday Mazariegos MD Kidney stone Discharge Disposition: [...] 6:07 PM CDT Height 157.5 cm (5' 2) 07/13/2024 6:07 PM CDT Body Mass Index [...] - 1.030 07/13/2024 8:14 PM CDT [facility] URINE PH 6.0 5.0 - 9.0 07/13/2024 8:14 PM CDT [facility] WBC ESTERASE Negative Negative 07/13/2024 8:14 PM CDT [facility] NITRITE Negative Negative 07/13/2024 8:14 PM CDT [facility] PROTEIN, RANDOM URINE 15 mg/dL(A) Negative 07/13/2024 8:14 PM CDT [facility] URINE GLUCOSE, QUAL Negative Negative 07/13/2024 8:14 PM CDT [facility] URINE KETONES Negative Negative 07/13/2024 8:14 PM CDT [facility] UROBILINOGEN Normal Normal mg/dL 07/13/2024 8:14 PM CDT [facility] URINE BLOOD Negative Negative kiet/ul 07/13/2024 8:14 PM CDT [facility] URINALYSIS COLOR Yellow 07/14/19 8:14 PM CDT [facility] URINALYSIS CLARITY Slightly Cloudy 07/13/2024 8:14 PM CDT [facility] Urine URINE SPECIMEN / Unknown Non-Phlebotomy Collection / Unknown 07/13/2024 7:40 PM CDT 07/13/2024 7:54 PM CDT us Kalen Thacker PAC URINE ORDERABLES Fin al Result Performing Organization Address City/State/[facility] Co de Phone Number [facility] [address] [place] [address] * (ABNORMAL) Urine Drug Screen (07/13/2024 7:40 PM CDT) [facility] UR AMPHETAMINE DETECTED(A) NON DETECTED 07/13/2024 8:28 PM CDT [facility] Comment: FOR MEDICAL USE ONLY. CUTOFF CONCENTRATION FOR DETECTED RESULT: AMPHETAMINE: 500 NG/ML UR BENZODIAZEPINES NON DETECTED NON DETECTED 07/13/2024 8:28 PM CDT [facility] Comment: FOR MEDICAL USE ONLY. CUTOFF CONCENTRATION FOR DETECTED RESULT: BENZODIAZAPINE: 200 NG/ML UR COCAINE METABOLITE NON DETECTED NON DETECTED 07/13/2024 8:28 PM CDT [facility] Comment: FOR MEDICAL USE ONLY. CUTOFF CONCENTRATION FOR DETECTED RESULT: COCAINE: 150 NG/ML UR OPIATES NON DETECTED NON DETECTED 07/13/2024 8:28 PM CDT [facility] Comment: FOR MEDICAL USE ONLY. CUTOFF CONCENTRATION FOR DETECTED RESULT: OPIATES: 300 NG/ML UR PHENCYCLIDINE NON DETECTED NON DETECTED 07/13/2024 8:28 PM CDT [facility] Comment: FOR MEDICAL USE ONLY. CUTOFF CONCENTRATION FOR DETECTED RESULT: PCP: 25 NG/ML UR CANNABINOID NON DETECTED NON DETECTED 07/13/2024 8:28 PM CDT [facility] Comment: FOR MEDICAL USE ONLY. CUTOFF CONCENTRATION FOR DETECTED RESULT: THC (MARIJUANA): 50 NG/ML UR BARBITURATE NON DETECTED NON DETECTED 07/13/2024 8:28 PM CDT [facility] Comment: FOR MEDICAL USE ONLY. CUTOFF CONCENTRATION FOR DETECTED RESULT: BARBITUATES: 200 NG/ML UR FENTANYL NON DETECTED NON DETECTED 07/13/2024 8:28 PM CDT [facility] Comment: FOR MEDICAL USE ONLY. CUTOFF CONCENTRATION FOR DETECTED RESULT: FENTANYL: 1.0 NG/ML Urine Non-Phlebotomy Collection / Unknown 07/13/2024 7:40 PM CDT 07/13/2024 8:15 PM CDT us Kalen Thacker PAC URINE ORDERABLES Fin al Result [facility] [address] [place] [address] * (ABNORMAL) Hemoglobin A1C w/ Estimated Glucose (07/13/2024 6:12 PM CDT) HGB-A1C 7.0(H) 4.0 - 6.0 % 07/13/2024 9:27 PM CDT [facility] Est Average Glucose 154.2 mg/dL 07/13/2024 9:27 PM CDT [facility] Blood Venipuncture / Unknown 07/13/2024 6:12 PM CDT 07/13/2024 6:21 PM CDT Narrative [facility] - 07/13/2024 9:27 PM CDT HEMOGLOBIN A1C: DIABETIC PATIENTS: WELL-CONTROLLED: 6.2 - 7.0 INTERMEDIATE WELL-CONTROLLED: 7.0 - 9.0 POORLY-CONTROLLED: >9.0 Specimens containing greater than 5% of Hemoglobin F may result in lower than expected % HbA1C results. us Kalenекатерина Duckworth Kedar PAC CHEMISTRY ORDERABLES Final Result [facility] [address] [place] [address] * (ABNORMAL) CBC with Auto Differential (07/13/2024 6:12 PM CDT) Only the most recent of2 resultswithin the time period is included. WBC 11.07 4.00 - 12.00 10(3)/mcL 07/13/2024 6:24 PM CDT [facility] RBC 4.84 3.80 - 5.30 10(6)/mcL 07/13/2024 6:24 PM CDT [facility] HEMOGLOBIN (HGB) 13.6 12.0 - 15.8 g/dL 07/13/2024 6:24 PM CDT [facility] HEMATOCRIT (HCT) 41.5 36.0 - 47.0 % 07/13/2024 6:24 PM CDT [facility] MCV 85.7 82.0 - 96.0 fL 07/13/2024 6:24 PM CDT [facility] MCH 28.1 26.0 - 34.0 pg 07/13/2024 6:24 PM CDT [facility] MCHC 32.8 31.0 - 36.0 g/dL 07/13/2024 6:24 PM CDT [facility] PLATELET COUNT 326 140 - 440 10(3)/mcL 07/13/2024 6:24 PM CDT [facility] RDW 13.3 11.8 - 15.5 % 07/13/2024 6:24 PM CDT [facility] MPV 9.6(L) 9.7 - 12.4 fL 07/13/2024 6:24 PM CDT [facility] NEUTROPHILS 60.0 47.0 - 73.0 % 07/13/2024 6:24 PM CDT [facility] LYMPHOCYTES 32.2 18.0 - 42.0 % 07/13/2024 6:24 PM CDT [facility] MONOCYTES 6.2 4.0 - 12.0 % 07/13/2024 6:24 PM CDT [facility] EOSINOPHILS 1.1 0.0 - 5.0 % 07/13/2024 6:24 PM CDT [facility] BASOPHILS 0.5 0.0 - 1.0 % 07/13/2024 6:24 PM CDT [facility] ABSOLUTE NEUTROPHILS 6.65 1.60 - 7.70 10(3)/[facility] 07/13/2024 6:24 PM CDT [facility] ABSOLUTE LYMPHOCYTES 3.56(H) 1.30 - 3.20 10(3)/[facility] 07/13/2024 6:24 PM CDT [facility] ABSOLUTE MONOCYTES 0.69 0.20 - 1.00 10(3)/[facility] 07/13/2024 6:24 PM CDT [facility] ABSOLUTE EOSINOPHIL 0.12 0.00 - 0.40 10(3)/[facility] 07/13/2024 6:24 PM CDT [facility] ABSOLUTE BASOPHILS 0.05 0.00 - 0.10 10(3)/[facility] 07/13/2024 6:24 PM CDT [facility] NRBC PER 100 WBC 0 07/14/19 6:24 PM [facility] Blood Venipuncture / Unknown 07/13/2024 6:12 PM CDT 07/13/2024 6:21 PM CDT us Uday Mazariegos MD HEMATOLOGY ORDERABLES Fin al Result [facility] [address] [place] [address] * Thyroid Stimulating Hormone (TSH) [id number] (07/13/2024 6:12 PM CDT) Pathologist [facility] TSH 1.682 0.300 - 5.000 mIU/L 07/13/2024 8:02 PM CDT [facility] Blood Venipuncture / Unknown 07/13/2024 6:12 PM CDT 07/13/2024 6:21 PM CDT us Kalen Thacker PAC CHEMISTRY ORDERABLES Final Result Performing Organization Address City/[facility]/ZIP Co de Phone Number [facility] [address] [place] [address] * (ABNORMAL) Comprehensive Metabolic Panel (Cmp) [id number] (07/13/2024 6:12 PM CDT) Only the most recent of2 resultswithin the time period is included. Pathologist [facility] SODIUM 133(L) 136 - 145 mmol/L 07/13/2024 6:43 PM CDT [facility] POTASSIUM 4.2 3.5 - 5.1 mmol/L 07/13/2024 6:43 PM CDT [facility] CHLORIDE 102 98 - 107 mmol/L 07/13/2024 6:43 PM CDT [facility] CO2, VENOUS 22 22 - 30 mmol/L 07/13/2024 6:43 PM CDT [facility] ANION GAP 13.2 <18.0 mmol/L 07/13/2024 6:43 PM CDT [facility] GLUCOSE 131(H) 70 - 99 mg/dL 07/13/2024 6:43 PM CDT [facility] BUN 14 5 - 18 mg/dL 07/13/2024 6:43 PM CDT [facility] CREATININE, BLOOD 0.83 0.60 - 1.00 mg/dL 07/13/2024 6:43 PM CDT [facility] BUN/CREATININE RATIO 17 12 - 20 ratio 07/13/2024 6:43 PM CDT [facility] TOTAL PROTEIN 7.9 6.0 - 8.0 g/dL 07/13/2024 6:43 PM CDT [facility] ALBUMIN 4.1 3.5 - 5.0 g/dL 07/13/2024 6:43 PM T [facility] A/G RATIO 1.1 1.0 - 2.2 07/13/2024 6:43 PM CDT [facility] CALCIUM 9.6 8.7 - 10.5 mg/dL 07/13/2024 6:43 PM CDT [facility] T BILI 0.7 0.2 - 1.2 mg/dL 07/13/2024 6:43 PM T [facility] SGOT (AST) 51(H) <43 U/L 07/13/2024 6:43 PM [facility] SGPT (ALT) 41 <56 U/L 07/13/2024 6:43 PM [facility] ALKALINE PHOSPHATASE 70 40 - 150 U/L 07/13/2024 6:43 PM T [facility] GFR, ESTIMATED >60 >=60 07/13/2024 6:43 PM T [facility] Comment: Creatinine Clearance is the preferred criteria for selecting drug dose adjustments in renally impaired patients. The GFR is provided as additional pertinent clinical information. GFR is reported in mL/min/1.73 sq m. Calculation based on the Chronic Kidney Disease Epidemiology Collaboration (CKD- EPI) equation refit without adjustment for race. GFR, EST. >60 >=60 025 6:43 PM T [facility] GFR, EST. NONAFRICAN >60 >=60 07/13/2024 6:43 PM CDT [facility] Blood Venipuncture / Unknown 07/13/2024 6:12 PM CDT 07/13/2024 6:21 PM CDT us Uday Mazariegos MD CHEMISTRY ORDERABLES Carline l Result Performing Organization Address [facility] Co de Phone Number [facility] [address] [place] [address] * (ABNORMAL) POCT Glucose (07/13/2024 6:07 PM CDT) GLUCOSE,BEDSID E POCT 125(H) 70 - 99 mg/dL 07/13/2024 6:13 PM CDT [facility] Comment:Patient RN Performed Blood 07/13/2024 6:07 PM CDT 07/13/2024 6:13 PM CDT us None Provider POINT OF CARE TESTING Final Resu lt Performing Organization Address [facility] Co de Phone Number [facility] [address] [place] [address] * CT RENAL STONE STUDY (ABDOMEN AND [...] Roxana Paula M.D. FT: FT Report ID: [id number] Reading Location: [place] [address] Procedure Note Roxana Duran MD - 06/21/2024 [...] Roxana Paula M.D. FT: FT Report ID: [id number] Reading Location: [id number] IMPRESSION: 4 mm calculus in the distal right ureter at the level of the UVJ with associated mild right hydronephrosis. Uday Mazariegos MD IMG CT ORDERABLES Final R esult * Gold Top Tube (06/21/2024 8:07 AM CDT) Blood No Phlebotomy Charged / Unknown 06/21/2024 8:07 AM CDT 06/21/2024 9:20 AM CDT Uday Mazariegos MD CHEMISTRY ORDERABLES Carline alvares Result [facility] [address] [place] [address] * Blue Top Tube (06/21/2024 8:07 AM CDT) Blood No Phlebotomy Charged / Unknown 06/21/2024 8:07 AM CDT 06/21/2024 9:20 AM CDT us Uday Mazariegos MD HEMATOLOGY ORDERABLES Fin al Result Performing Organization Address City/[facility]/ZIP Co de Phone Number [facility] [address] [place] [address] * Magnesium (06/21/2024 8:07 AM CDT) MAGNESIUM 1.8 1.6 - 2.6 mg/dL 06/21/2024 9:25 AM CDT [facility] Blood Venipuncture / Unknown 06/21/2024 8:07 AM CDT 06/21/2024 8:45 AM CDT us Uday Mazariegos MD CHEMISTRY ORDERABLES Carline l Result Performing Organization Address City/[facility] Co de Phone Number [facility] [address] [place] [address] * Lipase (06/21/2024 8:07 AM CDT) LIPASE 24 8 - 78 U/L 06/21/2024 9:25 AM CDT [facility] Blood Venipuncture / Unknown 06/21/2024 8:07 AM CDT 06/21/2024 8:45 AM CDT us Uday Mazariegos MD CHEMISTRY ORDERABLES Carline l Result Performing Organization Address City/[facility]/ZIP Co de Phone Number [facility] [address] [place] [address] * POCT Urine HCG () (06/21/2024 8:06 AM CDT) POC URINE Negative POC URINE CONTROL Tender Coordinator Pass Urine 06/21/2024 8:06 AM CDT Uday Mazariegos MD POINT OF CARE TESTING (DON JARVIS) Final Result from Last 3 Months Insurance MEDICAID [place] Care Teams Cyber Incident Responder Relationship Specialty Start Date End Date Provider, Not On File [place] PCP - General 03/14/23 Carl Leblanc MD [address] [facility] [address] [place] [address] Consulting Physician Urology 12/09/21
--- OUTSIDE RECORDS SUMMARY | 2024-08-10 03:04 | XMS_ITS | Clinical Summary ---
Author Organization [facility] Address [address] [place] [address] Care Team Providers Care District Court Bailiff Name Role Phone Quentin JANG MD, Bigg Spencer Primary Care Provider [phone] Source Comments [facility],non-owned Affiliates and Associated Physician Practices is amultiple site organization consisting of ambulatory clinics and hospital sitesin [place], [place], [place] and [place]. This disclosure is being madepursuant to the Care Everywhere program and may not contain all information available regarding this patient. Last updated 17.[facility] Allergies Active Allergy Reactions Criticality Noted Date [...] 2 diabetes mellitus without complication, unspecified whether assisted insulin use (HCC) Take 1 (one) tablet by mouth once daily 100 tablet 4 024 Active lisinopril (Prinivil; Zestril) 20 MG tabletIndication s:Essential hypertension Take 1 (one) tablet by mouth once daily 100 tablet 4 024 Active buPROPion XL 24hr (Wellbutrin-XL) 300 MG tabletIndication s:Depression Take 1 (one) tablet by mouth once daily Reasons: Depression 30 tablet 3 025 Active TRUEplus 5-Bevel [place] 31G X 6 MM MISC 1 (ONE) EACH BY INJECTION ROUTE ONCE DAILY 025 Active Semaglutide(0.25 or 0.5MG/DOS) 2 MG/3ML Solution Pen-injector (Ozempic (0.25 or 0.5 MG/DOSE))Indicat ions:Type 2 diabetes mellitus with stage 3 chronic kidney disease, without long-term current use of insulin, unspecified whether stage 3a or 3b CKD ([facility]) Inject 0.5 mg subcutaneously every 7 days [...] migh t be different from the original. [employer] form completed. Diapers given. 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 Recommendations: CMP and bile acids, prefer fasting [...] 6.0 Assessment & Plan (01/29/2021 5:51 PM INFORMATION ASSOC): Diabetes difficult to control. Now on TID NPH and TIDAC novolog. Improved fasting values and a low today. Still with some difficulty with postprandial dinner elevations. Recommendations 1. See Supervisor Wet Room note for insulin changes 2. Continue checking [...] blood glucose measurements Close contact with our adult educator to optimize glycemic control on at [...] blood glucose measurements Close contact with our adult educator to optimize glycemic control on at [...] blood glucose measurements Close contact with our adult educator to optimize glycemic control on at [...] 10/23/2020 Assessment & Plan (01/29/2021 6:03 PM INFORMATION ASSOC): Last AC measurement at the 95th percentile. [...] Type Department Care Team Description 07/25/2024 Telephone [facility] - Internal Med [address] [place] [address] Bigg Saavedra III, MD Medication Prior Auth Request 07/18/2024 Travel 07/17/2024 10:30 AM CDT Office Visit [facility] - Internal Med [address] [place] [address] Bigg Saavedra III, MD Type 2 diabetes [...] in father; Polydipsia 07/17/2024 Travel 07/03/2024 Telephone [facility] - Centralized Scheduling [address] [place] [phone] Anel Land MD Appointment 06/05/2024 4:00 PM CDT Office Visit [facility] - Sleep Services [address] [place] [address] Naeem Lay MD Iron deficiency (Primary Dx); [...] Recorded Patient Health Questionnaire-2 Score 2 07/18/2024 [place] Depression Scale Answer Date Recorded RETIRED 04/22/2022 [...] CDT Respiratory Rate 16 01/19/2024 9:39 AM INFORMATION ASSOC Oxygen Saturation 100% 07/18/2024 9:07 AM CDT Inhaled Oxygen Concentration - - Weight 145.2 kg (320 lb) 07/18/2024 9:07 AM CDT Height 157.5 cm (5' 2) 07/17/2024 10:20 AM CDT Body Mass Index 58.53 07/17/2024 10:20 AM CDT Plan of Treatment Upcoming Encounters Date Type Department Care Team (Latest Contact Info) Description 09/11/2024 6:30 AM CDT Appointment [facility] MRI [address] [place] [address] Bigg Saavedra III, MD [address] [place] [address] [address]L [place] [phone] 10/10/2024 10:30 AM CDT Hospital Encounter [facility] ENDOSCOPY [address] [place] [phone] Zacarias Saleh MD [address] [place] [address] [address] [place] [address] Surgery General 10/10/2024 10:30 AM CDT - 10/10/2024 11:15 AM CDT Surgery [facility] ENDOSCOPY [address] [place] [phone] Zacarias Saleh MD [address] [place] [address] [address] [place] [address] COLONOSCOPY SCREEN---PAT needed 10/16/2024 9:00 AM CDT Office Visit [facility] - Internal Med [address] [place] [address], [place] [address] Ivette Palma PA-C [address] [place] [address] DEPT [place] [phone] 10/25/2024 9:00 AM CDT Office Visit [facility] - GI [address] [place] [address], [place] [phone] Osiris Herring MD [address] [place] [address] 12/06/2024 4:00 PM CDT Office Visit [facility] - [facility] Services [address] [place] [address] Naeem Lay MD [address] 2[address] DIV OF PULMONARY/[place] [address] Scheduled Procedures Name Priority Associated Diagnoses Date/Ti [...] (HCC) COMPREHENSIVE METABOLIC PANEL 02/01/2024 7:47 AM INFORMATION ASSOC MICROALB/CREAT RATIO URINE RANDOM PANEL 02/01/2024 7:43 AM INFORMATION ASSOC PROC OPH DIAB BILAT RET SCRN WCOMP INTERP Routine 06/14/2023 12:04 PM CDT Type 2 diabetes mellitus without complication, unspecified whether assisted insulin use HEPATITIS C AB W/RFLX TO HCV RNA QN PCR 10/06/2022 9:58 AM CDT HIV-1 HIV-2 ANTIBODY + HIV P24 AG PANEL 10/06/2022 9:58 AM CDT from Last 3 Months or Most Recently Relevant to Health Maintenance Results * HEMOGLOBIN A1C - POINT OF CARE (AMB) [facility] (07/17/2024 10:30 AM CDT) Hemoglobin A1c POCT 7.2 % [facility] [address] [place] [address] BLOOD SPECIMEN / Unknown 07/17/2024 10:30 AM CDT Bigg Saavedra III, MD LAB - POINT OF CARE ORDER ANILA Final Result [facility] [address] [place] [address] [address] [facility], [place] [address], [facility] [phone] * (ABNORMAL) COMPREHENSIVE METABOLIC PANEL (02/01/2024 7:47 AM INFORMATION ASSOC) Glucose 141(H) 65 - 99 mg/dL [facility] [...] Comment: REPORT COMMENT: FASTING:YES Test Performed at: [employer] [facility] [address] [place] [phone] AMY DAVIDSON MD 02/01/2024 7:47 AM INFORMATION ASSOC 02/01/2024 7:47 AM INFORMATION ASSOC Norma Márquez MD LAB - CHEMISTRY ORDERABL ES Final Result [facility] [id number] [place] [address] * MICROALB/CREAT RATIO URINE RANDOM PANEL (02/01/2024 7:43 AM INFORMATION ASSOC) Creatinine Urine 168 20 - 275 mg/dL [...] category. REPORT COMMENT: FASTING:YES Test Performed at: [employer] [id number] [facility] [place] [address] AMY DAVIDSON MD 02/01/2024 7:43 AM INFORMATION ASSOC 02/01/2024 7:43 AM INFORMATION ASSOC Bigg Saavedra III, MD LAB - URINE CHEMISTRY ORD ERABLES Final Result Performing Organization Address [facility] Co de Phone Number [facility] [address] [place] [phone] * Diabetes Retinopathy Screening (06/14/2023 12:04 PM CDT) [facility] IDX DR SCREEN No Diabetic Retinopathy Detected: [...] SURGICAL ORDERABLES Final Result Performing Organization Address City/[facility]/ZIP Co de Phone Number [facility] * HEPATITIS C AB W/RFLX TO HCV RNA QN PCR (10/06/2022 9:58 AM CDT) [facility] Hepatitis C Antibody NON-REACTI VE NON-REACT LISANDRA [facility] Comment: HCV antibody was non-reactive. There is no laboratory evidence of HCV infection. In most cases, no further action is required. However, if recent HCV exposure is suspected, a test for HCV RNA (test code 10700) is suggested. For additional information please refer to http://[employer]/faq/PFA02u5 (This link is being provided for informational/ educational purposes only.) Test Performed at: [employer] [facility] [place] [address] AMY DAVIDSON MD 10/06/2022 9:58 AM CDT 10/06/2022 9:59 AM CDT Bigg Saavedra III, MD LAB - CHEMISTRY ORDERABLE S Final Result Performing Organization Address City/State/[place] Co de Phone Number [facility] [address] [place] [address] * HIV-1 HIV-2 ANTIBODY + HIV P24 AG PANEL (10/06/2022 9:58 AM CDT) Pathologist [facility] HIV Screen 4th Generation w Reflex NON-REACT [...] purpose. For additional information please refer to http://[employer]/faq/WDH116 (This link is being provided for informational/ educational purposes only.) The performance of this assay has not been clinically validated in patients less than 2 years old. Test Performed at: [facility] [address] [place] [address] AMY DAVIDSON MD 10/06/2022 9:58 AM CDT 10/06/2022 9:59 AM CDT Bigg Saavedra III, MD LAB - CHEMISTRY ORDERABLE S Final Result [facility] [id number] [place] [address] from Last 3 Months or Most Recently Relevant to Health Maintenance Insurance [facility] Advance Directives * Full Code (Latest [...] 3:41 AM 01/27/2021 4:[address] Bailiff Relationship Specialty Start Date End Date Bigg Saavedra III, MD [address] [phone] PCP - General 04/28/21
--- OUTSIDE RECORDS SUMMARY | 2024-08-10 03:04 | XMS_ITS | Clinical Summary ---
Author Organization [facility] Address [address] [place] [address] Care Team Providers Care Sheet Metal Foreman Name Role Phone Jyothi Villegas DO Unavailable No, Physician Primary Care Provider [phone] Allergies Active Allergy Reactions Criticality Noted Date [...] Date [facility] Overview (05/05/2019): Recently diagnosed via abnormal 3 hour Fastings adequately controlled and 1 hours adequately controlled Will give logs so she can email to use [employer] Currently diet controlled only Binge eating disorder [...] weeks Assessment & Plan (04/07/2019 12:04 PM FOREST LAW AND POLICY PROFESSOR): We discussed that the current growth pattern is consistent with accelerated growth, and this is often seen with GDM. Ms. Galvan has an elevated 1 hr GTT and will be getting her 3 hr GTT early next week. We discussed a potential recommendation for primary CS if EFW near delivery is > 5000 g (no GDM) or >79352 g (with GDM). We discussed the risk of labor dystocia and shoulder dystocia with macrosomia. There is also a risk of metabolic abnormalities with accelerated growth. Supervision of high-risk , third [facility] 04/04/2019 Overview (05/05/2019): [x] Co-management vs. [] Full [facility] Care; Referring Provider: Dr Villegas #[phone] [] Dating Criteria: [x] Labs: [12/06/2018]Rh O+ [...] [] MOC: [] Method of feeding: [] Director Perioperative: [] PP Depression Discussed, EPDS Possible cHTN [...] consultation prior to delivery [ ] Recommend yoke setter visit (pt to schedule next week) [ ] Recommend meeting with psychiatrist re: binge eating disorder and excessive weight gain- options for therapy. Pt trying to get reestablished with psychiatrist Assessment & Plan (04/07/2019 11:53 AM FOREST LAW AND POLICY PROFESSOR): We discussed that excessive weight gain and [...] [facility] Care; Referring Provider: Jyothi Villegas [phone] [x] Dating Criteria: LMP 08/16/18 JOSÉ ANTONIO [...] [] MOC: [] Method of feeding: [] Director Perioperative: [] PP Depression Discussed: Achalasia of esophagus [...] on file Legal Sex Female 1:23 AM FOREST LAW AND POLICY PROFESSOR Gender Identity Female 12/06/2018 12:58 PM CDT [...] Comments Blood Pressure 134/86 05/10/2024 9:20 AM FOREST LAW AND POLICY PROFESSOR Pulse 87 05/10/2024 9:20 AM FOREST LAW AND POLICY PROFESSOR Temperature 36.4 C (97.6 F) 05/10/2024 9:20 AM FOREST LAW AND POLICY PROFESSOR Respiratory Rate 18 05/10/2024 9:20 AM FOREST LAW AND POLICY PROFESSOR Oxygen Saturation 98% 05/10/2024 9:20 AM FOREST LAW AND POLICY PROFESSOR Inhaled Oxygen Concentration - - Weight 145.2 kg (320 lb) 05/10/2024 9:20 AM FOREST LAW AND POLICY PROFESSOR Height 157.5 cm (5' 2) 05/10/2024 9:20 AM FOREST LAW AND POLICY PROFESSOR Body Mass Index 58.53 05/10/2024 9:20 AM FOREST LAW AND POLICY PROFESSOR Plan of Treatment Health Maintenance Due Date [...] eGFR 123 mL/min/1. 73 m2 [facility] ([place]) Comment: Interpretive Data Reference Interval Normal >/= [...] 5:48 PM CDT 10/03/2021 5:51 PM CDT Narcisa Diaz NP LAB BLOOD ORDERABLES Final R esult [facility] PIERRE ([place]) 1 [facility] Department [place] [address] * Hemoglobin A1c (12/06/2018 2:40 PM CDT) Hgb A1C 5.6 4.0 - 5.6 % [facility] Estimated Average Glucose 114 mg/dL [facility] Comment: The ADA recommends reporting an estimated Average Glucose (eAG) with all Hemoglobin A1c results using the equation derived from a study of 507 normal and diabetic adults. Minority populations were underrepresented and children were not included. (Diabetes Care 31:8670-5691, 2008). The eAG is not equivalent to a fasting glucose. Blood specimen (specimen) 12/06/2018 2:40 PM CDT 12/06/2018 3:37 PM CDT us Ethan Gil MD LAB BLOOD ORDERABLES Final Result [facility] [place] [address] * ThinPrep Imaging Pap Reflex HPV mRNA E6/E7 (08/30/2017 1:03 PM CDT) Report status [facility] [place] Comment:Result canceled by t he ancillary CLINICAL INFORMATION: [facility] [...] has been evaluated with computer assisted technology. Army Ranger [facility] [place] Comment: MLO, CT(ASCP) CT screening location: [place] [address] [address] [place] [address] Review replenishment merchandising associate [facility] [place] Comment:Result canceled [...] Comment Performing Organization Information: Site ID: Name: [facility] Address: [facility] Administration [place] [address] Director: Ibrahima Cook us Addis Walker MD LAB PATHOLOGY ORDER ANILA Final Result [facility] [place], [place] from Last 3 Months or Most Recently Relevant to Health Maintenance Insurance [facility] Advance Directives For more information, please contact: [phone] * Full Code (Latest Code Status on File) Date Activated Date Inactivated Comments 11/02/2018 11:38 AM 11/02/2018 5:16 PM * Full Code Date Activated Date Inactivated Comments 08/26/2017 11:12 AM 08/26/2017 3:04 PM Care Teams Sheet Metal Foreman Relationship Specialty Start Date End Date No, Physician PCP - General 03/10/19 Jyothi Villegas DO [address] [facility] [id number] [place] [address] Referring Physician Obstetrics and Gynecology 11/09/18
--- OUTSIDE RECORDS SUMMARY | 2024-08-10 03:04 | XMS_ITS | Clinical Summary ---
Author Organization [facility] Address [address] [place] [address] Dr. [place], [place] [address] Phone Care Team Providers Care Control Center Operator Name Role Phone Unavailable Primary Care Provider [...] on file Legal Sex Female 10:23 AM WOOD GRINDER OPERATOR Gender Identity Not on file Sexual Orientation Not on file Occupation Industry Job Start Date Job End Date Not on file Not on file Not on file Not on file Last Filed Vital Signs Vital Sign Reading Time Taken Comments Blood Pressure 148/87 05/12/2016 12:07 PM WOOD GRINDER OPERATOR Pulse 61 05/12/2016 12:07 PM WOOD GRINDER OPERATOR Temperature 36.6 C (97.8 F) 05/12/2016 11:57 AM WOOD GRINDER OPERATOR Respiratory Rate 16 05/12/2016 12:07 PM WOOD GRINDER OPERATOR Oxygen Saturation 100% 05/12/2016 12:07 PM WOOD GRINDER OPERATOR Inhaled Oxygen Concentration - - Weight 88.5 kg (195 lb) 05/12/2016 11:09 AM WOOD GRINDER OPERATOR Height 157.5 cm (5' 2) 05/08/2016 2:18 PM WOOD GRINDER OPERATOR Body Mass Index 35.67 05/08/2016 2:18 PM WOOD GRINDER OPERATOR Plan of Treatment Health Maintenance Due Date [...] Advance Directives For more information, please contact: [phone] * Full Code (Latest Code Status on File) Date Activated Date Inactivated Comments 05/12/2016 11:27 AM 05/12/2016 2:27 PM * Full Code Date Activated Date Inactivated Comments 05/12/2016 11:01 AM 05/12/2016 11:27 AM
--- OUTSIDE RECORDS SUMMARY | 2024-08-10 03:04 | XMS_ITS | Referral Summary ---
Author Organization [facility] Address [address] [place] [address] Care Team Providers Care Packager Head Name Role Phone Jyothi Villegas DO Unavailable No, Physician Primary Care Provider [phone] Allergies Active Allergy Reactions Criticality Noted Date [...] Date [facility] Overview (05/05/2019): Recently diagnosed via abnormal 3 hour Fastings adequately controlled and 1 hours adequately controlled Will give logs so she can email to use [employer] Currently diet controlled only Binge eating disorder [...] weeks Assessment & Plan (04/07/2019 12:04 PM SOYBEAN SPECIALTIES COOK): We discussed that the current growth pattern is consistent with accelerated growth, and this is often seen with GDM. Ms. Galvan has an elevated 1 hr GTT and will be getting her 3 hr GTT early next week. We discussed a potential recommendation for primary CS if EFW near delivery is > 5000 g (no GDM) or >03793 g (with GDM). We discussed the risk of labor dystocia and shoulder dystocia with macrosomia. There is also a risk of metabolic abnormalities with accelerated growth. Supervision of high-risk , third [facility] 04/04/2019 Overview (05/05/2019): [x] Co-management vs. [] Full [facility] Care; Referring Provider: Dr Villegas #[phone] [] Dating Criteria: [x] Labs: [12/06/2018]Rh O+ [...] [] MOC: [] Method of feeding: [] Associate Data Scientist: [] PP Depression Discussed, EPDS Possible cHTN [...] consultation prior to delivery [ ] Recommend snow groomer visit (pt to schedule next week) [ ] Recommend meeting with psychiatrist re: binge eating disorder and excessive weight gain- options for therapy. Pt trying to get reestablished with psychiatrist Assessment & Plan (04/07/2019 11:53 AM SOYBEAN SPECIALTIES COOK): We discussed that excessive weight gain and [...] Overview (11/29/2018): [] Co-management vs. 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 Not on file Not on yuli e Last Filed Vital Signs Vital Sign Reading Time Taken Comments Blood Pressure 134/86 05/10/2024 9:20 AM SOYBEAN SPECIALTIES COOK Pulse 87 05/10/2024 9:20 AM SOYBEAN SPECIALTIES COOK Temperature 36.4 C (97.6 F) 05/10/2024 9:20 AM SOYBEAN SPECIALTIES COOK Respiratory Rate 18 05/10/2024 9:20 AM SOYBEAN SPECIALTIES COOK Oxygen Saturation 98% 05/10/2024 9:20 AM SOYBEAN SPECIALTIES COOK Inhaled Oxygen Concentration - - Weight 145.2 kg (320 lb) 05/10/2024 9:20 AM SOYBEAN SPECIALTIES COOK Height 157.5 cm (5' 2) 05/10/2024 9:20 AM SOYBEAN SPECIALTIES COOK Body Mass Index 58.53 05/10/2024 9:20 AM SOYBEAN SPECIALTIES COOK Plan of Treatment Not on file Procedures [...] eGFR 123 mL/min/1. 73 m2 [facility] ([place]) Comment: Interpretive Data Reference Interval Normal >/= [...] LAB BLOOD ORDERABLES Final R esult [facility] GABBY ([place]) 1 [facility] Department of Laboratories [place], [place] [id number] * Hemoglobin A1c (12/06/2018 2:40 PM CDT) Hgb A1C 5.6 4.0 - 5.6 % [facility] GONZALES Estimated Average Glucose 114 mg/dL [facility] Comment: The ADA recommends reporting an estimated Average Glucose (eAG) with all Hemoglobin A1c results using the equation derived from a study of 507 normal and diabetic adults. Minority populations were underrepresented and children were not included. (Diabetes Care 31:7260-4170, 2008). The eAG is not equivalent to a fasting glucose. Blood specimen (specimen) 12/06/2018 2:40 PM CDT 12/06/2018 3:37 PM CDT us Ethan Gil MD LAB BLOOD ORDERABLES Final Result L[facility] SEGAL [address] [place] [address] * ThinPrep Imaging Pap Reflex HPV mRNA [...] [place] Comment:Result canceled by t tali ancillary [facility] [place] Comment: This Pap test has been evaluated with computer assisted technology. Coal Briquette Machine Operator [facility] - Comment: MLO, CT(ASCP) CT screening location: [place] [address] [place] [address] Review tax advisor [facility] [place] Comment:Result canceled by t [...] Comment Performing Organization Information: Site ID: Name: [facility] Address: [facility] Administration [place] [address] Director: Ibrahima Cook Addis Walker MD LAB PATHOLOGY ORDER ANILA Final Result [facility] - [place], [place] from Last 3 Months or Most Recently Relevant to Health Maintenance Insurance [facility] Advance Directives For more information, please contact: [phone] * Full Code (Latest Code Status on File) Date Activated Date Inactivated Comments 11/02/2018 11:38 AM 11/02/2018 5:16 PM * Full Code Date Activated Date Inactivated Comments 08/26/2017 11:12 AM 08/26/2017 3:04 PM Care Teams Packager Head Relationship Specialty Start Date End Date No, Physician PCP - General 03/10/19 Jyothi Villegas DO [address] [facility] [id number] [place] [address] Referring Physician Obstetrics and Gynecology 11/09/18
[2024-08-10] MEDS: LACTATED RINGERS 1,000 ML 30 ML IV CONT ×2 (06:35→10:01)
[2024-08-10 06:39] LABS: Glucose Point of Care 138 mg/dl (65-105)
[2024-08-10 06:44] LABS: BEDSIDEPREGUCG Negative (Negative)
[2024-08-10] MEDS: ACETAMINOPHEN 500 MG TABLET 1000 MG PO ×4 (06:50→23:33)
[2024-08-10] MEDS: KETOROLAC 15 MG/ML VIAL (*BKC) IV PUSH (06:50)
--- NOTE | 2024-08-10 07:12 | WPDANESEPPF ---
Anes - Initial Pre Proc Eval Procedure: Operation Date: 08/10/24 07:30 Proposed Procedures p Robotic Assisted Total Laparoscopic Hysterectomy with Bilateral Salpingectomy, - Shyam Espinal MD Date/Time: 08/10/24 07:12 Surgeon: Shyam Espinal MD Pre Op Diagnosis: abnormal uterine bleeding Patient Data Age: 33 Gender: F Height: 1.57 m Weight: 144.1 kg Last Vital Signs Temp 98.3 F 08/10/24 06:00 Pulse 68 08/10/24 06:00 Resp 16 08/10/24 06:00 BP 126/70 08/10/24 06:00 Pulse Ox 100 08/10/24 06:00 O2 Del Method Room Air 08/10/24 06:00 Allergies Allergy/AdvReac Type Severity Reaction Status Date / Time latex Allergy Intermediate Rash Verified 08/10/24 06:41 dulaglutide (From Trulicity) Allergy Unknown Rash Verified 08/10/24 06:41 diphenhydramine (From AdvReac Mild Hyperactive Verified 08/10/24 06:41 Benadryl) Home Medications ?Medication ?Instructions ?Recorded ?Confirmed ?Type atorvastatin 10 mg tablet (Lipitor) 10 mg PO DAILY 05/24/24 08/10/24 History liraglutide 0.6 mg/0.1 mL (18 mg/3 See Rx Instructions subcut .COMPLEX 05/24/24 08/01/24 History mL) subcutaneous pen injector lisinopril 20 mg tablet 20 mg PO DAILY 05/24/24 08/10/24 History aripiprazole 10 mg tablet (Abilify) 10 mg PO DAILY 08/01/24 08/10/24 History lisdexamfetamine 70 mg capsule 70 mg PO DAILY 08/01/24 08/01/24 History (Vyvanse) Laboratory Tests 08/10/24 08/10/24 06:15 06:34 POC Capillary Glucose 138 H mg/dl (65-105) POC Urine HCG, Qual Negative (Negative) Patient hx anesthesia problems: post op nausea/vomiting Family hx anesthesia problems: none Results Review: All pre-operative results and documents have been reviewed as part of the pre-operative evaluation. [facility] Past Medical History Medical History Fatty liver disease, nonalcoholic (02/25/22) Hypertension History of PCOS Depression Gestational diabetes mellitus Gestational [-induced] hypertension without significant proteinuria, complicating childbirth Diabetes type 2 rx meds Anxiety Bipolar 1 disorder Achalasia Surgical History Surgical History H/O lithotripsy (03/26/22) kidney stone History of hysteroscopy (12/25/21) Laparoscopic bilateral tubal ligation via electrocautery Hysteroscopy with endometrial ablation History of hysteroscopy (12/04/21) Hscope D&C History of appendectomy History of esophageal hernia repair (~2012) History of 06/21/19 03/10/21 Family History Family History Mother Multiple sclerosis Hypertension Malignant neoplasm of uterus Grandparent Parkinson disease Father Colon cancer Sibling Kidney stones Social History Social History Years smoked: 2 Smoking status: Current some day smoker Tobacco type: e-cigarettes/vaping Alcohol intake: current Alcohol use details: Very rarely 1-2 a year Substance use: never Substance use type: does not use Do You Feel Safe in your Home?: Yes Lack of Transportation: No Lack of Food: Never True Current Housing: I Have Housing Concerned About Future Housing: No Difficulty Paying Gas/Electric Bills: No Difficulty Paying for Meds: No Currently Unemployed: No Education: Associate Degree Difficulty w/ Childcare or Family Care: No Living arrangements: with family Additional living arrangements comments: Occupation/Education: occupation 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 [employer] Gender identity (if verbalized by the patient): Female Sexual Orientation (if Verbalized by the Patient): Straight or Heterosexual Spiritual care concerns: No Anes - Eval Final PreProcedure Day of Procedure 08/10/24 07:12 Patient weight: morbidly obese Lungs: normal air movement Airway: Mallampati scale class III Neurological: alert and oriented Last oral intake: >/= 8 hours ASA classification: IV Emergent: no Anesthetic plan: proceed Anesthesia type and monitoring: general ETT and standard monitoring Results Review: All pre-operative results and documents have been reviewed as part of the pre-operative evaluation. Pt w BMI 58, HTN, hyperlipidemia, DM fsbs 138, STEPAN on CPAP (mod) and vapes daily. Full discussion w pt regarding additional PIV, and will proceed to the best of our ability for this surgery planned laparoscopic. Informed Consent: The patient's anesthetic plan and its attendant risks and benefits were discussed with the patient/family/POA. Questions were solicited and answers provided to the satisfaction of the patient/family/POA.
--- NOTE | 2024-08-10 07:15 | WPDHPUPDATE1 ---
History and Physical Update Update Date/Time: 08/10/24 07:15 History and Physical has been reviewed, including an updated exam of the patient. There are NO changes in the patient's condition. Risks, benefits, and alternatives have been discussed and questions answered. Patient agrees to proceed with procedure.
[2024-08-10] MEDS: SCOPOLAMINE 1 MG PATCH 1 PATCH TRANSDERM (07:17)
[2024-08-10] MEDS: ceFAZolin 3 GM/D5W 100 ML 100 ML IVPB (07:23)
--- NOTE | 2024-08-10 08:35 | S_PTH ---
PATIENT: Franca Buck LOC: [facility] U#:[id number] AGE/SX: 33/F ROOM: RE08/10/[address]: Shyam Espinal MD : 1990 BED: DIS: 08/11/2024 SPEC #: [id number] RECD: 08/10/24 10:58 STATUS: MICHAEL REQ #: [id number] RAUL: 08/10/24 08:[address]: Shyam Espinal DEPT: [facility] Surgical RECD BY: Citlalli Lauren ENTERED: 08/10/24 10:59 SP TYPE: Surgical OTHR DR: PHYSICIAN NOT ON STAFF Tissues: A - Uterus Procedures: Hematoxylin and Eosin Stain Gross and Microscopic Level 5
[2024-08-10] MEDS: METHYLENE BLUE 0.5% INJ 10 ML AMPULE 20 ML IRRIGATION (08:41)
--- NOTE | 2024-08-10 09:47 | W.PM.PROC2 ---
Procedure Note - Detailed Date of Procedure 08/10/24 Pre-op Diagnosis 1 menometrorrhagia 2. Post endometrial ablation syndrome 3. Prior section x2 Post-op Diagnosis Same Procedure Performed Robotic assisted total laparoscopic hysterectomy with bilateral salpingectomy Surgeon Shyam Espinal MD Anesthesia General Findings Uterus mildly enlarged and globular. Tubes with evidence of prior tubal ligation and ovaries without abnormality. Dense adhesions of the bladder to the anterior cervix were also noted, with bladder integrity identified during the case as well as postoperatively by back filling the bladder with 300cc of indigo carmine dye fluid. Description of Procedure Patient was prepped and draped usual manner for this procedure. Cervical instruments were placed for uterine mobility throughout the case. Abdominal trocar sites were then placed under direct visualization and these trocars were then attached to the [employer] system and instruments were placed. Surgeon then moved to the console. Bilaterally the mesial salpinx was cauterized and cut to allow the segments of tube to be removed. Round ligaments bilaterally cauterized and cut the blood posterior flap of the broad ligament was incised without difficulty. Uterine ovarian ligaments were cauterized and cut to drop the ovary out of the operative field. Bladder flap was developed with difficulty due to prior adhesions. Prior to dissection bladder was backfilled to ascertain the upper margin, after bladder was drained the bladder was successfully dissected off of the anterior portion of the cervix. Uterine vessels then cauterized and cut and the posterior colpotomy incision was made. This was carried circumferentially without difficulty the cervix was from the vagina. Uterus was then delivered into the vagina and irrigation was undertaken. Anterior defect of the vagina was noted and using a V lock suture this was grasped at its apex and in a running manner was approximated with the V lock suture with good approximation noted. At this point the vaginal cuff was then closed using V lock suture from the right angle to the midline and from left angle to the midline with good approximation and hemostasis noted. Irrigation was undertaken and there was no active bleeding. Joon was placed empirically throughout on all of the raw edges. Gas was allowed to escape further evaluation revealed no bleeding. Trocars were then removed and approximated using 4-0 Monocryl and skin glue. Patient was sent to recovery room in stable condition. Estimated Blood Loss 200 Drains No Packing No Pathology Yes Complications No immediate complications Condition Stable Disposition PACU [facility] Billing Surgery - Charge Forward: Surgery Billing
[2024-08-10 10:19] LABS: Glucose Point of Care 187 mg/dl (65-105)
[2024-08-10] MEDS: fentaNYL CITRATE INJ (*CRX) 100 MCG/2 ML VIAL 25 MCG IV PUSH ×4 (11:06→11:23)
[2024-08-10] MEDS: KETOROLAC 30 MG/ML VIAL (*BKC) IV PUSH (12:20)
[2024-08-10] MEDS: LACTATED RINGERS 1,000 ML 125 ML IV CONT (12:25)
[2024-08-10] MEDS: oxyCODONE HCL (*CRX) 5 MG TAB IR 10 MG PO (12:25)
[2024-08-10] MEDS: SIMETHICONE 80 MG TAB.CHEW PO ×2 (12:25→17:10)
[2024-08-10] MEDS: metroNIDAZOLE 500 MG TABLET PO ×2 (14:21→21:33)
[2024-08-10] MEDS: DOCUSATE SODIUM 100 MG CAPSULE PO (17:10)
[2024-08-10] MEDS: ENOXAPARIN 40 MG/0.4 ML SYRINGE SUB-Q (21:32)
[2024-08-10] MEDS: IBUPROFEN 600 MG TABLET PO (21:35)
[2024-08-11] MEDS: oxyCODONE HCL (*CRX) 5 MG TAB IR 10 MG PO (01:38)
[2024-08-11 03:38] VITALS: BP 106/60; PULSE 69; RESP 18; TEMP 36.7; O2SAT 94
[2024-08-11] MEDS: IBUPROFEN 600 MG TABLET PO ×2 (03:38→09:21)
[2024-08-11 04:54] LABS: Basophils Percent Auto 0.1 % (0.2-1.2); Hematocrit 38.6 % (37.0-47.0); Immature Granulocyte Absolute 0.13 K/mm3 (0.00-0.031); Immature Granulocyte Percent A 0.9 % (0-0.5); Lymphocytes Absolute Auto 1.82 K/mm3 (0.9-3.2); Lymphocytes Percent Auto 13.1 % (18.3-44.2); Mean Corpuscular HGB Conc 31.1 g/dl (32-36); Mean Corpuscular Hemoglobin 27.3 pg (26-34); Mean Corpuscular Volume 87.7 fl (80-100); Mean Platelet Volume 9.7 fl (7.4-10.4); Monocytes Absolute Auto 0.8 K/mm3 (0.1-0.6); Monocytes Percent Auto 5.9 % (2.6-8.5); Neutrophils Absolute Auto 11.1 K/mm3 (1.3-6.7); Platelet Count Result 329 k/mm3 (150-375); Red Cell Distribution Width 13.2 % (11.5-14.5); White Blood Count 13.9 K/mm3 (4.5-10.0)
[2024-08-11 05:05] LABS: Anion Gap 9 mmol/L (4-12); Blood Urea Nitrogen 12 mg/dL (7-17); Calcium 9.1 mg/dL (8.4-10.2); Carbon Dioxide 21 mmol/L (22-30); Chloride 103 mmol/L (98-107); Estimated CRCL calculation 139 ml/min; Estimated Glomerular Filt Rate > 60; Glucose 152 mg/dL (65-110); Potassium 4.6 mmol/L (3.4-5.0); Sodium 133 mmol/L (137-145)
[2024-08-11] MEDS: ACETAMINOPHEN 500 MG TABLET 1000 MG PO ×2 (06:10→09:21)
[2024-08-11] MEDS: metroNIDAZOLE 500 MG TABLET PO (06:27)
[2024-08-11 08:55] VITALS: BP 134/88; PULSE 62; RESP 18; TEMP 37.3; O2SAT 99
[2024-08-11] MEDS: SIMETHICONE 80 MG TAB.CHEW PO (09:22)
[2024-08-11] MEDS: oxyCODONE HCL (*CRX) 5 MG TAB IR PO (09:22)
[2024-08-11] MEDS: DOCUSATE SODIUM 100 MG CAPSULE PO (09:22)
== END 2024-08-11 10:40 | disposition home or self-care (01) ==
LOC: ANHSURGERY 05:51 → ANHOB2 11:43
PROVIDERS: Visit Provider Obstetrics & Gynecology
PROC: (CPT 58571; principal; 2024-08-10 07:30)
DX: N92.1 Excessive and frequent menstruation with irregular cycle (principal); N99.85 Post endometrial ablation syndrome; E11.9 Type 2 diabetes mellitus without complications; F17.290 Nicotine dependence, other tobacco product, uncomplicated; E66.01 Morbid (severe) obesity due to excess calories; Z68.43 Body mass index [BMI] 50.0-59.9, adult
CPT/HCPCS: 58571; S2900; 36415; 80048; 82948; 85025; 88307; 99199; A9270; J0690; J1100; J1171; J1650; J1885; J2003; J2250; J2405; J2704; J3010; J7030; J7120; Q9968